=== PATIENT | male | born 1965 | race Caucasian/White ===

== ENCOUNTER 2017-01-27 01:35 | Inpatient (IN) | payer OTHER, MEDICAID ==
[~2017-01-27] VITALS: Ht 170.2 cm; Wt 83.9 kg
[2017-01-27] VITALS (14 sets, daily range): BP systolic 86–130; BP diastolic 50–83; PULSE 78–128; RESP 11–29; TEMP 97.7–98.5; O2SAT 96–99
[~2017-01-27 01:35] MED LIST: ALBU2.5V7 INH; ATII2 IM; COLL100 GT; COLL100 PO; DEPAK250 GT; DEPL250/5 GT; DIPH-179 PO; DULR10 RC; FERR15DR26 GT; IPRA0.2S6 INH; LACT1CAP7 GT; LEVA1.25 INH; LEVA1.25 NEB; LEVE100S GT; LEVE500T13 PO; LEVE500T53 GT; LORA-259 GT; LORA2TAB IM; MAGN400O4 GT; METO25TA6 GT; MULT9LIQ GT; PATANOL OP; PERIDEX MM; PHEN95CM GT; PIPE3.379 IV; REGL10 GT; SENN8.6T19 GT; TYLL650 GT; UTI-Stat Liquid GT; VALPROIC ACID GT; VIT500LI GT; ZINC220T GT; [UNRECOGNIZED DRUG - OTHER] GT
--- NOTE | 2017-01-27 01:35 | NUR ---
Patient to ER bed 2 to gown for evaluation. Side rails up. Report given to MAXIME Toussaint.
--- NOTE | 2017-01-27 01:35 | NUR ---
PT BIB [facility]ANCE FROM [facility] C/O SEIZURE 2X THAT LAST 5-7 MINUTES. DIAPHORETIC WITH HR 111. AFEBRILE.
--- NOTE | 2017-01-27 01:36 | NUR ---
ER at bedside examining patient.
--- NOTE | 2017-01-27 02:00 | NUR ---
# 22 gauge angiocath placed to RIGHT HAND. Use of asceptic technique. Opsite placed over site. Blood return noted. Blood for lab drawn from site. Flushed with 10 cc of normal saline. No evidence of infiltration noted. Patient tolerated well.
--- NOTE | 2017-01-27 02:20 | NUR ---
# 16 FR Yee catheter with use of sterile technique. Immediate return of 0 cc urine noted. Bedside drainage bag placed below level of bladder. Urine sample collected and sent to lab. Pt tolerated procedure WELL. Patient arrived with yee in place, changed due to standard of practice prior to admission. Patient unable to toilet self.
[2017-01-27] MEDS ORDERED: NACL 0.9% 1,000 ML IV ONE (02:21)
[2017-01-27 02:42] LABS: BASOPHILS # (AUTO) 0.2 K/uL (0.0-0.2); BASOPHILS % (AUTO) 1.3 % (0.0-2.0); EOSINOPHILS # (AUTO) 0.1 K/uL (0.0-0.4); EOSINOPHILS % (AUTO) 0.8 % (0.0-4.0); HEMATOCRIT 38.9 % (36-54); HEMOGLOBIN 12.9 g/dL (14.0-18.0); LYMPHOCYTES # (AUTO) 1.8 K/uL (1.0-5.5); MEAN CORPUSCULAR HEMOGLOBIN 29 pg (27-31); MEAN CORPUSCULAR HGB CONC 33 % (32-36); MEAN CORPUSCULAR VOLUME 88 fL (79.0-98.0); MONOCYTES # (AUTO) 1.6 K/uL (0.0-1.0); MONOCYTES % (AUTO) 10.7 % (1.7-9.3); NEUTROPHILS # (AUTO) 11.1 K/uL (1.8-7.7); NEUTROPHILS % (AUTO) 75.2 % (40.0-70.0); PLATELET COUNT (AUTO) 395 K/uL (130-430); RED BLOOD CELL COUNT(AUTO) 4.41 MIL/uL (4.2-6.2); RED CELL DISTRIBUTION WIDTH 13.3 % (9.0-15.0); WHITE BLOOD COUNT (AUTO) 14.8 K/uL (4.8-10.8)
[2017-01-27] MEDS ORDERED: ALBU2.5V7 INH ×2 (02:42→02:44)
[2017-01-27] MEDS ORDERED: CHLO473M5 MM (02:44)
[2017-01-27] MEDS ORDERED: DULR10 RC (02:45)
[2017-01-27] MEDS ORDERED: METO25TA6 GT (02:47)
[2017-01-27 02:53] LABS: CALCIUM 9.2 mg/dL (8.4-11.0); CREATININE 0.86 mg/dL (0.55-1.30); POTASSIUM 3.6 mmol/L (3.5-5.1)
[2017-01-27 02:58] LABS: ALBUMIN 3.4 g/dL (3.4-4.8); TOTAL BILIRUBIN 0.4 mg/dL (0.0-1.0); TOTAL PROTEIN, SERUM 7.9 g/dL (6.4-8.3)
[2017-01-27] MEDS ORDERED: KCL 20 mEq in D5/0.45NS 1000mL 1,000 ML IV SCH ×2 (04:00→10:00)
[2017-01-27 04:26] LABS: BILIRUBIN,URINE NEGATIVE (NEGATIVE); CLARITY/URINE CLEAR (CLEAR); COLOR,URINE YELLOW (YELLOW); GLUCOSE,URINE NEGATIVE (NEGATIVE); KETONES,URINE NEGATIVE (NEGATIVE); LEUKOCYTE ESTERASE ,URINE 1+ (NEGATIVE); NITRITE, URINE NEGATIVE (NEGATIVE); PH,URINE 5.5 (5.0-8.0); PROTEIN URINE NEGATIVE (NEGATIVE); UROBILINOGEN,URINE 0.2 (0.2-1.0)
--- NOTE | 2017-01-27 04:29 | NUR ---
PT HAD NO SEIZURE ACTIVITY AT ER AND NOT IN CP DISTRESS.
--- NOTE | 2017-01-27 04:30 | NUR ---
Patient will be admitted to care of DR GUERRA. Admitted to ICU-7 unit. Will go to room 7. Summary report printed. Report given to TED Lyman RN.
[2017-01-27 04:34] LABS: BLOOD, URINE TRACE (NEGATIVE)
[2017-01-27 04:37] LABS: BACTERIA,URINE FEW /HPF (None Seen); MUCUS,URINE None Seen /LPF (None Seen); RBC,URINE 0-3 /HPF (0-3)
--- NOTE | 2017-01-27 05:00 | NUR ---
Received pt from the ED. Pt here for seizure activity. No witnessed seizures in the ED per RN. Pt opens eyes when name called and tracks. Non verbal. Trach to O22L. ST on tele. Afebrile. Upper and lower extremities are contracted. Right hand PIV patent and intact when flushed. Gutiérrez catheter in place and secured. Gtube is clamped. Head of bed elevated. Will continue to monitor.
[2017-01-27] MEDS: LORazepam 2 MG/ML VIAL IVP PRN ×2 (05:30→12:34)
--- NOTE | 2017-01-27 06:32 | NUR ---
SPOKE WITH RYAN FOR CONSULT WITH DR TREJO.
[2017-01-27] MEDS ORDERED: FLU VACC QS 2016-17(36MOS+)/PF 0.5 ML/SYR SYRINGE I.M. PRN (06:45)
--- NOTE | 2017-01-27 06:50 | NUR ---
Isosource started at 50ml/hr via g tube. Will continue to monitor.
--- NOTE | 2017-01-27 07:15 | NUR ---
[place] of Care Pt is bed, on trach connected to 2L oxygen. NO SOB. BP = 81/52 MAP 66. Per AM nurse MAXIME Smith MD is aware of it because that's how it was in the E.R. Awaiting IVF ordered from pharmacy. Will continue to monitor.
--- NOTE | 2017-01-27 07:45 | NUR ---
Nursing Update Called pharmacy to follow up re: pt's IVF. Charge nurse MAXIME Ron made aware of pt's BP and that I already called pharmacy to follow up on IVF. Will continue to monitor.
[2017-01-27] MEDS: KCL 20 mEq in D5/0.45NS 1000mL 1,000 ML IV SCH ×2 (08:42→08:43)
[2017-01-27] MEDS ORDERED: MILK OF MAGNESIA 30 ML UDC GT SCH (08:45)
[2017-01-27] MEDS ORDERED: ACETAMINOPHEN 650 MG/20.3 ML UDC GT SCH ×2 (08:45)
[2017-01-27] MEDS ORDERED: BISACODYL 10 MG/SUPPOSITORY RC PRN (08:45)
[2017-01-27] MEDS: CHLORHEXIDINE GLUCONATE 15 ML/DOSE, 480 ML MM SCH ×3 (08:45→21:41)
[2017-01-27] MEDS: METOPROLOL TARTRATE 25 MG TABLET GT SCH ×3 (08:45→21:44)
[2017-01-27] MEDS: ALBUTEROL SULFATE 0.083% 2.5 MG/3 ML VIAL.NEB INH SCH ×3 (08:45→19:52)
[2017-01-27] MEDS ORDERED: ALBUTEROL SULFATE 0.083% 2.5 MG/3 ML VIAL.NEB INH PRN (08:45)
[2017-01-27] MEDS ORDERED: MILK OF MAGNESIA 30 ML UDC PO PRN (08:45)
--- NOTE | 2017-01-27 08:59 | NUR ---
Nutrition Update Broderick Scale 11 noted. Pt admitted for seizure disorder. Diet: Isosource 1.5 at 54 ml/hr, Free Water Flush: 200 q4 via G-tube BMI: 29.0 kg/m2 RD to follow per nutrition care standards.
[2017-01-27] MEDS: VALPROIC ACID ORAL SYRUP 250 MG/5 ML UDC GT SCH ×3 (09:00→21:00)
[2017-01-27] MEDS: levETIRAcetam 500 MG TABLET GT SCH ×3 (09:00→21:42)
--- NOTE | 2017-01-27 09:00 | NUR ---
Called Dr. Abdi To ask for PICC line order since the pt is hard stick and the peripheral IV is unstable. Awaiting MD call back.
--- NOTE | 2017-01-27 09:20 | NUR ---
Received orders from Dr. Abdi to put PICC line.
--- NOTE | 2017-01-27 09:22 | NUR ---
Medication Administration Peridex and Depakene are not available at this time. Pharmacy made aware to deliver. Used CHG oral rinse to do oral care.
--- NOTE | 2017-01-27 11:00 | NUR ---
PICC line nurse MAXIME Rubalcava at bedside to insert PICC line.
[2017-01-27] MEDS: NACL 0.9% 1,000 ML IV SCH ×2 (11:06→20:00)
--- NOTE | 2017-01-27 12:00 | NUR ---
Nursing No SOB. No seizure observed. Seizure precaution in place. Safe environment provided.
--- NOTE | 2017-01-27 16:15 | NUR ---
Broderick Scale Evaluation: Patient evaluated for a low Broderick score of 11. Patient is awake, non-verbal, non-responsive to verbal commands, and received in an ICU [facility] bed with a Haylie XPRT mattress. Patient needs to be turned in bed. Skin is poor; Bilateral heels have redness; G-Tube eri-site has erythema from leakage; Sacral-Coccygeal/Buttocks areas have erythema from IAD. Recommend reposition patient side to side only every two hours with pillow support, and off-load heels and pressure areas with pillows for pressure re-distribution. Perform skin care and monitor skin integrity q shift. Use moisture barrier cream on buttocks, Eri, G-Tube eri-site, and other moisture susceptible areas qid and PRN for soiling. Maintain patient on a low air-loss mattress.
--- NOTE | 2017-01-27 17:00 | NUR ---
Dr. Jin Abdi made aware that [facility] was held @ 9:00 d/t low BP @0800. Lucius phipps MD.
--- NOTE | 2017-01-27 18:00 | NUR ---
Nursing update Pt resting in bed. NO SOB. No seizure observed throughout the shift. Afebrile. No sign of pain. Safe environment provided.
--- NOTE | 2017-01-27 19:15 | NUR ---
Report given to MAXIME Lam and endorsed all care. Pt in no distress.
--- NOTE | 2017-01-27 20:10 | NUR ---
TRANSFERRED TO [facility] RM 133-A VIA BED IN SATISFACTORY CONDITION. VSS 98.2, 114/66, 97%, 15, 100. FULL REPORT GIVEN TO MAXIME REYEZ.
--- NOTE | 2017-01-27 20:15 | NUR ---
TRANSFERRED FROM ICU PT TRANSFERRED FROM ICU. PT AWAKE AND OPEN EYES BUT NON VERBAL. NOTED TRACHE ON TBAR 2L OF 02 WITH O2 SAT 98%. GTUBE CLAMPED STOMA WITH MILD REDNESS AND YELLOW DISCHARGE AROUND IT, WILL CLEAN IT AND COVER IT WITH NEW DRESSING. KEITH CATHETER TO GRAVITY DRAINING YELLOW URINE. RIGHT UPPER ARM MIDLINE PRESENT AND ASSESSED, NOTED IV ON LEFT FOOT 22G SALINE LOCKED. UPPER AND LOWER EXTREMITIES CONTRACTED. SEIZURE PUDDINGS IN PLACE, PT RESTING ON AIR MATTRESS. CONTACT ISOLATION FOR HISTORY OF MDRO/LABORER MINE OF SPUTUM.
[2017-01-27] MEDS: ENOXAPARIN SODIUM 40 MG/0.4 ML SYRINGE SUBCUT SCH (21:42)
[2017-01-27] MEDS: SENNOSIDES 8.6 MG TABLET GT SCH (21:42)
[2017-01-28] VITALS (10 sets, daily range): BP systolic 118–158; BP diastolic 60–99; PULSE 68–111; RESP 16–22; TEMP 98–98.7; O2SAT 94–100
--- NOTE | 2017-01-28 00:34 | NUR ---
ORAL CARE PATIENT TOLERATED ORAL CARE, NO DISTRESS NOTED.
[2017-01-28] MEDS: ALBUTEROL SULFATE 0.083% 2.5 MG/3 ML VIAL.NEB INH SCH ×4 (00:50→22:59)
--- NOTE | 2017-01-28 02:00 | NUR ---
NOTES PATIENT RESTING. NO SIGNS OR SYMPTOMS OF DISTRESS NOTED. BED IN LOWEST POSITION, BED ALARM. WILL CONTINUE TO MONITOR.
--- NOTE | 2017-01-28 04:00 | NUR ---
WOUND CARE PICTURES TAKEN
--- NOTE | 2017-01-28 04:00 | NUR ---
NOTES ORAL CARE PROVIDED
--- NOTE | 2017-01-28 06:00 | NUR ---
NOTES PATIENT IS RESTING. NO SIGNS OR SYMPTOMS OF DISTRESS NOTED. BED IN LOWEST POSITION, BED ALARM, SEIZURE PRECAUTIONS IN PLACE PER PROTOCOL. WILL CONTINUE TO MONITOR.
[2017-01-28] MEDS: NACL 0.9% 1,000 ML IV SCH ×2 (07:13→16:00)
--- NOTE | 2017-01-28 07:30 | NUR ---
CLOSING NOTES PATIENT IS RESTING. NO SIGNS OR SYMPTOMS OF DISTRESS NOTED. BED IN LOWEST POSITION, BED ALARM, SEIZURE PRECAUTIONS IN PLACE PER PROTOCOL. WILL ENDORSE TO DAY SHIFT NURSE.
--- NOTE | 2017-01-28 07:35 | NUR ---
AM ROUNDS PATIENT RESTING IN BED, AWAKE, ALERT AND ORIENTED X1, NONVERBAL, NO SIGNS OF PAIN NOTED, ASSESSMENT COMPLETE, TRACHEOSTOMY IN PLACE WITH TBAR AT 2LITERS O2, PATIENT IS TOLERATING WELL, SUCTIONED THE PATIENT WILL SMALL, LESS THAN 1 ML OF SECRETIONS, G TUBE NOTED WITH DRESSING AT INSERTION SITE, CLEAN, DRY AND INTACT, DRESSING WAS CHANGED BY NOC SHIFT NURSE, TOLERATED TUBE FEEDING WELL, NO RESIDUAL OUTPUT NOTED AT THIS TIME, ASPIRATION PRECAUTIONS IN PLACE, SKIN ASSESSMENT NOTED REDNESS ON BUTTOCKS, ALL EXTREMITIES ARE CONTRACTED AND PATIENT IS UNABLE TO TURN HIMSELF, WILL TURN EVERY TWO HOURS AND NEEDED, KEITH CATHETER IN PLACE, DRAINING TO GRAVITY, CLEAR, YELLOW URINE, PATIENT IS ON A LOW AIR LOSS MATTRESS, BED IN LOWEST POSITION, THREE SIDE RAILS UP, BED ALARM ON, BED CLOSE TO NURSE'S STATION, FALL AND ISOLATION PRECAUTIONS IN PLACE, WILL CONTINUE TO MONITOR THE PATIENT.
[2017-01-28 07:38] LABS: CALCIUM 8.8 mg/dL (8.4-11.0); CREATININE 0.48 mg/dL (0.55-1.30); POTASSIUM 4.7 mmol/L (3.5-5.1)
[2017-01-28 08:27] LABS: BASOPHILS # (AUTO) 0.2 K/uL (0.0-0.2); BASOPHILS % (AUTO) 1.4 % (0.0-2.0); EOSINOPHILS # (AUTO) 0.1 K/uL (0.0-0.4); HEMATOCRIT 35.8 % (36-54); HEMOGLOBIN 12.2 g/dL (14.0-18.0); LYMPHOCYTES # (AUTO) 3.2 K/uL (1.0-5.5); LYMPHOCYTES % (AUTO) 28.5 % (20.5-51.5); MEAN CORPUSCULAR HEMOGLOBIN 30 pg (27-31); MEAN CORPUSCULAR HGB CONC 34 % (32-36); MEAN CORPUSCULAR VOLUME 88 fL (79.0-98.0); MONOCYTES # (AUTO) 1.2 K/uL (0.0-1.0); MONOCYTES % (AUTO) 10.9 % (1.7-9.3); NEUTROPHILS # (AUTO) 6.5 K/uL (1.8-7.7); NEUTROPHILS % (AUTO) 58.2 % (40.0-70.0); PLATELET COUNT (AUTO) 326 K/uL (130-430); RED BLOOD CELL COUNT(AUTO) 4.06 MIL/uL (4.2-6.2); RED CELL DISTRIBUTION WIDTH 13.4 % (9.0-15.0)
[2017-01-28 08:31] LABS: WHITE BLOOD COUNT (AUTO) 11.2 K/uL (4.8-10.8)
[2017-01-28] MEDS: levETIRAcetam 500 MG TABLET GT SCH ×2 (09:27→21:23)
[2017-01-28] MEDS: METOPROLOL TARTRATE 25 MG TABLET GT SCH ×2 (09:27→21:23)
[2017-01-28] MEDS: CHLORHEXIDINE GLUCONATE 15 ML/DOSE, 480 ML MM SCH ×2 (09:28→21:22)
[2017-01-28] MEDS: VALPROIC ACID ORAL SYRUP 250 MG/5 ML UDC GT SCH ×2 (09:29→22:14)
--- NOTE | 2017-01-28 09:30 | NUR ---
Medication Pass Medications was given to patient, 0ml of residual before medication was given, patient tolerated well, no signs of distress, bed in lowest position, three side rails up, fall precaution in place, seizure precaution in place, will continue to monitor patient.
--- NOTE | 2017-01-28 12:00 | NUR ---
RN ROUNDS Patient has shortness of breath, no signs of restlessness or pain, suctioned patient, tolerated well, called RT to give PRN breathing treatment, bed in lowest position, bed alarm on, bed close to nursing station, three side rails ups, fall, isolation, aspiration precaution in place. Will continue to monitor patient.
--- NOTE | 2017-01-28 13:15 | NUR ---
Breathing treatment follow up Patient was given breathing treatment by respiratory therapist, patient was also deep suctioned and put on humidified oxygen, patient tolerated well, bed in lowest position, three side rails up,bed alarm on, fall, aspiration, isolation, seizure precautions in place, will continue to monitor patient.
--- NOTE | 2017-01-28 14:15 | NUR ---
RN ROUNDS Patient is stable, no signs of distress, no signs of pain or distress, patient is resting in bed. Bed in lowest position, three side rails up, bed alarm on, fall, isolation, aspiration, seizure precaution in place, will continue to monitor patient.
--- NOTE | 2017-01-28 15:27 | NUR ---
Dr. Tal Hammond on patient, ordered for vent placement, also ordered IV antibiotic, will follow up.
[2017-01-28] MEDS: CEFEPIME 1 GM in D5W 50 ML IV SCH ×2 (15:58→22:12)
--- NOTE | 2017-01-28 16:10 | NUR ---
RN ROUNDING IV antibiotic given to patient, Respiratory Therapist at patient's bedside connecting patient to Vent, bed in lowest position, three side rails up, fall, isolation, aspiration, seizure precautions in place, will continue to monitor patient.
--- NOTE | 2017-01-28 16:15 | NUR ---
RT NOTE PT PLACED ON VENT AT THIS TIME PER MD ORDER, AC 10 500 40%, TRACH CUFF INFLATED WITH 10CC OF AIR, RN INFORMED OF SETTINGS, NO RESP DISTRESS NTD, VENT FXNG PRPLY
--- NOTE | 2017-01-28 18:47 | NUR ---
Closing Note Patient is in stable condition, patient tolerating vent well, tolerating tube feeding, flushed with 200ml of water, no signs of distress or pain, all needs met, will endorse report to NOC shift nurse, bed in lowest position, three side rails up, bed alarm on, fall, aspiration, seizure, isolation precautions in place.
--- NOTE | 2017-01-28 19:20 | NUR ---
OPENING NOTES RECEIVED REPORT FROM DAY SHIFT NURSE AT BEDSIDE. PATIENT IS STABLE. VITAL SIGNS ARE STABLE. NO SIGNS OR SYMPTOMS OF DISTRESS NOTED. VISIBLE RISE AND FALL OF CHEST. GTUBE FEEDING, AND IV LINES AND PATENT. SEIZURE PRECAUTIONS IN PLACE. BED IN LOWEST POSITION, BED ALARM IS ON. WILL CONTINUE TO MONITOR.
--- NOTE | 2017-01-28 21:20 | NUR ---
NOTES PATIENT TOLERATING VENT WELL. SETTINGS WERE VERIFIED PER 's ORDER. PATIENT IS STABLE NO SIGN OSF SHMPTOMS OF DITRESS NOTED. BED IN LOWEST POSITION, THREE SIDE RAILS UP, BED ALARM ON; SEIZURE, FALL, AND ISOLATION PRECAUTIONS IN PLACE. WILL CONTINUE TO MONITOR.
[2017-01-28] MEDS: ENOXAPARIN SODIUM 40 MG/0.4 ML SYRINGE SUBCUT SCH (21:22)
[2017-01-28] MEDS: SENNOSIDES 8.6 MG TABLET GT SCH (21:23)
--- NOTE | 2017-01-28 22:00 | NUR ---
WATER FLUSH GIVEN PER 'S ORDERS, OF 200 ML. PATIENT TOLERATED WELL. VERY LITTLE RESIDUAL. WILL CONTINUE TO MONITOR.
--- NOTE | 2017-01-28 23:20 | NUR ---
NOTES PATIENT RESTING. ALL SETTINGS ARE CONFIRMED. NO SIGNS OR SYMPTOMS OF DISTRESS NOTED. WILL CONTINUE TO MONITOR.
[2017-01-29] VITALS (18 sets, daily range): BP systolic 95–146; BP diastolic 48–86; PULSE 87–116; RESP 18–21; TEMP 97.8–98.9; O2SAT 97–99; Ht 170.2 cm; Wt 83.9 kg
--- NOTE | 2017-01-29 | NUR ---
NOTES PATIENT RESTING COMFORTABLY. SETTINGS WERE VERIFIED. BED IN LOWEST POSITION, BED ALARM ARM, WILL CONTINUE TO MONITOR.
[2017-01-29] MEDS: ALBUTEROL SULFATE 0.083% 2.5 MG/3 ML VIAL.NEB INH SCH ×4 (01:46→19:45)
--- NOTE | 2017-01-29 02:00 | NUR ---
NOTES PATIENT RESTING. SLEEPING. BED IN LOWEST POSITION, BED ALARM ON. WILL CONTINUE TO MONITOR.
[2017-01-29] MEDS: LORazepam 2 MG/ML VIAL IVP PRN ×3 (02:25→13:14)
--- NOTE | 2017-01-29 04:00 | NUR ---
WATER FLUSH GIVEN PER 'S ORDERS, OF 200 ML. PATIENT TOLERATED WELL. VERY LITTLE RESIDUAL. WILL CONTINUE TO MONITOR.
[2017-01-29] MEDS: NACL 0.9% 1,000 ML IV SCH ×3 (04:22→18:30)
--- NOTE | 2017-01-29 05:46 | NUR ---
SPUTUM CULTURE PENDING LAB STATED THEY DO NOT HAVE A SPUTUM CULTURE THERE. SERGIO, RT WILL COLLECT IT.
[2017-01-29 06:36] LABS: BASOPHILS # (AUTO) 0.1 K/uL (0.0-0.2); BASOPHILS % (AUTO) 0.5 % (0.0-2.0); EOSINOPHILS # (AUTO) 0.1 K/uL (0.0-0.4); HEMATOCRIT 33.4 % (36-54); HEMOGLOBIN 11.3 g/dL (14.0-18.0); LYMPHOCYTES # (AUTO) 2.1 K/uL (1.0-5.5); MEAN CORPUSCULAR HEMOGLOBIN 30 pg (27-31); MEAN CORPUSCULAR HGB CONC 34 % (32-36); MEAN CORPUSCULAR VOLUME 89 fL (79.0-98.0); MONOCYTES # (AUTO) 1.6 K/uL (0.0-1.0); MONOCYTES % (AUTO) 11.4 % (1.7-9.3); NEUTROPHILS # (AUTO) 9.8 K/uL (1.8-7.7); NEUTROPHILS % (AUTO) 72.1 % (40.0-70.0); PLATELET COUNT (AUTO) 319 K/uL (130-430); RED BLOOD CELL COUNT(AUTO) 3.75 MIL/uL (4.2-6.2); RED CELL DISTRIBUTION WIDTH 13.5 % (9.0-15.0); WHITE BLOOD COUNT (AUTO) 13.7 K/uL (4.8-10.8)
--- NOTE | 2017-01-29 06:51 | NUR ---
CLOSING NOTES PATIENT SHOWS SIGNS OF DISTRESS. DIAPHORETIC, AGITATED. VENT SETTINGS WERE VERIFIED, PULSE OXIMETER IS SATING AT 98%. VITAL SIGNS CHECKED AND WERE STABLE. PATIENT WAS STILL VISIBLY AGITATED. PATIENT AFEBRILE. MEDICATION, ATIVAN, WAS GIVEN. SEIZURE, FALL PRECAUTIONS, ASPIRATION PRECAUTIONS ARE ALL IN PLACE. WILL ENDORSE CARE TO THE DAY SHIFT NURSE.
[2017-01-29 06:55] LABS: CALCIUM 8.9 mg/dL (8.4-11.0); CREATININE 0.56 mg/dL (0.55-1.30); POTASSIUM 4.2 mmol/L (3.5-5.1)
--- NOTE | 2017-01-29 07:30 | NUR ---
AM ROUNDS Patient is resting in bed, awake, alert and oriented x1, patient is nonverbal, no signs of distress or pain noted, assessment done, all extremities contracted, will continue to turn every two hours and as needed, bed in lowest position, bed alarm on, three side rails up, fall,isolation, seizure precautions in place, will continue to monitor patient
[2017-01-29 08:07] LABS: BLOOD GAS PH 7.429 (7.350-7.450)
[2017-01-29 08:08] LABS: ABG TOTAL HEMOGLOBIN 11.8 G/dL (12.0-18.0); BLOOD GAS COHb% 0.3 % (0.5-1.5); BLOOD GAS HHB 1.5 % (0.0-6.0); BLOOD O2Hb% 97.5 % (94.0-97.0)
[2017-01-29] MEDS: METOPROLOL TARTRATE 25 MG TABLET GT SCH ×2 (09:00→22:10)
[2017-01-29] MEDS: CEFEPIME 1 GM in D5W 50 ML IV SCH ×2 (09:14→22:13)
[2017-01-29] MEDS: levETIRAcetam 500 MG TABLET GT SCH ×2 (09:14→22:07)
[2017-01-29] MEDS: CHLORHEXIDINE GLUCONATE 15 ML/DOSE, 480 ML MM SCH ×2 (09:15→22:14)
[2017-01-29] MEDS: VALPROIC ACID ORAL SYRUP 250 MG/5 ML UDC GT SCH ×2 (09:15→22:13)
--- NOTE | 2017-01-29 09:20 | NUR ---
Medication Pass Medications was given to patient, 0ml of residual before medication was given, patient tolerated well, no signs of distress, bed in lowest position, three side rails up, fall, seizure, aspiration, isolation precaution in place, will continue to monitor patient.
--- NOTE | 2017-01-29 10:15 | NUR ---
RN ROUNDS Patient is resting in bed, no signs of distress, batteries for tele-monitor changed, bed in lowest position, three side rails up, bed alarm on, fall, aspiration, isolation, seizure precautions in place.
--- NOTE | 2017-01-29 11:44 | NUR ---
CONSULT ID LEUKOCYTOSIS DR CHEN [phone] S/W [facility] OFFICE @ [id number]
--- NOTE | 2017-01-29 12:30 | NUR ---
RN ROUNDS Patient is currently resting in bed, no signs of distress, no signs of pain, bed in lowest position, three side rail up, fall, seizure, isolation, aspiration precautions in place, will continue to monitor patient
[2017-01-29] MEDS: LINEZOLID 300 ML IV SCH ×2 (13:13→23:28)
--- NOTE | 2017-01-29 14:01 | NUR ---
RN ROUNDS Patient is resting in bed, Respiratory therapist is currently in room giving breathing treatment, patient is tolerating well, bed in lowest position, three side rails up, bed alarm on, fall, seizure, isolation, precautions in place, will continue to monitor
--- NOTE | 2017-01-29 16:05 | NUR ---
RN ROUNDs Patient is stable no signs of discomfort or pain noted at this time, bed in lowest position, bed alarm on, three side rails up, fall, seizure, isolation precautions in place, will continue to monitor patient
--- NOTE | 2017-01-29 16:19 | NUR ---
Broderick Re-Evaluation: Wound Consult received for a low Broderick score. Patient re-evaluated for a low Broderick score of 8. Patient is awake, non-verbal, non-responsive to verbal commands, and received in an [place] bed with an IsoFlex JESSICA mattress with low air-loss therapy. Patient needs to be turned in bed. Skin is poor; Bilateral heels have redness; G-Tube eri-site has erythema from leakage; Sacral-Coccygeal/Buttocks areas have erythema from IAD. Recommend continue: Reposition patient side to side only every two hours with pillow support, and off-load heels and pressure areas with pillows for pressure re-distribution. Perform skin care and monitor skin integrity q shift. Use moisture barrier cream on buttocks, Eri, G-Tube eri-site, and other moisture susceptible areas qid and PRN for soiling. Maintain patient on a low air-loss mattress. Skin Assessment: 1) Right Dorsal Foot: Skin tear. 100% pink tissue. No odor, no drainage. Recommend: Cleanse site with normal Saline. Pat dry. Put SurePrep onto eri-tear. Apply oil emulsion dressing to tear, followed by non-adherent pad. Wrap with clif wrap. Perform tear care daily, and as needed for dressing soling or dislodgment. Will continue to follow as a Broderick.
--- NOTE | 2017-01-29 18:41 | NUR ---
Closing Note Patient is in stable condition, patient tolerating vent well, tolerating tube feeding, flushed with 200ml of water, no signs of distress or pain, all needs met, will endorse report to NOC shift nurse, bed in lowest position, three side rails up, bed alarm on, fall,seizure, isolation precautions in place.
--- NOTE | 2017-01-29 19:50 | NUR ---
pm assessment: eyes open. non-verbal to questions asked. no visible s/s of pain. no respiratory distress noted trach intact. ventilator settings at ac10, mbd604%,tidal volume 500, peep 0. g-tube intact with feeding infusing at 54ml/hr. tolerating without distress. contact isolation in progress. bed in low position. seizure/aspiration precautions in progress.
--- NOTE | 2017-01-29 21:30 | NUR ---
RN ROUNDS PT. RESTING QUIETLY, VITAL SIGNS STABLE, NO DISTRESS NOTED, NO SEIZURE ACTIVITY NOTED, REPOSITIONED WITH PILLOW SUPPORT, WILL CONTINUE TO MONITOR.
[2017-01-29] MEDS: SENNOSIDES 8.6 MG TABLET GT SCH (22:08)
[2017-01-29] MEDS: ENOXAPARIN SODIUM 40 MG/0.4 ML SYRINGE SUBCUT SCH (22:14)
--- NOTE | 2017-01-29 22:30 | NUR ---
RN ROUNDS PT. RESTING QUIETLY, VITAL SIGNS STABLE, NO DISTRESS NOTED, NO SEIZURE ACTIVITY NOTED, REPOSITIONED WITH PILLOW SUPPORT, WILL CONTINUE TO MONITOR.
[2017-01-30] VITALS (15 sets, daily range): BP systolic 93–141; BP diastolic 63–82; PULSE 80–101; RESP 16–24; TEMP 97.2–99.1; O2SAT 95–100
--- NOTE | 2017-01-30 | NUR ---
RN ROUNDS PT. RESTING QUIETLY, VITAL SIGNS STABLE, NO DISTRESS NOTED, NO SEIZURE ACTIVITY NOTED, REPOSITIONED WITH PILLOW SUPPORT, WILL CONTINUE TO MONITOR.
--- NOTE | 2017-01-30 00:30 | NUR ---
Rounds: Respirations remain regular/diminished. Using accessory muscles. VS stable. No s/s of distress at this time. Side rails up with bed in low position.
[2017-01-30] MEDS: ALBUTEROL SULFATE 0.083% 2.5 MG/3 ML VIAL.NEB INH SCH ×4 (00:43→20:17)
[2017-01-30] MEDS: LORazepam 2 MG/ML VIAL IVP PRN (01:05)
--- NOTE | 2017-01-30 01:05 | NUR ---
AGITATION, ATIVAN PT. AGITATED AND RESTLESS, ATIVAN 2MG IVP GIVEN ORDERED, VITAL SIGNS STABLE, NO DISTRESS NOTED, WILL CONTINUE TO MONITOR.
--- NOTE | 2017-01-30 03:00 | NUR ---
RN ROUNDS PT. RESTING QUIETLY, VITAL SIGNS STABLE, NO DISTRESS NOTED, NO SEIZURE ACTIVITY NOTED, REPOSITIONED WITH PILLOW SUPPORT, WILL CONTINUE TO MONITOR.
--- NOTE | 2017-01-30 05:00 | NUR ---
BED BATH, CHG BATH, WOUND CARE BED BATH DONE, CHG BATH DONE, NEW DRESSING APPLIED TO G-TUBE AREA, G-TUBE AREA NOTED WITH MACERATION AND DARK YELLOW, THICK DRAINAGE, CLEANSED WITH NS, PATTED DRY WITH GAUZE, Z-GUARD APPLIED, 4X4 DRESSING APPLIED, WOUND CARE DONE TO RIGHT FOOD SKIN TEAR, CLEANSED WITH NS, PATTED DRY WITH GAUZE, OIL EMULSION DRESSING APPLIED, NON ADHERENT PAD APPLIED, SECURED WITH KRELIX WRAP. SIGNED AND DATED.
--- NOTE | 2017-01-30 06:50 | NUR ---
CLOSING NOTES PT. RESTING QUIETLY, VITAL SIGNS STABLE, NO DISTRESS NOTED, NO S/S OF PAIN OR DISCOMFORT, NO SEIZURES NOTED THROUGHOUT THE NIGHT. NO RESIDUALS NOTED FOR THE G-TUBE. MIDLINE ON JONATHAN IN PLACE. KEITH CATH IN PLACE, SEIZURE PADS IN PLACE, KEPT COMFORTABLE.
[2017-01-30 07:09] LABS: HEMATOCRIT 30.5 % (36-54); HEMOGLOBIN 10.2 g/dL (14.0-18.0); MEAN CORPUSCULAR HEMOGLOBIN 30 pg (27-31); MEAN CORPUSCULAR HGB CONC 34 % (32-36); MEAN CORPUSCULAR VOLUME 88 fL (79.0-98.0); PLATELET COUNT (AUTO) 316 K/uL (130-430); RED BLOOD CELL COUNT(AUTO) 3.48 MIL/uL (4.2-6.2); RED CELL DISTRIBUTION WIDTH 13.4 % (9.0-15.0); WHITE BLOOD COUNT (AUTO) 12.6 K/uL (4.8-10.8)
[2017-01-30 07:18] LABS: CALCIUM 8.7 mg/dL (8.4-11.0); CREATININE 0.59 mg/dL (0.55-1.30); POTASSIUM 3.9 mmol/L (3.5-5.1)
--- NOTE | 2017-01-30 07:50 | NUR ---
RT NOTES MAXIME Mg and MAXIME Garcia made aware of swelling on pt's right upper chest below the neck. No crackles/crepitus palpated.
--- NOTE | 2017-01-30 08:00 | NUR ---
Initial Notes Patient non-verbal. Eyes open, does not track or follow commands. Respirations even and unlabored on vent; settings verified and are correct. IV access patent and infusing per MD orders. Mass noted to right upper chest area relieved with repositioning; appears to be positional, will inform MD. G-tube patent and infusing per MD orders; zero residuals at this time. Fall and safety precautions in place. Bed in lowest and locked position. Room near nurses station for patient safety.
[2017-01-30] MEDS: levETIRAcetam 500 MG TABLET GT SCH ×2 (09:04→21:31)
[2017-01-30] MEDS: CHLORHEXIDINE GLUCONATE 15 ML/DOSE, 480 ML MM SCH ×2 (09:06→21:36)
[2017-01-30] MEDS: METOPROLOL TARTRATE 25 MG TABLET GT SCH ×2 (09:06→21:32)
[2017-01-30] MEDS: VALPROIC ACID ORAL SYRUP 250 MG/5 ML UDC GT SCH ×2 (09:08→21:34)
[2017-01-30] MEDS: CEFEPIME 1 GM in D5W 50 ML IV SCH ×2 (09:09→21:36)
[2017-01-30] MEDS: LINEZOLID 300 ML IV SCH ×2 (09:10→23:10)
[2017-01-30 09:17] LABS: BASOPHILS % (MANUAL) 0 % (0-2); EOSINOPHILS % (MANUAL) 2 % (0-7); LYMPHOCYTES % (MANUAL) 29 % (20-46); MONOCYTES % (MANUAL) 12 % (0-11)
[2017-01-30] MEDS: NACL 0.9% 1,000 ML IV SCH ×2 (09:23→18:15)
[2017-01-30] MEDS ORDERED: ACETAMINOPHEN 650 MG/20.3 ML UDC GT PRN (09:57)
--- NOTE | 2017-01-30 16:03 | NUR ---
Notes Patient tolerating vent well, no respiratory distress noted. Oral hygiene provided.
--- NOTE | 2017-01-30 17:08 | NUR ---
Note Dr. Abdi was made aware of mass observed this morning. He stated it is the patient's clavicle and is positional.
--- NOTE | 2017-01-30 19:03 | NUR ---
Closing Note Patient needs met throughout shift. Patient tolerating vent well. Will continue to monitor until patient care is endorsed to oncoming shift nurse.
--- NOTE | 2017-01-30 20:00 | NUR ---
PM assessment: Eyes open. Non-verbal to questions. Responds to tactile stimuli by flexion of extremities. No notable s/s of discomfort at this time. Seizure precautions in progress. Contact isolation in progress. Will continue to monitor. Side rails up with bed in low position.
[2017-01-30] MEDS: SENNOSIDES 8.6 MG TABLET GT SCH (21:31)
[2017-01-30] MEDS: ENOXAPARIN SODIUM 40 MG/0.4 ML SYRINGE SUBCUT SCH (21:35)
--- NOTE | 2017-01-30 22:15 | NUR ---
Rounds: Eyes open. PM care in progress. G-tube intact with 0 residual. Medications crushed and tube flushed with approx. 150cc NS. Tube flushing easily. Repositioned for comfort.
[2017-01-31] VITALS (11 sets, daily range): BP systolic 119–132; BP diastolic 72–89; PULSE 72–103; RESP 18–24; TEMP 96.7–99.6; O2SAT 96–100
--- NOTE | 2017-01-31 02:30 | NUR ---
Rounds: Patient has good affect with Ativan 2mg given earlier for restlessness. Respirations remain unlabored and regular. No Distress noted at this time.
[2017-01-31] MEDS: LORazepam 2 MG/ML VIAL IVP PRN ×2 (03:32→11:54)
--- NOTE | 2017-01-31 05:00 | NUR ---
CHG BATH PT. HAD A MODERATE AMOUNT OF BROWN, FORMED BM, BARRY CARE DONE, BED BATH DONE, CHG BATH DONE, NEW LINEN AND NEW GOWN APPLIED.
--- NOTE | 2017-01-31 06:00 | NUR ---
Closing note: Patient resting more quietly after Ativan 2mg was given earlier. Bed bath given with repositioning. No distress noted. Contact isolation, Seizure Precautions and Aspiration Precautions in progress.
--- NOTE | 2017-01-31 06:21 | NUR ---
T-BAR PT. PLACED ON T-BAR @ 4L BY RESPIRATORY THERAPIST, NO DISTRESS NOTED, VITAL SIGNS STABLE, NO SEIZURE ACTIVITY NOTED.
--- NOTE | 2017-01-31 08:15 | NUR ---
INITIAL ROUNDS Received pt awake with eyes open, does not track, withdraws from tactile stimulation, non-verbal. Pt on O2 via T-Bar with no s/s resp distress. No s/s pain or discomfort. Oral care provided. Pt on contact isolation precautions, HOB elevated for aspiration precautions, seizure precautions in place with no s/s seizure activity. Noted dressing clean, dry and intact to anterior foot. IVF infusing well at ordered rate to JONATHAN PICC/midline. Isosource infusing well via G-Tube at ordered rate, no residual noted. Gutiérrez draining to gravity with yellow urine. Side rails up x3 and room near nursing station for safety.
--- NOTE | 2017-01-31 08:47 | NUR ---
DISCHARGE PLANNING DC Planning order for LTAC evaluation and transfer. Faxed DC Planning order to [facility] office [phone]. Notified Meena Regan Will follow up. Addendum: 01/31/17 at 1443 by Amanda Dunlap DP Placed transportation packet with CD in nurses station. Pending evaluation for bed assignment. Addendum: 01/31/17 at 1653 by Amanda Dunlap DP spoke with [facility] patient accepted [facility] and currently pending bed assignment. Pending discharge order.
[2017-01-31] MEDS: levETIRAcetam 500 MG TABLET GT SCH ×2 (09:27→21:52)
[2017-01-31] MEDS: METOPROLOL TARTRATE 25 MG TABLET GT SCH ×2 (09:31→21:53)
[2017-01-31] MEDS: CEFEPIME 1 GM in D5W 50 ML IV SCH ×2 (09:32→22:01)
[2017-01-31] MEDS: LINEZOLID 300 ML IV SCH ×2 (09:32→23:07)
[2017-01-31] MEDS: VALPROIC ACID ORAL SYRUP 250 MG/5 ML UDC GT SCH ×2 (09:37→21:00)
[2017-01-31] MEDS: CHLORHEXIDINE GLUCONATE 15 ML/DOSE, 480 ML MM SCH ×2 (09:37→21:00)
--- NOTE | 2017-01-31 10:25 | NUR ---
ROUNDS Pt repositioned with pillow support and heels off-loaded with a pillow between his legs due to legs contracted. No s/s resp distress, pt grimacing with frown lines on forehead-pt given Tylenol as ordered. All precautions remain in place.
--- NOTE | 2017-01-31 10:30 | NUR ---
Broderick Re-Evaluation: Wound Consult received for a low Broderick score. Patient re-evaluated for a low Broderick score of 10. Patient is awake, non-verbal, non-responsive to verbal commands, and received in an [place] bed with an IsoFlex JESSICA mattress with low air-loss therapy. Patient needs to be turned in bed. Skin is poor; Bilateral heels have redness; G-Tube eri-site has erythema from leakage, and hypergranulated stoma; Sacral-Coccygeal/Buttocks areas have erythema from IAD. Recommend continue: Reposition patient side to side only every two hours with pillow support, and off-load heels and pressure areas with pillows for pressure re-distribution. Perform skin care and monitor skin integrity q shift. Use moisture barrier cream on buttocks, Eri, G-Tube eri-site, and other moisture susceptible areas qid and PRN for soiling. Maintain patient on a low air-loss mattress. Skin Assessment: 1) Right Dorsal Foot: Skin tear. 100% pink tissue. No odor, no drainage. Recommend continue: Cleanse site with normal Saline. Pat dry. Put SurePrep onto eri-tear. Apply oil emulsion dressing to tear, followed by non-adherent pad. Wrap with clif wrap. Perform tear care daily, and as needed for dressing soling or dislodgment. Will continue to follow as a Broderick.
--- NOTE | 2017-01-31 11:30 | NUR ---
WOUND CARE Skin tear to anterior right foot cleansed with normal saline, oil emulsion dressing placed over site and held in place with foam dressing per [employer] teacher's recommendations, pt tolerated well.
--- NOTE | 2017-01-31 12:00 | NUR ---
ROUNDS/ANXIETY Pt appeared anxious, elevated heart rate 102 and resp 24, withdraws to touch and very sweaty. SAO2 97%, Temp 97.8 F. Pt given Ativan as ordered. Pt's gown changed and pt repositioned with pillow support and heels off-loaded. All precautions remain in place.
[2017-01-31] MEDS: NACL 0.9% 1,000 ML IV SCH ×2 (12:30→19:29)
--- NOTE | 2017-01-31 13:05 | NUR ---
ROUNDS Pt now resting quietly quietly, heart rate 95, resp rate 18, no further signs of anxiety or agitation.
[2017-01-31] MEDS: ALBUTEROL SULFATE 0.083% 2.5 MG/3 ML VIAL.NEB INH SCH ×3 (13:17→20:11)
--- NOTE | 2017-01-31 15:45 | NUR ---
ROUNDS Pt resting quietly in bed with no s/s resp distress, no s/s seizure activity, no s/s pain or discomfort. Pt repositioned with pillow support and heels off-loaded with a pillow between his knees for skin care. All precautions remain in place.
--- NOTE | 2017-01-31 18:36 | NUR ---
MIDLINE DRESSING CHANGED. Midline dressing changed using sterile technique. dressing changed due to dressing coming off-pt very sweaty at times. pt tolerated it well.
--- NOTE | 2017-01-31 19:05 | NUR ---
CLOSING NOTE P t resting quietly in bed with eyes closed, no s/s resp distress, no s/s pain or discomfort, no s/s seizure activity. Isolation precautions maintained throughout shift. Aspiration, skin and safety precautions remain in place.
--- NOTE | 2017-01-31 20:00 | NUR ---
Initial note A/O x 1, no SOB, no chest pain, no painful facial expression. Skin warm to touch, Midline at R upperarm, free of infection or infiltration. Currently on NS at 50 ml/hr. Diminished breath sounds all lobes and active bowel sounds. Trach in place, dressin clean and dry. GT site free of infection, 25 ml residual noted. GT dressing clean and dry. Dressing at R foot. Coccyx redness, barrier cream applied. F/C in place. Patient in Contact isolation. Call light within reach, will continue to monitor patient.
[2017-01-31] MEDS: SENNOSIDES 8.6 MG TABLET GT SCH (21:52)
[2017-01-31] MEDS: ENOXAPARIN SODIUM 40 MG/0.4 ML SYRINGE SUBCUT SCH (21:53)
--- NOTE | 2017-01-31 22:00 | NUR ---
Round A/O x 1, no SOB, no chest pain, no painful facial expression. Skin warm to touch, Midline at R upperarm, free of infection or infiltration. Currently on NS at 50 ml/hr. Diminished breath sounds all lobes and active bowel sounds. Trach in place, dressing clean and dry. GT site free of infection, d. GT dressing clean and dry. Patient is receiving Isosource at 54 ml/hr, 30 ml residual note Dressing at R foot, clean and dry. Coccyx redness, barrier cream applied. F/C in place. Patient in Contact isolation. Call light within reach, will continue to monitor patient.
[2017-02-01] VITALS (15 sets, daily range): BP systolic 109–140; BP diastolic 65–85; PULSE 61–128; RESP 14–22; TEMP 97.7–98.3; O2SAT 98–100
--- NOTE | 2017-02-01 | NUR ---
Round A/O x 1, no respiratory distress, no chest pain, no painful facial expression. Skin warm to touch, Midline at R upperarm, free of infection or infiltration. Currently on NS at 50 ml/hr. Diminished breath sounds all lobes and active bowel sounds. Trach in place, dressing clean and dry. GT site free of infection, d. GT dressing clean and dry. Patient is receiving Isosource at 54 ml/hr, 15 ml residual note Dressing at R foot, clean and dry. Coccyx redness, barrier cream applied. F/C in place. Clear yellow in the collecting bag. Patient in Contact isolation. Call light within reach, will continue to monitor patient.
[2017-02-01] MEDS: ALBUTEROL SULFATE 0.083% 2.5 MG/3 ML VIAL.NEB INH SCH ×4 (01:06→19:52)
--- NOTE | 2017-02-01 02:15 | NUR ---
Round A/O x 1, patient is sleeping, no painful facial expression. Skin warm to touch, Midline at R upperarm, free of infection or infiltration. Continue on NS at 50 ml/hr. Trach in place, dressing clean and dry. GT site free of infection, GT dressing clean and dry. Patient is receiving Isosource at 54 ml/hr, 10 ml residual note Dressing at R foot, clean and dry. Coccyx redness, barrier cream applied. F/C in place. Clear yellow in the collecting bag. Patient in Contact isolation. Call light within reach, will continue to monitor patient.
--- NOTE | 2017-02-01 04:00 | NUR ---
Round A/O x 1, patient is sleeping/resting in bed. Skin warm to touch, Midline at R upperarm, free of infection or infiltration. Continue on NS at 50 ml/hr. Trach in place, dressing clean and dry. GT site free of infection, GT dressing clean and dry. Patient is receiving Isosource at 54 ml/hr, 20 ml residual note. Dressing at R foot, clean and dry. Coccyx redness, barrier cream applied. F/C in place. Clear yellow in the collecting bag. Patient in Contact isolation for VRE-urine. Call light within reach, will continue to monitor patient.
--- NOTE | 2017-02-01 06:00 | NUR ---
Round A/O x 1, patient is sleeping/resting in bed. Skin warm to touch, Midline at R upperarm, free of infection or infiltration. Currently on NS at 50 ml/hr. Trach in place, dressing clean and dry. GT site free of infection, GT dressing clean and dry. Patient is receiving Isosource at 54 ml/hr, 10 ml residual note. Dressing at R foot, clean and dry. Coccyx redness, barrier cream applied. F/C in place. Clear yellow in the collecting bag. Patient in Contact isolation for VRE-urine. Call light within reach, will continue to monitor patient.
[2017-02-01] MEDS: LORazepam 2 MG/ML VIAL IVP PRN ×3 (06:31→13:52)
[2017-02-01 06:35] LABS: BASOPHILS # (AUTO) 0.1 K/uL (0.0-0.2); BASOPHILS % (AUTO) 0.8 % (0.0-2.0); EOSINOPHILS # (AUTO) 0.2 K/uL (0.0-0.4); EOSINOPHILS % (AUTO) 2.4 % (0.0-4.0); HEMATOCRIT 37.3 % (36-54); HEMOGLOBIN 12.2 g/dL (14.0-18.0); LYMPHOCYTES % (AUTO) 36.3 % (20.5-51.5); MEAN CORPUSCULAR HEMOGLOBIN 29 pg (27-31); MEAN CORPUSCULAR HGB CONC 33 % (32-36); MEAN CORPUSCULAR VOLUME 90 fL (79.0-98.0); MONOCYTES # (AUTO) 1.2 K/uL (0.0-1.0); MONOCYTES % (AUTO) 14.9 % (1.7-9.3); NEUTROPHILS # (AUTO) 3.7 K/uL (1.8-7.7); NEUTROPHILS % (AUTO) 45.6 % (40.0-70.0); PLATELET COUNT (AUTO) 341 K/uL (130-430); RED BLOOD CELL COUNT(AUTO) 4.13 MIL/uL (4.2-6.2); RED CELL DISTRIBUTION WIDTH 13.8 % (9.0-15.0); WHITE BLOOD COUNT (AUTO) 8.2 K/uL (4.8-10.8)
[2017-02-01 07:13] LABS: CALCIUM 9.3 mg/dL (8.4-11.0); CREATININE 0.68 mg/dL (0.55-1.30); POTASSIUM 4.4 mmol/L (3.5-5.1)
--- NOTE | 2017-02-01 07:20 | NUR ---
Initial notes: pt on bed awake and alert. non verbal. on cuffed trach Tbar @4l. no distress noted. received report at bedside.
--- NOTE | 2017-02-01 08:00 | NUR ---
RT NOTES Despite breathing tx and deep tracheal sxn, pt. remains tachypneic, tachycardic and diaphoretic. Placed pt. back on the vent with same settings: AC 10 500 40% , MAXIME Carter at bedside, aware of pt's condition.
[2017-02-01] MEDS: levETIRAcetam 500 MG TABLET GT SCH (09:27)
[2017-02-01] MEDS: CEFEPIME 1 GM in D5W 50 ML IV SCH (09:27)
[2017-02-01] MEDS: METOPROLOL TARTRATE 25 MG TABLET GT SCH (09:28)
[2017-02-01] MEDS: LINEZOLID 300 ML IV SCH (09:30)
--- NOTE | 2017-02-01 09:30 | NUR ---
rounds: pt's gown wet due to diaphoresis. cleaned and changed. repositioned for comfort.
[2017-02-01] MEDS: CHLORHEXIDINE GLUCONATE 15 ML/DOSE, 480 ML MM SCH (09:46)
[2017-02-01] MEDS: VALPROIC ACID ORAL SYRUP 250 MG/5 ML UDC GT SCH (09:47)
[2017-02-01] MEDS ORDERED: FUROSEMIDE 20 MG/2 ML VIAL IVP ONE (10:00)
--- NOTE | 2017-02-01 11:39 | NUR ---
DC PLANNING: ACCEPTED AT [facility] ROOM 109 B. BED AVAILABLE AFTER 1900 , PLS GIVE REPORT TO THE RN PORT SURVEYOR TEL# [phone]. Addendum: 02/01/17 at 1359 by Alexus Moe RN ARRANGED AMBULANCE W/ RT W/ JOSE BYRNESE TEL# , INTELLIGENCE AGENT AT 1999. PAULINA SWARTZ INFORMED, PACKET AT THE NURSE'S STATION.
--- NOTE | 2017-02-01 14:00 | NUR ---
Rounds: patient changed gown due to diaphoresis. He was agitated and ativan given to calm him down.
--- NOTE | 2017-02-01 16:00 | NUR ---
rounds: pt on bed sleeping. no distress noted.
--- NOTE | 2017-02-01 18:45 | NUR ---
Meena: Report given to Lucien ortiz [facility] for the transfer of pt danae.
--- NOTE | 2017-02-01 19:30 | NUR ---
closing notes: pt on bed sleeping. stable. on mech vent TV 490 F1O2 40%. PICC line changed dressing and intact. gtube intact. report given at bedside.
--- NOTE | 2017-02-01 20:00 | NUR ---
Initial Notes Received patient laying in bed, awake, confused, nonverbal. Patient appears in no apparent distress or pain. Vital signs stable. Breathing even and unlabored on mechanical vent, settings AC 10, TV 490, FiO2 40%, PEEP 0. Gutiérrez draining yellow urine to gravity. G-tube noted, flushed and clamped in preparation for transfer. Right upper arm midline noted, dressing clean/dry/intact. Patient repositioned for comfort. Call light in hand, fall precautions in place. Will continue to monitor for changes and safety. Patient to be transferred to [place] per prior nurse. Report called to [place] by prior nurse.
--- NOTE | 2017-02-01 20:15 | NUR ---
Ambulance Pickup [facility] ambulance personnel on unit to transport patient to [place]. Patient in no acute distress or pain. Vital signs stable. All personal belongings and discharge paperwork given to ambulance personnel.
[2017-02-01] MEDS ORDERED: levETIRAcetam 500 MG TABLET GT SCH (21:00)
== END 2017-02-01 22:30 | DRG 871 ==
LOC: SED 01:35 → SIC 03:54 → STU 20:13
PROVIDERS: ADMIT Family Medicine; ATTEND Family Medicine
PROC: 5A1945Z Respiratory Ventilation, 24-96 Consecutive Hours (ICD-10-PCS; principal; 2017-01-27)
PROC: 05H533Z Insertion of Infusion Device into Right Subclavian Vein, Percutaneous Approach (ICD-10-PCS; 2017-01-27)
PROC: B546ZZA Ultrasonography of Right Subclavian Vein, Guidance (ICD-10-PCS; 2017-01-27)
DX: A41.9 Sepsis, unspecified organism (principal); J69.0 Pneumonitis due to inhalation of food and vomit; J96.10 Chronic respiratory failure, unspecified whether with hypoxia or hypercapnia; E87.1 Hypo-osmolality and hyponatremia; N39.0 Urinary tract infection, site not specified; G40.901 Epilepsy, unspecified, not intractable, with status epilepticus; D64.9 Anemia, unspecified; I10 Essential (primary) hypertension; K21.9 Gastro-esophageal reflux disease without esophagitis; B95.2 Enterococcus as the cause of diseases classified elsewhere; Z16.21 Resistance to vancomycin; Z87.820 Personal history of traumatic brain injury; Z78.9 Other specified health status; Z93.0 Tracheostomy status; Z93.1 Gastrostomy status; Z79.899 Other long term (current) drug therapy
CPT/HCPCS: 36415; 36600; 71010; 80048; 80053; 80164-TC; 81000-TC; 82542; 82803-TC; 83605; 83735-TC; 84484; 85007; 85025; 85027; 85610-TC; 85730-TC; 87040-TC; 87070-TC; 87081; 87086; 87186-TC; 87205-TC; 93005; 94002; 94003; 94640; 94760; 99285; C1751; J0692; J1650; J1940; J2020; J2060; J7030; J7042; J7060

== ENCOUNTER 2017-03-26 20:59 | Inpatient (IN) | payer OTHER, MEDICAID ==
[~2017-03-26] VITALS: Ht 177.8 cm; Wt 87.1 kg
[~2017-03-26 20:59] MED LIST changes: -ATII2 IM; +CHLO473M5 MM; -COLL100 GT; -COLL100 PO; -DEPAK250 GT; -DIPH-179 PO; -IPRA0.2S6 INH; -LACT1CAP7 GT; -LEVA1.25 INH; -LEVA1.25 NEB; -LEVE100S GT; -LEVE500T13 PO; -LORA-259 GT; -LORA2TAB IM; -MULT9LIQ GT; -PATANOL OP; -PERIDEX MM; -PHEN95CM GT; -PIPE3.379 IV; -REGL10 GT; -UTI-Stat Liquid GT; -VALPROIC ACID GT; -VIT500LI GT; -ZINC220T GT; -[UNRECOGNIZED DRUG - OTHER] GT
[2017-03-26 21:04] VITALS: BP_SYST 116
[2017-03-26] MEDS ORDERED: NACL 0.9% 1,000 ML IV ONE (21:29)
[2017-03-26] MEDS ORDERED: LACT1TAB15 GT (21:32)
[2017-03-26] MEDS ORDERED: ATII2 IM (21:32)
[2017-03-26 22:16] LABS: HEMATOCRIT 45.9 % (36-54); HEMOGLOBIN 15.1 g/dL (14.0-18.0); MEAN CORPUSCULAR HEMOGLOBIN 28 pg (27-31); MEAN CORPUSCULAR HGB CONC 33 % (32-36); MEAN CORPUSCULAR VOLUME 86 fL (79.0-98.0); PLATELET COUNT (AUTO) 461 K/uL (130-430); RED BLOOD CELL COUNT(AUTO) 5.32 MIL/uL (4.2-6.2); RED CELL DISTRIBUTION WIDTH 13.3 % (9.0-15.0)
[2017-03-26 22:28] LABS: CALCIUM 8.9 mg/dL (8.4-11.0); CREATININE 1.39 mg/dL (0.55-1.30)
[2017-03-26] MEDS ORDERED: NS 250 ML IV ONE (22:30)
[2017-03-26 22:32] LABS: ALBUMIN 2.8 g/dL (3.4-4.8); TOTAL BILIRUBIN 0.3 mg/dL (0.0-1.0); TOTAL PROTEIN, SERUM 7.6 g/dL (6.4-8.3)
[2017-03-26 22:49] LABS: POTASSIUM 2.7 mmol/L (3.5-5.1)
[2017-03-26 22:54] LABS: BAND % (MANUAL) 3 % (0-6); LYMPHOCYTES % (MANUAL) 6 % (20-46); MONOCYTES % (MANUAL) 13 % (0-11)
[2017-03-26 22:55] LABS: BASOPHILS % (MANUAL) 0 % (0-2); EOSINOPHILS % (MANUAL) 0 % (0-7)
[2017-03-26] MEDS ORDERED: KCL 20 mEq in 100 mL (PREMIX) 100 ML IV ONE (23:00)
[2017-03-26] MEDS ORDERED: NS 500 ML IV ONE (23:45)
[2017-03-27] VITALS (33 sets, daily range): BP systolic 91–140
[2017-03-27] MEDS ORDERED: ACETAMINOPHEN 650 MG SUPP.RECT RC ONE (00:30)
[2017-03-27] MEDS ORDERED: NACL 0.9% 1,000 ML IV ONE (00:45)
[2017-03-27] MEDS ORDERED: LEVOFLOXACIN 500 MG/D5W 100 ML IV ONE (00:45)
[2017-03-27] MEDS ORDERED: LevALBUTEROL HCL 1.25 MG/0.5 ML *CONC.* VIAL.NEB (XOPENEX CONC.) INH PRN (01:00)
[2017-03-27] MEDS ORDERED: VANCOMYCIN HCL 1,000 MG in NS 250 ML IV ONE (01:00)
[2017-03-27] MEDS ORDERED: ONDANSETRON HCL 4 MG/2 ML VIAL IVP PRN (01:00)
[2017-03-27] MEDS ORDERED: VANCOMYCIN HCL 1 GM/NS PREMIX 250 ML IV ONE (02:00)
[2017-03-27] MEDS ORDERED: PANTOPRAZOLE SODIUM 40 MG/VIAL (PROTONIX) ONE (03:04)
[2017-03-27] MEDS: LevALBUTEROL HCL 1.25 MG/0.5 ML *CONC.* VIAL.NEB (XOPENEX CONC.) INH SCH ×5 (03:04→20:10)
[2017-03-27] MEDS ORDERED: KCL 40 mEq in 100 mL (PREMIX) 100 ML IV ONE (03:06)
[2017-03-27] MEDS: POTASSIUM CHLORIDE IV SCH ×4 (03:12→23:08)
[2017-03-27] MEDS: D5NS IV SCH ×4 (03:12→23:08)
[2017-03-27] MEDS: PANTOPRAZOLE SODIUM 40 MG/VIAL (PROTONIX) IVP SCH ×3 (03:13→22:04)
[2017-03-27] MEDS ORDERED: VANCOMYCIN HCL 1000 MG/VIAL IV ONE (03:32)
[2017-03-27] MEDS ORDERED: PIPERACILLIN/TAZOBACTAM 3.375 GM/VIAL (ZOSYN) IV ONE (03:33)
[2017-03-27] MEDS: PIPERACILLIN/TAZO 3.375 GM in NS 50 ML IV SCH ×4 (03:54→18:34)
[2017-03-27 06:37] LABS: BASOPHILS % (AUTO) 0.2 % (0.0-2.0); EOSINOPHILS % (AUTO) 0.1 % (0.0-4.0); HEMATOCRIT 41.1 % (36-54); HEMOGLOBIN 13.4 g/dL (14.0-18.0); LYMPHOCYTES # (AUTO) 1.5 K/uL (1.0-5.5); LYMPHOCYTES % (AUTO) 7.7 % (20.5-51.5); MEAN CORPUSCULAR HEMOGLOBIN 28 pg (27-31); MEAN CORPUSCULAR HGB CONC 33 % (32-36); MEAN CORPUSCULAR VOLUME 87 fL (79.0-98.0); MONOCYTES # (AUTO) 3.7 K/uL (0.0-1.0); MONOCYTES % (AUTO) 18.6 % (1.7-9.3); NEUTROPHILS # (AUTO) 14.8 K/uL (1.8-7.7); NEUTROPHILS % (AUTO) 73.4 % (40.0-70.0); PLATELET COUNT (AUTO) 464 K/uL (130-430); RED BLOOD CELL COUNT(AUTO) 4.72 MIL/uL (4.2-6.2); RED CELL DISTRIBUTION WIDTH 13.5 % (9.0-15.0)
[2017-03-27 06:55] LABS: ALBUMIN 2.3 g/dL (3.4-4.8); CREATININE 1.46 mg/dL (0.55-1.30); TOTAL BILIRUBIN 0.5 mg/dL (0.0-1.0); TOTAL PROTEIN, SERUM 6.7 g/dL (6.4-8.3)
[2017-03-27 07:08] LABS: POTASSIUM 2.8 mmol/L (3.5-5.1)
[2017-03-27] MEDS ORDERED: MORPHINE 2 MG/ML INJ. SYRINGE IVP PRN (08:30)
[2017-03-27] MEDS: levETIRAcetam 500 MG in NS 100 ML IV SCH ×2 (09:37→22:04)
[2017-03-27] MEDS: POTASSIUM CHLORIDE 40 MEQ in 0.45% NS 250 ML IV SCH ×2 (10:44→15:34)
[2017-03-27] MEDS ORDERED: VANCOMYCIN HCL 1,000 MG in NS 250 ML IV SCH (13:00)
[2017-03-27] MEDS: metroNIDAZOLE 250 mg/NS 50 ML IV SCH ×2 (16:25→23:08)
[2017-03-27 18:59] LABS: BILIRUBIN,URINE NEGATIVE (NEGATIVE); BLOOD, URINE 2+ (NEGATIVE); CLARITY/URINE HAZY (CLEAR); COLOR,URINE YELLOW (YELLOW); GLUCOSE,URINE NEGATIVE (NEGATIVE); KETONES,URINE NEGATIVE (NEGATIVE); LEUKOCYTE ESTERASE ,URINE TRACE (NEGATIVE); NITRITE, URINE NEGATIVE (NEGATIVE); PH,URINE 5.5 (5.0-8.0); PROTEIN URINE 1+ (NEGATIVE); UROBILINOGEN,URINE 0.2 (0.2-1.0)
[2017-03-27 19:14] LABS: BACTERIA,URINE MODERATE /HPF (None Seen)
[2017-03-27 19:15] LABS: YEAST,URINE Moderate /HPF (None Seen)
[2017-03-27 19:16] LABS: COARSE GRANULAR CASTS,URINE 0-10 /LPF (None Seen); MUCUS,URINE 1+ /LPF (None Seen)
[2017-03-28] VITALS (34 sets, daily range): BP systolic 101–155
[2017-03-28] MEDS: LevALBUTEROL HCL 1.25 MG/0.5 ML *CONC.* VIAL.NEB (XOPENEX CONC.) INH SCH ×7 (00:42→23:00)
[2017-03-28] MEDS: PIPERACILLIN/TAZO 3.375 GM in NS 50 ML IV SCH ×3 (01:13→11:55)
[2017-03-28] MEDS: POTASSIUM CHLORIDE IV SCH ×4 (04:04→22:21)
[2017-03-28] MEDS: D5NS IV SCH ×4 (04:04→22:21)
[2017-03-28] MEDS: metroNIDAZOLE 250 mg/NS 50 ML IV SCH ×3 (06:21→22:22)
[2017-03-28 06:29] LABS: HEMATOCRIT 32.9 % (36-54); HEMOGLOBIN 10.6 g/dL (14.0-18.0); MEAN CORPUSCULAR HEMOGLOBIN 28 pg (27-31); MEAN CORPUSCULAR HGB CONC 32 % (32-36); MEAN CORPUSCULAR VOLUME 88 fL (79.0-98.0); PLATELET COUNT (AUTO) 417 K/uL (130-430); RED BLOOD CELL COUNT(AUTO) 3.75 MIL/uL (4.2-6.2); RED CELL DISTRIBUTION WIDTH 13.3 % (9.0-15.0); WHITE BLOOD COUNT (AUTO) 12.6 K/uL (4.8-10.8)
[2017-03-28 06:32] LABS: CALCIUM 7.7 mg/dL (8.4-11.0); CREATININE 0.98 mg/dL (0.55-1.30); PHOSPHORUS 2.2 mg/dL (2.7-4.5); POTASSIUM 3.8 mmol/L (3.5-5.1)
[2017-03-28 07:54] LABS: BASOPHILS % (MANUAL) 0 % (0-2); EOSINOPHILS % (MANUAL) 0 % (0-7); LYMPHOCYTES % (MANUAL) 34 % (20-46); MONOCYTES % (MANUAL) 7 % (0-11)
[2017-03-28] MEDS: PANTOPRAZOLE SODIUM 40 MG/VIAL (PROTONIX) IVP SCH ×2 (08:56→21:36)
[2017-03-28] MEDS: levETIRAcetam 500 MG in NS 100 ML IV SCH ×2 (08:57→20:24)
[2017-03-28] MEDS ORDERED: MAGNESIUM CITRATE 300 ML ORAL SOLUTION GT ONE (18:00)
[2017-03-28] MEDS: MINERAL OIL 30 ML UDC GT SCH (19:00)
[2017-03-28] MEDS: CEFEPIME 1 GM in D5W 50 ML IV SCH (21:36)
[2017-03-29] VITALS (33 sets, daily range): BP systolic 89–155
[2017-03-29] MEDS ORDERED: MINERAL OIL 30 ML UDC ONE ×2 (00:08→21:17)
[2017-03-29] MEDS: MINERAL OIL 30 ML UDC GT SCH ×4 (00:21→17:38)
[2017-03-29] MEDS: LevALBUTEROL HCL 1.25 MG/0.5 ML *CONC.* VIAL.NEB (XOPENEX CONC.) INH SCH ×6 (04:01→23:14)
[2017-03-29] MEDS: POTASSIUM CHLORIDE IV SCH ×3 (05:37→19:16)
[2017-03-29] MEDS: metroNIDAZOLE 250 mg/NS 50 ML IV SCH ×3 (05:37→22:29)
[2017-03-29] MEDS: D5NS IV SCH ×3 (05:37→19:16)
[2017-03-29 06:51] LABS: BASOPHILS # (AUTO) 0.1 K/uL (0.0-0.2); BASOPHILS % (AUTO) 0.9 % (0.0-2.0); EOSINOPHILS # (AUTO) 0.2 K/uL (0.0-0.4); EOSINOPHILS % (AUTO) 1.5 % (0.0-4.0); HEMATOCRIT 29.6 % (36-54); HEMOGLOBIN 9.6 g/dL (14.0-18.0); LYMPHOCYTES # (AUTO) 3.7 K/uL (1.0-5.5); LYMPHOCYTES % (AUTO) 35.3 % (20.5-51.5); MEAN CORPUSCULAR HEMOGLOBIN 29 pg (27-31); MEAN CORPUSCULAR HGB CONC 33 % (32-36); MEAN CORPUSCULAR VOLUME 88 fL (79.0-98.0); MONOCYTES # (AUTO) 1.6 K/uL (0.0-1.0); MONOCYTES % (AUTO) 15.7 % (1.7-9.3); NEUTROPHILS # (AUTO) 4.9 K/uL (1.8-7.7); NEUTROPHILS % (AUTO) 46.6 % (40.0-70.0); PLATELET COUNT (AUTO) 421 K/uL (130-430); RED BLOOD CELL COUNT(AUTO) 3.37 MIL/uL (4.2-6.2); RED CELL DISTRIBUTION WIDTH 13.5 % (9.0-15.0); WHITE BLOOD COUNT (AUTO) 10.5 K/uL (4.8-10.8)
[2017-03-29 07:16] LABS: CALCIUM 7.9 mg/dL (8.4-11.0); CREATININE 0.66 mg/dL (0.55-1.30); PHOSPHORUS 1.7 mg/dL (2.7-4.5); POTASSIUM 3.7 mmol/L (3.5-5.1)
[2017-03-29] MEDS: PANTOPRAZOLE SODIUM 40 MG/VIAL (PROTONIX) IVP SCH ×2 (08:44→20:21)
[2017-03-29] MEDS: levETIRAcetam 500 MG in NS 100 ML IV SCH ×2 (08:44→20:18)
[2017-03-29] MEDS: CEFEPIME 1 GM in D5W 50 ML IV SCH ×2 (09:26→21:31)
[2017-03-29] MEDS ORDERED: K PHOS 15 MM in NS 250 ML IV ONE (10:00)
[2017-03-30] VITALS (26 sets, daily range): BP systolic 93–168
[2017-03-30] MEDS: MINERAL OIL 30 ML UDC GT SCH ×5 (00:17→23:29)
[2017-03-30] MEDS: LORazepam 2 MG/ML VIAL IVP PRN ×2 (00:18→23:29)
[2017-03-30] MEDS: D5NS IV SCH ×4 (02:14→22:32)
[2017-03-30] MEDS: POTASSIUM CHLORIDE IV SCH ×4 (02:14→22:32)
[2017-03-30] MEDS: LevALBUTEROL HCL 1.25 MG/0.5 ML *CONC.* VIAL.NEB (XOPENEX CONC.) INH SCH ×6 (04:05→23:15)
[2017-03-30] MEDS: metroNIDAZOLE 250 mg/NS 50 ML IV SCH ×3 (05:40→22:52)
[2017-03-30] MEDS: PANTOPRAZOLE SODIUM 40 MG/VIAL (PROTONIX) IVP SCH ×2 (08:05→21:18)
[2017-03-30] MEDS: levETIRAcetam 500 MG in NS 100 ML IV SCH ×2 (08:06→21:19)
[2017-03-30 08:11] LABS: BASOPHILS # (AUTO) 0.1 K/uL (0.0-0.2); BASOPHILS % (AUTO) 0.4 % (0.0-2.0); EOSINOPHILS # (AUTO) 0.3 K/uL (0.0-0.4); EOSINOPHILS % (AUTO) 2.5 % (0.0-4.0); HEMATOCRIT 31.1 % (36-54); HEMOGLOBIN 10.2 g/dL (14.0-18.0); LYMPHOCYTES # (AUTO) 4.1 K/uL (1.0-5.5); LYMPHOCYTES % (AUTO) 32.1 % (20.5-51.5); MEAN CORPUSCULAR HEMOGLOBIN 29 pg (27-31); MEAN CORPUSCULAR HGB CONC 33 % (32-36); MEAN CORPUSCULAR VOLUME 89 fL (79.0-98.0); MONOCYTES # (AUTO) 1.4 K/uL (0.0-1.0); MONOCYTES % (AUTO) 11.3 % (1.7-9.3); NEUTROPHILS # (AUTO) 6.8 K/uL (1.8-7.7); NEUTROPHILS % (AUTO) 53.7 % (40.0-70.0); PLATELET COUNT (AUTO) 475 K/uL (130-430); RED CELL DISTRIBUTION WIDTH 13.6 % (9.0-15.0); WHITE BLOOD COUNT (AUTO) 12.7 K/uL (4.8-10.8)
[2017-03-30 08:13] LABS: CALCIUM 8.4 mg/dL (8.4-11.0); CREATININE 0.64 mg/dL (0.55-1.30); POTASSIUM 4.3 mmol/L (3.5-5.1)
[2017-03-30] MEDS: CEFEPIME 1 GM in D5W 50 ML IV SCH ×2 (09:11→22:02)
[2017-03-30] MEDS: COLISTIMETHATE SODIUM 150 MG VIAL INH SCH (21:10)
[2017-03-31] MEDS ORDERED: ACETAMINOPHEN 650 MG/20.3 ML UDC PO PRN (03:00)
[2017-03-31] MEDS: LevALBUTEROL HCL 1.25 MG/0.5 ML *CONC.* VIAL.NEB (XOPENEX CONC.) INH SCH ×6 (04:06→23:57)
[2017-03-31 04:33] VITALS: BP_SYST 101
[2017-03-31] MEDS: MINERAL OIL 30 ML UDC GT SCH ×4 (05:29→23:36)
[2017-03-31] MEDS: POTASSIUM CHLORIDE IV SCH (05:30)
[2017-03-31] MEDS: metroNIDAZOLE 250 mg/NS 50 ML IV SCH ×3 (05:30→22:48)
[2017-03-31] MEDS: D5NS IV SCH (05:30)
[2017-03-31 07:28] LABS: BASOPHILS % (AUTO) 0.3 % (0.0-2.0); EOSINOPHILS # (AUTO) 0.3 K/uL (0.0-0.4); EOSINOPHILS % (AUTO) 2.2 % (0.0-4.0); HEMATOCRIT 33.7 % (36-54); LYMPHOCYTES # (AUTO) 2.7 K/uL (1.0-5.5); LYMPHOCYTES % (AUTO) 17.4 % (20.5-51.5); MEAN CORPUSCULAR HEMOGLOBIN 29 pg (27-31); MEAN CORPUSCULAR HGB CONC 33 % (32-36); MEAN CORPUSCULAR VOLUME 89 fL (79.0-98.0); MONOCYTES # (AUTO) 1.4 K/uL (0.0-1.0); MONOCYTES % (AUTO) 9.3 % (1.7-9.3); NEUTROPHILS # (AUTO) 11.2 K/uL (1.8-7.7); NEUTROPHILS % (AUTO) 70.8 % (40.0-70.0); PLATELET COUNT (AUTO) 496 K/uL (130-430); RED BLOOD CELL COUNT(AUTO) 3.79 MIL/uL (4.2-6.2); RED CELL DISTRIBUTION WIDTH 13.6 % (9.0-15.0); WHITE BLOOD COUNT (AUTO) 15.6 K/uL (4.8-10.8)
[2017-03-31 07:47] LABS: CALCIUM 8.7 mg/dL (8.4-11.0); CREATININE 0.8 mg/dL (0.55-1.30); POTASSIUM 4.4 mmol/L (3.5-5.1)
[2017-03-31 08:00] VITALS: BP_SYST 149
[2017-03-31] MEDS: PANTOPRAZOLE SODIUM 40 MG/VIAL (PROTONIX) IVP SCH ×2 (09:19→21:00)
[2017-03-31] MEDS: levETIRAcetam 500 MG in NS 100 ML IV SCH ×2 (09:19→21:00)
[2017-03-31] MEDS: CEFEPIME 1 GM in D5W 50 ML IV SCH ×2 (09:57→21:49)
[2017-03-31] MEDS: LORazepam 2 MG/ML VIAL IVP PRN (10:01)
[2017-03-31 12:20] VITALS: BP_SYST 105
[2017-03-31] MEDS: NACL 0.9% 1,000 ML IV SCH ×2 (14:24→19:45)
[2017-03-31] MEDS: COLISTIMETHATE SODIUM 150 MG VIAL INH SCH ×2 (14:33→21:00)
[2017-03-31 17:12] VITALS: BP_SYST 155
[2017-03-31 19:50] VITALS: BP_SYST 126
[2017-03-31 23:37] VITALS: BP_SYST 113
[2017-04-01] MEDS: LevALBUTEROL HCL 1.25 MG/0.5 ML *CONC.* VIAL.NEB (XOPENEX CONC.) INH SCH ×5 (04:09→19:52)
[2017-04-01 04:11] VITALS: BP_SYST 144
[2017-04-01] MEDS: metroNIDAZOLE 250 mg/NS 50 ML IV SCH ×3 (05:50→21:29)
[2017-04-01] MEDS: NACL 0.9% 1,000 ML IV SCH (05:50)
[2017-04-01] MEDS: MINERAL OIL 30 ML UDC GT SCH ×3 (05:50→18:09)
[2017-04-01 06:29] LABS: CALCIUM 8.6 mg/dL (8.4-11.0); CREATININE 0.76 mg/dL (0.55-1.30)
[2017-04-01 06:45] LABS: BASOPHILS # (AUTO) 0.1 K/uL (0.0-0.2); BASOPHILS % (AUTO) 0.4 % (0.0-2.0); EOSINOPHILS # (AUTO) 0.6 K/uL (0.0-0.4); EOSINOPHILS % (AUTO) 4.6 % (0.0-4.0); HEMATOCRIT 31.6 % (36-54); HEMOGLOBIN 10.3 g/dL (14.0-18.0); LYMPHOCYTES # (AUTO) 2.4 K/uL (1.0-5.5); LYMPHOCYTES % (AUTO) 17.8 % (20.5-51.5); MEAN CORPUSCULAR HEMOGLOBIN 29 pg (27-31); MEAN CORPUSCULAR HGB CONC 33 % (32-36); MEAN CORPUSCULAR VOLUME 89 fL (79.0-98.0); MONOCYTES # (AUTO) 1.2 K/uL (0.0-1.0); MONOCYTES % (AUTO) 8.8 % (1.7-9.3); NEUTROPHILS # (AUTO) 9.3 K/uL (1.8-7.7); NEUTROPHILS % (AUTO) 68.4 % (40.0-70.0); PLATELET COUNT (AUTO) 501 K/uL (130-430); RED BLOOD CELL COUNT(AUTO) 3.55 MIL/uL (4.2-6.2); RED CELL DISTRIBUTION WIDTH 13.3 % (9.0-15.0); WHITE BLOOD COUNT (AUTO) 13.6 K/uL (4.8-10.8)
[2017-04-01 08:48] VITALS: BP_SYST 112
[2017-04-01] MEDS: COLISTIMETHATE SODIUM 150 MG VIAL INH SCH ×2 (09:06→21:31)
[2017-04-01] MEDS: levETIRAcetam 500 MG in NS 100 ML IV SCH ×2 (09:27→20:04)
[2017-04-01] MEDS: PANTOPRAZOLE SODIUM 40 MG/VIAL (PROTONIX) IVP SCH ×2 (09:28→20:40)
[2017-04-01] MEDS: CEFEPIME 1 GM in D5W 50 ML IV SCH ×2 (09:28→20:40)
[2017-04-01] MEDS ORDERED: NACL 0.9% 1,000 ML IV SCH (10:00)
[2017-04-01 12:37] VITALS: BP_SYST 107
[2017-04-01 16:05] VITALS: BP_SYST 110
[2017-04-01 19:50] VITALS: BP_SYST 124
== END 2017-04-01 22:40 | DRG 870 ==
LOC: SED 20:59 → SIC 03-27 01:00 → STU 03-30 16:19
PROVIDERS: ADMIT Family Medicine; ATTEND Family Medicine
PROC: 5A1955Z Respiratory Ventilation, Greater than 96 Consecutive Hours (ICD-10-PCS; principal; 2017-03-27)
DX: A41.9 Sepsis, unspecified organism (principal); E43 Unspecified severe protein-calorie malnutrition; J69.0 Pneumonitis due to inhalation of food and vomit; R65.21 Severe sepsis with septic shock; K92.2 Gastrointestinal hemorrhage, unspecified; K56.60 Unspecified intestinal obstruction; J96.10 Chronic respiratory failure, unspecified whether with hypoxia or hypercapnia; N39.0 Urinary tract infection, site not specified; E87.2 Acidosis; I42.9 Cardiomyopathy, unspecified; K56.7 Ileus, unspecified; N17.9 Acute kidney failure, unspecified; G40.909 Epilepsy, unspecified, not intractable, without status epilepticus; F03.90 Unspecified dementia, unspecified severity, without behavioral disturbance, psychotic disturbance, mood disturbance, and anxiety; G80.9 Cerebral palsy, unspecified; I12.9 Hypertensive chronic kidney disease with stage 1 through stage 4 chronic kidney disease, or unspecified chronic kidney disease; E11.22 Type 2 diabetes mellitus with diabetic chronic kidney disease; J44.9 Chronic obstructive pulmonary disease, unspecified; E87.6 Hypokalemia; M81.0 Age-related osteoporosis without current pathological fracture; N18.9 Chronic kidney disease, unspecified; N40.0 Benign prostatic hyperplasia without lower urinary tract symptoms; M47.9 Spondylosis, unspecified; B96.1 Klebsiella pneumoniae [K. pneumoniae] as the cause of diseases classified elsewhere; B96.5 Pseudomonas (aeruginosa) (mallei) (pseudomallei) as the cause of diseases classified elsewhere; Z78.9 Other specified health status; Z93.0 Tracheostomy status; Z93.1 Gastrostomy status; Z68.27 Body mass index [BMI] 27.0-27.9, adult; Z87.01 Personal history of pneumonia (recurrent); Z87.440 Personal history of urinary (tract) infections; Z87.820 Personal history of traumatic brain injury
CPT/HCPCS: 36415; 71010; 74000-TC; 74020-TC; 80048; 80053; 81000-TC; 83605; 83690-TC; 83735-TC; 84100-TC; 85007; 85025; 85027; 87040-TC; 87070-TC; 87081; 87186-TC; 87205-TC; 87230-TC; 94002; 94003; 94640; 94760; 96360; 99285; C9113; J0692; J0770; J1953; J1956; J2060; J2270; J2543; J3370; J3480; J3490; J7030; J7040; J7042; J7050; J7060

== ENCOUNTER 2017-06-27 17:26 | Inpatient (IN) | payer MEDICAID, OTHER ==
[~2017-06-27] VITALS: Ht 172.7 cm; Wt 85.9 kg
[2017-06-27 17:26] VITALS: BP_SYST 106
[~2017-06-27 17:26] MED LIST changes: +ATII2 IM; +LACT1TAB15 GT
[2017-06-27] MEDS ORDERED: ACETAMINOPHEN 120 MG SUPP.RECT RC ONE (17:45)
[2017-06-27 18:08] LABS: HEMATOCRIT 35.8 % (36-54); HEMOGLOBIN 11.6 g/dL (14.0-18.0); MEAN CORPUSCULAR HEMOGLOBIN 29 pg (27-31); MEAN CORPUSCULAR HGB CONC 33 % (32-36); MEAN CORPUSCULAR VOLUME 88 fL (79.0-98.0); PLATELET COUNT (AUTO) 291 K/uL (130-430); RED BLOOD CELL COUNT(AUTO) 4.06 MIL/uL (4.2-6.2); RED CELL DISTRIBUTION WIDTH 14.2 % (9.0-15.0); WHITE BLOOD COUNT (AUTO) 21.9 K/uL (4.8-10.8)
[2017-06-27 18:12] LABS: CALCIUM 8.7 mg/dL (8.4-11.0); CREATININE 0.6 mg/dL (0.55-1.30); POTASSIUM 3.9 mmol/L (3.5-5.1)
[2017-06-27 18:15] LABS: PROTHROMBIN TIME 11.1 SECS (9.5-12.5)
[2017-06-27 18:30] LABS: ALBUMIN 2.6 g/dL (3.4-4.8); PHOSPHORUS 3.1 mg/dL (2.7-4.5); TOTAL BILIRUBIN 0.4 mg/dL (0.0-1.0); TOTAL PROTEIN, SERUM 7.7 g/dL (6.4-8.3)
[2017-06-27 18:43] LABS: BAND % (MANUAL) 9 % (0-6); BASOPHILS % (MANUAL) 0 % (0-2); EOSINOPHILS % (MANUAL) 0 % (0-7); LYMPHOCYTES % (MANUAL) 8 % (20-46); MONOCYTES % (MANUAL) 16 % (0-11)
[2017-06-27] MEDS ORDERED: AZITHROMYCIN 100 MG/5 ML SUSPENSION PO ONE (19:00)
[2017-06-27] MEDS ORDERED: AZITHROMYCIN 100 MG/5 ML SUSPENSION JT ONE (19:00)
[2017-06-27] MEDS ORDERED: cefTRIAXone 2 GM VIAL ONE (19:24)
[2017-06-27] MEDS ORDERED: NACL 0.9% 1,000 ML IV ONE ×2 (19:45→23:45)
[2017-06-27] MEDS ORDERED: ALBU2TAB4 GT (19:50)
[2017-06-27] MEDS ORDERED: LANS30CA56 GT (19:52)
[2017-06-27] MEDS ORDERED: LEVE100S2 GT (19:53)
[2017-06-27] MEDS ORDERED: MAGN400O4 GT (19:56)
[2017-06-27] MEDS ORDERED: MULT-1089 GT (19:58)
[2017-06-27] MEDS ORDERED: CRAN1CAP6 GT (20:06)
[2017-06-27] MEDS ORDERED: AZITHROMYCIN 250 MG TABLET ONE (20:14)
[2017-06-27] MEDS ORDERED: MILK OF MAGNESIA 30 ML UDC GT PRN (21:00)
[2017-06-27] MEDS ORDERED: ACETAMINOPHEN 650 MG/20.3 ML UDC GT SCH (21:00)
[2017-06-27] MEDS ORDERED: ACETAMINOPHEN 650 MG/20.3 ML UDC GT PRN (21:00)
[2017-06-27] MEDS ORDERED: ALBUTEROL SULFATE 2 MG TABLET GT PRN (21:00)
[2017-06-27] MEDS ORDERED: MILK OF MAGNESIA 30 ML UDC PO PRN (21:00)
[2017-06-27] MEDS ORDERED: VALPROIC ACID ORAL SYRUP 250 MG/5 ML UDC GT SCH (21:00)
[2017-06-27] MEDS ORDERED: BISACODYL 10 MG/SUPPOSITORY RC PRN (21:00)
[2017-06-27] MEDS ORDERED: LORazepam 2 MG/ML VIAL IM PRN (21:00)
[2017-06-27] MEDS ORDERED: VANCOMYCIN HCL 1,250 MG in NS 250 ML IV ONE (21:30)
[2017-06-27 21:39] LABS: BILIRUBIN,URINE NEGATIVE (NEGATIVE); BLOOD, URINE 2+ (NEGATIVE); COLOR,URINE YELLOW (YELLOW); GLUCOSE,URINE NEGATIVE (NEGATIVE); KETONES,URINE NEGATIVE (NEGATIVE); LEUKOCYTE ESTERASE ,URINE 3+ (NEGATIVE); NITRITE, URINE NEGATIVE (NEGATIVE); PROTEIN URINE TRACE (NEGATIVE); UROBILINOGEN,URINE 0.2 (0.2-1.0)
[2017-06-27 21:48] LABS: CLARITY/URINE HAZY (CLEAR)
[2017-06-27 21:51] LABS: BACTERIA,URINE MODERATE /HPF (None Seen); MUCUS,URINE None Seen /LPF (None Seen); WBC,URINE 50-80 /HPF (0-3); YEAST,URINE Few /HPF (None Seen)
[2017-06-27 22:30] VITALS: BP_SYST 112
[2017-06-27] MEDS ORDERED: VANCOMYCIN HCL 1000 MG/VIAL IV ONE (22:57)
[2017-06-27] MEDS ORDERED: VANCOMYCIN HCL 500 MG/VIAL IV ONE (22:57)
[2017-06-27 23:00] VITALS: BP_SYST 112; BP_SYST 113
[2017-06-27] MEDS ORDERED: CEFEPIME 1 GM/VIAL (MAXIPIME) ONE (23:04)
[2017-06-27] MEDS: CEFEPIME 1 GM/DEXT-ISO-OSM 50 ML IV SCH (23:30)
[2017-06-27 23:38] VITALS: BP_SYST 120
[2017-06-27 23:44] VITALS: BP_SYST 99
[2017-06-27] MEDS ORDERED: NS 250 ML IV ONE (23:45)
[2017-06-28] VITALS (35 sets, daily range): BP systolic 78–125
[2017-06-28] MEDS: CHLORHEXIDINE GLUCONATE 15 ML/DOSE, 480 ML MM SCH ×3 (00:30→22:40)
[2017-06-28] MEDS: levETIRAcetam 500 MG TABLET GT SCH ×3 (00:37→22:35)
[2017-06-28] MEDS: SENNOSIDES 8.6 MG TABLET GT SCH ×2 (00:37→22:35)
[2017-06-28] MEDS: METOPROLOL TARTRATE 25 MG TABLET GT SCH ×3 (00:38→21:00)
[2017-06-28] MEDS: KCL 20 mEq in D5NS 1000 mL 1,000 ML IV SCH ×3 (01:46→22:41)
[2017-06-28 07:08] LABS: HEMATOCRIT 30.8 % (36-54); HEMOGLOBIN 10.2 g/dL (14.0-18.0); MEAN CORPUSCULAR HEMOGLOBIN 29 pg (27-31); MEAN CORPUSCULAR HGB CONC 33 % (32-36); MEAN CORPUSCULAR VOLUME 88 fL (79.0-98.0); PLATELET COUNT (AUTO) 237 K/uL (130-430); RED BLOOD CELL COUNT(AUTO) 3.49 MIL/uL (4.2-6.2); RED CELL DISTRIBUTION WIDTH 14.7 % (9.0-15.0); WHITE BLOOD COUNT (AUTO) 19.2 K/uL (4.8-10.8)
[2017-06-28 07:11] LABS: CALCIUM 7.8 mg/dL (8.4-11.0); CREATININE 0.51 mg/dL (0.55-1.30); POTASSIUM 3.3 mmol/L (3.5-5.1)
[2017-06-28 08:30] LABS: BAND % (MANUAL) 8 % (0-6); LYMPHOCYTES % (MANUAL) 7 % (20-46)
[2017-06-28 08:31] LABS: BASOPHILS % (MANUAL) 0 % (0-2); EOSINOPHILS % (MANUAL) 0 % (0-7); MONOCYTES % (MANUAL) 18 % (0-11)
[2017-06-28] MEDS: VALPROIC ACID ORAL SYRUP 250 MG/5 ML UDC GT SCH ×3 (09:00→22:34)
[2017-06-28] MEDS ORDERED: levETIRAcetam 500 MG TABLET GT SCH (09:00)
[2017-06-28] MEDS ORDERED: MULTIVITAMINS,THERAPEUTIC 5 ML UDC GT SCH (09:00)
[2017-06-28] MEDS: VANCOMYCIN HCL 1,500 MG in NS 250 ML IV SCH ×2 (09:30→22:40)
[2017-06-28] MEDS ORDERED: NS 500 ML IV ONE (10:45)
[2017-06-28] MEDS ORDERED: NOREPINEPHRINE BITARTRATE 4 MG in NS 246 ML IV PRN (13:30)
[2017-06-28] MEDS: CEFEPIME 1 GM/DEXT-ISO-OSM 50 ML IV SCH ×2 (13:54→22:33)
[2017-06-28] MEDS ORDERED: MULTIVITAMINS TAB 1 TABLET GT ONE (16:00)
[2017-06-28] MEDS ORDERED: ENOXAPARIN SODIUM 40 MG/0.4 ML SYRINGE SUBCUT SCH (21:00)
[2017-06-29] VITALS (31 sets, daily range): BP systolic 94–137
[2017-06-29 06:36] LABS: CREATININE 0.46 mg/dL (0.55-1.30); POTASSIUM 4.4 mmol/L (3.5-5.1)
[2017-06-29] MEDS: KCL 20 mEq in D5NS 1000 mL 1,000 ML IV SCH (07:16)
[2017-06-29 07:57] LABS: BASOPHILS % (AUTO) 0.4 % (0.0-2.0); EOSINOPHILS # (AUTO) 0.3 K/uL (0.0-0.4); EOSINOPHILS % (AUTO) 2.4 % (0.0-4.0); HEMATOCRIT 30.8 % (36-54); HEMOGLOBIN 9.9 g/dL (14.0-18.0); LYMPHOCYTES # (AUTO) 2.8 K/uL (1.0-5.5); LYMPHOCYTES % (AUTO) 23.6 % (20.5-51.5); MEAN CORPUSCULAR HEMOGLOBIN 29 pg (27-31); MEAN CORPUSCULAR HGB CONC 32 % (32-36); MEAN CORPUSCULAR VOLUME 89 fL (79.0-98.0); MONOCYTES % (AUTO) 16.6 % (1.7-9.3); NEUTROPHILS # (AUTO) 6.9 K/uL (1.8-7.7); PLATELET COUNT (AUTO) 301 K/uL (130-430); RED BLOOD CELL COUNT(AUTO) 3.48 MIL/uL (4.2-6.2); RED CELL DISTRIBUTION WIDTH 14.5 % (9.0-15.0)
[2017-06-29 08:25] LABS: BLOOD GAS PH 7.448 (7.350-7.450)
[2017-06-29 08:26] LABS: BLOOD GAS BASE EXCESS 2.3 mmol/L (-3.0-3.0); BLOOD GAS COHb% 0.3 % (0.5-1.5); BLOOD GAS HHB 2.8 % (0.0-6.0); BLOOD O2Hb% 96.4 % (94.0-97.0)
[2017-06-29] MEDS: VALPROIC ACID ORAL SYRUP 250 MG/5 ML UDC GT SCH ×2 (08:51→20:35)
[2017-06-29] MEDS: levETIRAcetam 500 MG TABLET GT SCH ×2 (08:51→20:38)
[2017-06-29] MEDS: CHLORHEXIDINE GLUCONATE 15 ML/DOSE, 480 ML MM SCH ×2 (08:51→20:38)
[2017-06-29] MEDS: CEFEPIME 1 GM/DEXT-ISO-OSM 50 ML IV SCH ×2 (08:51→20:38)
[2017-06-29] MEDS: MULTIVITAMINS TAB 1 TABLET GT SCH (08:51)
[2017-06-29] MEDS: METOPROLOL TARTRATE 25 MG TABLET GT SCH ×2 (08:52→20:37)
[2017-06-29] MEDS: VANCOMYCIN HCL 1,500 MG in NS 250 ML IV SCH ×2 (10:22→21:32)
[2017-06-29] MEDS: LORazepam 2 MG/ML VIAL IVP PRN ×2 (11:21→15:00)
[2017-06-29] MEDS: D5NS 1,000 ML IV SCH (14:45)
[2017-06-29] MEDS: SENNOSIDES 8.6 MG TABLET GT SCH (20:37)
[2017-06-30] VITALS (31 sets, daily range): BP systolic 99–138
[2017-06-30] MEDS: LORazepam 2 MG/ML VIAL IVP PRN (02:23)
[2017-06-30] MEDS: D5NS 1,000 ML IV SCH (05:56)
[2017-06-30 07:20] LABS: BASOPHILS % (AUTO) 0.6 % (0.0-2.0); EOSINOPHILS # (AUTO) 0.6 K/uL (0.0-0.4); EOSINOPHILS % (AUTO) 6.9 % (0.0-4.0); HEMATOCRIT 29.1 % (36-54); HEMOGLOBIN 9.6 g/dL (14.0-18.0); LYMPHOCYTES # (AUTO) 2.2 K/uL (1.0-5.5); MEAN CORPUSCULAR HEMOGLOBIN 29 pg (27-31); MEAN CORPUSCULAR HGB CONC 33 % (32-36); MEAN CORPUSCULAR VOLUME 88 fL (79.0-98.0); MONOCYTES # (AUTO) 1.2 K/uL (0.0-1.0); MONOCYTES % (AUTO) 15.1 % (1.7-9.3); NEUTROPHILS % (AUTO) 50.4 % (40.0-70.0); PLATELET COUNT (AUTO) 285 K/uL (130-430); RED BLOOD CELL COUNT(AUTO) 3.33 MIL/uL (4.2-6.2); RED CELL DISTRIBUTION WIDTH 14.8 % (9.0-15.0)
[2017-06-30 07:21] LABS: CALCIUM 8.3 mg/dL (8.4-11.0); CREATININE 0.51 mg/dL (0.55-1.30); POTASSIUM 3.8 mmol/L (3.5-5.1)
[2017-06-30] MEDS: VALPROIC ACID ORAL SYRUP 250 MG/5 ML UDC GT SCH ×2 (08:45→20:29)
[2017-06-30] MEDS: levETIRAcetam 500 MG TABLET GT SCH ×2 (08:48→20:26)
[2017-06-30] MEDS: METOPROLOL TARTRATE 25 MG TABLET GT SCH ×2 (08:49→20:27)
[2017-06-30] MEDS: MULTIVITAMINS TAB 1 TABLET GT SCH (08:49)
[2017-06-30] MEDS: CHLORHEXIDINE GLUCONATE 15 ML/DOSE, 480 ML MM SCH ×2 (08:50→20:27)
[2017-06-30] MEDS: CEFEPIME 1 GM/DEXT-ISO-OSM 50 ML IV SCH (08:50)
[2017-06-30] MEDS: VANCOMYCIN HCL 1,500 MG in NS 250 ML IV SCH ×2 (10:22→21:45)
[2017-06-30] MEDS: CEFTAZIDIME 1 GM in D5W 50 ML IV SCH ×2 (16:06→20:29)
[2017-06-30] MEDS ORDERED: FLUCONAZOLE 200 MG TABLET (DIFLUCAN) NG SCH (19:30)
[2017-06-30] MEDS ORDERED: FLUCONAZOLE 200 MG TABLET (DIFLUCAN) NG ONE (19:45)
[2017-06-30] MEDS: SENNOSIDES 8.6 MG TABLET GT SCH (20:27)
[2017-07-01] VITALS (21 sets, daily range): BP systolic 82–112
[2017-07-01] MEDS: D5NS 1,000 ML IV SCH ×2 (03:13→20:45)
[2017-07-01] MEDS: CEFTAZIDIME 1 GM in D5W 50 ML IV SCH ×3 (05:44→21:30)
[2017-07-01] MEDS: FLUCONAZOLE 200 MG TABLET (DIFLUCAN) NG SCH (08:22)
[2017-07-01] MEDS: MULTIVITAMINS TAB 1 TABLET GT SCH (08:22)
[2017-07-01] MEDS: levETIRAcetam 500 MG TABLET GT SCH ×2 (08:23→21:28)
[2017-07-01] MEDS: CHLORHEXIDINE GLUCONATE 15 ML/DOSE, 480 ML MM SCH ×2 (08:23→21:29)
[2017-07-01] MEDS: METOPROLOL TARTRATE 25 MG TABLET GT SCH ×2 (08:25→21:28)
[2017-07-01] MEDS: VANCOMYCIN HCL 1,500 MG in NS 250 ML IV SCH (10:28)
[2017-07-01] MEDS ORDERED: *TOBRAMYCIN PER PHARMACY XX PRN (11:00)
[2017-07-01] MEDS: VALPROIC ACID ORAL SYRUP 250 MG/5 ML UDC GT SCH ×2 (11:05→21:28)
[2017-07-01] MEDS: NS IV SCH ×2 (13:19→20:45)
[2017-07-01] MEDS: TOBRAMYCIN SULFATE IV SCH ×2 (13:19→20:45)
[2017-07-01] MEDS: SENNOSIDES 8.6 MG TABLET GT SCH (21:28)
[2017-07-02] VITALS: BP_SYST 95
[2017-07-02] MEDS: NS IV SCH ×3 (03:02→15:57)
[2017-07-02] MEDS: TOBRAMYCIN SULFATE IV SCH ×3 (03:02→15:57)
[2017-07-02] MEDS: CEFTAZIDIME 1 GM in D5W 50 ML IV SCH ×3 (05:14→21:11)
[2017-07-02 06:19] VITALS: BP_SYST 106
[2017-07-02 08:00] VITALS: BP_SYST 105
[2017-07-02 08:09] LABS: BASOPHILS # (AUTO) 0.1 K/uL (0.0-0.2); BASOPHILS % (AUTO) 0.6 % (0.0-2.0); EOSINOPHILS # (AUTO) 0.5 K/uL (0.0-0.4); EOSINOPHILS % (AUTO) 6.1 % (0.0-4.0); HEMATOCRIT 35.8 % (36-54); HEMOGLOBIN 11.9 g/dL (14.0-18.0); LYMPHOCYTES # (AUTO) 2.9 K/uL (1.0-5.5); LYMPHOCYTES % (AUTO) 33.3 % (20.5-51.5); MEAN CORPUSCULAR HEMOGLOBIN 29 pg (27-31); MEAN CORPUSCULAR HGB CONC 33 % (32-36); MEAN CORPUSCULAR VOLUME 87 fL (79.0-98.0); MONOCYTES % (AUTO) 12.1 % (1.7-9.3); NEUTROPHILS # (AUTO) 4.1 K/uL (1.8-7.7); NEUTROPHILS % (AUTO) 47.9 % (40.0-70.0); PLATELET COUNT (AUTO) 350 K/uL (130-430); RED CELL DISTRIBUTION WIDTH 13.9 % (9.0-15.0); WHITE BLOOD COUNT (AUTO) 8.6 K/uL (4.8-10.8)
[2017-07-02 08:48] LABS: CREATININE 0.59 mg/dL (0.55-1.30); POTASSIUM 4.2 mmol/L (3.5-5.1)
[2017-07-02] MEDS: MULTIVITAMINS TAB 1 TABLET GT SCH (08:51)
[2017-07-02] MEDS: FLUCONAZOLE 200 MG TABLET (DIFLUCAN) NG SCH (08:51)
[2017-07-02] MEDS: levETIRAcetam 500 MG TABLET GT SCH ×2 (08:51→21:12)
[2017-07-02] MEDS: METOPROLOL TARTRATE 25 MG TABLET GT SCH ×2 (08:52→21:11)
[2017-07-02] MEDS: CHLORHEXIDINE GLUCONATE 15 ML/DOSE, 480 ML MM SCH ×2 (08:52→21:12)
[2017-07-02] MEDS: VALPROIC ACID ORAL SYRUP 250 MG/5 ML UDC GT SCH ×2 (08:52→21:00)
[2017-07-02 10:37] LABS: TOBRAMYCIN,TROUGH 4.9 ug/mL (0.5-2.0)
[2017-07-02 12:49] VITALS: BP_SYST 128
[2017-07-02 16:31] VITALS: BP_SYST 132
[2017-07-02] MEDS: D5NS 1,000 ML IV SCH (17:18)
[2017-07-02 20:00] VITALS: BP_SYST 127
[2017-07-02] MEDS: SENNOSIDES 8.6 MG TABLET GT SCH (21:12)
[2017-07-03] VITALS (9 sets, daily range): BP systolic 95–116
[2017-07-03] MEDS: D5NS 1,000 ML IV SCH ×2 (01:35→22:23)
[2017-07-03] MEDS: NS IV SCH ×2 (03:48→16:54)
[2017-07-03] MEDS: TOBRAMYCIN SULFATE IV SCH ×2 (03:48→16:54)
[2017-07-03] MEDS: CEFTAZIDIME 1 GM in D5W 50 ML IV SCH ×3 (05:08→22:21)
[2017-07-03 07:49] LABS: BASOPHILS % (AUTO) 0.3 % (0.0-2.0); EOSINOPHILS # (AUTO) 0.3 K/uL (0.0-0.4); EOSINOPHILS % (AUTO) 3.1 % (0.0-4.0); HEMATOCRIT 32.1 % (36-54); HEMOGLOBIN 10.5 g/dL (14.0-18.0); LYMPHOCYTES # (AUTO) 3.4 K/uL (1.0-5.5); LYMPHOCYTES % (AUTO) 33.6 % (20.5-51.5); MEAN CORPUSCULAR HEMOGLOBIN 29 pg (27-31); MEAN CORPUSCULAR HGB CONC 33 % (32-36); MEAN CORPUSCULAR VOLUME 88 fL (79.0-98.0); MONOCYTES # (AUTO) 1.4 K/uL (0.0-1.0); MONOCYTES % (AUTO) 14.2 % (1.7-9.3); NEUTROPHILS # (AUTO) 4.9 K/uL (1.8-7.7); NEUTROPHILS % (AUTO) 48.8 % (40.0-70.0); PLATELET COUNT (AUTO) 370 K/uL (130-430); RED BLOOD CELL COUNT(AUTO) 3.65 MIL/uL (4.2-6.2); RED CELL DISTRIBUTION WIDTH 14.2 % (9.0-15.0)
[2017-07-03 08:14] LABS: PROTHROMBIN TIME 10.9 SECS (9.5-12.5)
[2017-07-03 08:17] LABS: ALBUMIN 2.5 g/dL (3.4-4.8); CREATININE 0.62 mg/dL (0.55-1.30); POTASSIUM 4.7 mmol/L (3.5-5.1); TOTAL BILIRUBIN 0.3 mg/dL (0.0-1.0); TOTAL PROTEIN, SERUM 6.8 g/dL (6.4-8.3)
[2017-07-03] MEDS: VALPROIC ACID ORAL SYRUP 250 MG/5 ML UDC GT SCH ×2 (08:40→21:00)
[2017-07-03] MEDS: levETIRAcetam 500 MG TABLET GT SCH ×2 (08:41→22:22)
[2017-07-03] MEDS: METOPROLOL TARTRATE 25 MG TABLET GT SCH ×2 (08:41→22:22)
[2017-07-03] MEDS: MULTIVITAMINS TAB 1 TABLET GT SCH (08:42)
[2017-07-03] MEDS: FLUCONAZOLE 200 MG TABLET (DIFLUCAN) NG SCH (08:42)
[2017-07-03] MEDS: CHLORHEXIDINE GLUCONATE 15 ML/DOSE, 480 ML MM SCH ×2 (09:01→22:22)
[2017-07-03] MEDS ORDERED: LR 1,000 ML IV SCH (14:50)
[2017-07-03] MEDS ORDERED: MEPERIDINE HCL/PF 25 MG/ML DISP.SYRIN IVP PRN (15:00)
[2017-07-03] MEDS ORDERED: HYDROmorphone 2 MG/ML VIAL IVP PRN ×2 (15:00)
[2017-07-03] MEDS ORDERED: HYDROmorphone 1 MG INJ. 1 MG/ML AMPUL IVP PRN (15:00)
[2017-07-03] MEDS: SENNOSIDES 8.6 MG TABLET GT SCH (22:21)
[2017-07-04 04:10] VITALS: BP_SYST 115
[2017-07-04] MEDS: NS IV SCH ×2 (04:41→15:02)
[2017-07-04] MEDS: TOBRAMYCIN SULFATE IV SCH ×2 (04:41→15:02)
[2017-07-04] MEDS: CEFTAZIDIME 1 GM in D5W 50 ML IV SCH ×3 (05:39→22:00)
[2017-07-04] MEDS: MULTIVITAMINS TAB 1 TABLET GT SCH (08:09)
[2017-07-04] MEDS: levETIRAcetam 500 MG TABLET GT SCH ×2 (08:09→22:01)
[2017-07-04] MEDS: FLUCONAZOLE 200 MG TABLET (DIFLUCAN) NG SCH (08:13)
[2017-07-04] MEDS: METOPROLOL TARTRATE 25 MG TABLET GT SCH (08:13)
[2017-07-04 08:20] VITALS: BP_SYST 85
[2017-07-04] MEDS: CHLORHEXIDINE GLUCONATE 15 ML/DOSE, 480 ML MM SCH ×2 (10:01→22:00)
[2017-07-04] MEDS: VALPROIC ACID ORAL SYRUP 250 MG/5 ML UDC GT SCH ×2 (10:01→22:01)
[2017-07-04] MEDS: D5NS 1,000 ML IV SCH (10:48)
[2017-07-04] MEDS ORDERED: ERTA1VIA IJ (11:19)
[2017-07-04 11:22] VITALS: BP_SYST 98
[2017-07-04 15:27] VITALS: BP_SYST 113
[2017-07-04] MEDS: TOBRAMYCIN 300MG/5ML INH AMPUL.NEB INH SCH (19:00)
[2017-07-04 20:10] VITALS: BP_SYST 105
[2017-07-04] MEDS: SENNOSIDES 8.6 MG TABLET GT SCH (22:01)
[2017-07-05 00:15] VITALS: BP_SYST 98
[2017-07-05 03:59] VITALS: BP_SYST 96
[2017-07-05] MEDS: TOBRAMYCIN SULFATE IV SCH ×2 (04:00→16:20)
[2017-07-05] MEDS: NS IV SCH ×2 (04:00→16:20)
[2017-07-05] MEDS: CEFTAZIDIME 1 GM in D5W 50 ML IV SCH ×3 (06:10→21:55)
[2017-07-05] MEDS: TOBRAMYCIN 300MG/5ML INH AMPUL.NEB INH SCH ×2 (08:16→20:14)
[2017-07-05 09:28] VITALS: BP_SYST 108
[2017-07-05] MEDS: MULTIVITAMINS TAB 1 TABLET GT SCH (09:32)
[2017-07-05] MEDS: CHLORHEXIDINE GLUCONATE 15 ML/DOSE, 480 ML MM SCH ×2 (09:33→20:34)
[2017-07-05] MEDS: FLUCONAZOLE 200 MG TABLET (DIFLUCAN) NG SCH (09:33)
[2017-07-05] MEDS: levETIRAcetam 500 MG TABLET GT SCH ×2 (09:33→20:34)
[2017-07-05] MEDS: VALPROIC ACID ORAL SYRUP 250 MG/5 ML UDC GT SCH ×2 (09:34→20:34)
[2017-07-05] MEDS: D5NS 1,000 ML IV SCH ×2 (09:38→20:38)
[2017-07-05 11:30] VITALS: BP_SYST 119
[2017-07-05 15:27] VITALS: BP_SYST 126
[2017-07-05 20:00] VITALS: BP_SYST 114
[2017-07-05] MEDS: SENNOSIDES 8.6 MG TABLET GT SCH (20:34)
[2017-07-05] MEDS: CEFTAZIDIME 1 GM VIAL ONE ×2 (21:52→21:56)
[2017-07-05] MEDS ORDERED: TOBRAMYCIN SULFATE 80 MG/2 ML VIAL ONE (22:26)
[2017-07-06] VITALS (8 sets, daily range): BP systolic 94–136
[2017-07-06] MEDS: TOBRAMYCIN SULFATE IV SCH (03:20)
[2017-07-06] MEDS: NS IV SCH (03:20)
[2017-07-06] MEDS: CEFTAZIDIME 1 GM in D5W 50 ML IV SCH ×3 (05:32→21:18)
[2017-07-06] MEDS: TOBRAMYCIN 300MG/5ML INH AMPUL.NEB INH SCH ×2 (07:46→20:26)
[2017-07-06] MEDS: levETIRAcetam 500 MG TABLET GT SCH ×2 (09:00→20:30)
[2017-07-06] MEDS: CHLORHEXIDINE GLUCONATE 15 ML/DOSE, 480 ML MM SCH ×2 (09:01→20:31)
[2017-07-06] MEDS: FLUCONAZOLE 200 MG TABLET (DIFLUCAN) NG SCH (09:01)
[2017-07-06] MEDS: MULTIVITAMINS TAB 1 TABLET GT SCH (09:01)
[2017-07-06] MEDS: VALPROIC ACID ORAL SYRUP 250 MG/5 ML UDC GT SCH ×2 (09:02→20:29)
[2017-07-06] MEDS: D5NS 1,000 ML IV SCH (10:23)
[2017-07-06] MEDS: SENNOSIDES 8.6 MG TABLET GT SCH (20:30)
[2017-07-07 01:08] VITALS: BP_SYST 123
[2017-07-07 05:18] VITALS: BP_SYST 125
[2017-07-07] MEDS: D5NS 1,000 ML IV SCH (05:53)
[2017-07-07] MEDS: CEFTAZIDIME 1 GM in D5W 50 ML IV SCH ×3 (05:54→21:36)
[2017-07-07] MEDS: TOBRAMYCIN 300MG/5ML INH AMPUL.NEB INH SCH ×2 (07:20→19:47)
[2017-07-07 07:43] LABS: BASOPHILS % (AUTO) 0.3 % (0.0-2.0); CALCIUM 9.1 mg/dL (8.4-11.0); CREATININE 0.62 mg/dL (0.55-1.30); EOSINOPHILS # (AUTO) 0.2 K/uL (0.0-0.4); EOSINOPHILS % (AUTO) 2.7 % (0.0-4.0); HEMATOCRIT 34.4 % (36-54); HEMOGLOBIN 11.3 g/dL (14.0-18.0); LYMPHOCYTES % (AUTO) 34.7 % (20.5-51.5); MEAN CORPUSCULAR HEMOGLOBIN 29 pg (27-31); MEAN CORPUSCULAR HGB CONC 33 % (32-36); MEAN CORPUSCULAR VOLUME 88 fL (79.0-98.0); MONOCYTES % (AUTO) 11.4 % (1.7-9.3); NEUTROPHILS # (AUTO) 4.5 K/uL (1.8-7.7); NEUTROPHILS % (AUTO) 50.9 % (40.0-70.0); PLATELET COUNT (AUTO) 436 K/uL (130-430); POTASSIUM 4.9 mmol/L (3.5-5.1); RED BLOOD CELL COUNT(AUTO) 3.89 MIL/uL (4.2-6.2); RED CELL DISTRIBUTION WIDTH 14.8 % (9.0-15.0); WHITE BLOOD COUNT (AUTO) 8.7 K/uL (4.8-10.8)
[2017-07-07 08:00] VITALS: BP_SYST 109
[2017-07-07] MEDS: VALPROIC ACID ORAL SYRUP 250 MG/5 ML UDC GT SCH ×2 (09:03→21:35)
[2017-07-07] MEDS: CHLORHEXIDINE GLUCONATE 15 ML/DOSE, 480 ML MM SCH ×2 (09:03→21:35)
[2017-07-07] MEDS: levETIRAcetam 500 MG TABLET GT SCH ×2 (09:03→21:35)
[2017-07-07] MEDS: MULTIVITAMINS TAB 1 TABLET GT SCH (09:03)
[2017-07-07 12:42] VITALS: BP_SYST 118
[2017-07-07 16:20] VITALS: BP_SYST 125
[2017-07-07 20:00] VITALS: BP_SYST 127
[2017-07-07] MEDS: SENNOSIDES 8.6 MG TABLET GT SCH (21:34)
[2017-07-08] MEDS: D5NS 1,000 ML IV SCH ×3 (01:13→21:46)
[2017-07-08 04:05] VITALS: BP_SYST 101
[2017-07-08] MEDS: CEFTAZIDIME 1 GM in D5W 50 ML IV SCH ×3 (05:48→21:56)
[2017-07-08] MEDS: TOBRAMYCIN 300MG/5ML INH AMPUL.NEB INH SCH ×2 (07:29→19:46)
[2017-07-08 08:00] VITALS: BP_SYST 101
[2017-07-08] MEDS: levETIRAcetam 500 MG TABLET GT SCH ×2 (09:26→21:55)
[2017-07-08] MEDS: VALPROIC ACID ORAL SYRUP 250 MG/5 ML UDC GT SCH ×2 (09:26→21:56)
[2017-07-08] MEDS: MULTIVITAMINS TAB 1 TABLET GT SCH (09:26)
[2017-07-08] MEDS: CHLORHEXIDINE GLUCONATE 15 ML/DOSE, 480 ML MM SCH ×2 (09:37→21:55)
[2017-07-08 12:32] VITALS: BP_SYST 114
[2017-07-08 16:30] VITALS: BP_SYST 129
[2017-07-08 20:00] VITALS: BP_SYST 122
[2017-07-08] MEDS: SENNOSIDES 8.6 MG TABLET GT SCH (21:55)
[2017-07-09] VITALS (7 sets, daily range): BP systolic 115–142
[2017-07-09] MEDS: CEFTAZIDIME 1 GM in D5W 50 ML IV SCH ×2 (06:20→14:07)
[2017-07-09] MEDS: TOBRAMYCIN 300MG/5ML INH AMPUL.NEB INH SCH (07:21)
[2017-07-09 07:31] LABS: CALCIUM 8.7 mg/dL (8.4-11.0); CREATININE 0.59 mg/dL (0.55-1.30); POTASSIUM 4.1 mmol/L (3.5-5.1)
[2017-07-09] MEDS: VALPROIC ACID ORAL SYRUP 250 MG/5 ML UDC GT SCH (09:16)
[2017-07-09] MEDS: MULTIVITAMINS TAB 1 TABLET GT SCH (09:17)
[2017-07-09] MEDS: levETIRAcetam 500 MG TABLET GT SCH (09:17)
[2017-07-09] MEDS: CHLORHEXIDINE GLUCONATE 15 ML/DOSE, 480 ML MM SCH (09:17)
[2017-07-09] MEDS: D5NS 1,000 ML IV SCH (14:17)
== END 2017-07-09 18:35 | DRG 720 ==
LOC: SED 17:26 → SIC 20:41 → STU 07-01 20:18
PROVIDERS: ADMIT Family Medicine; ATTEND Family Medicine
PROC: 5A1955Z Respiratory Ventilation, Greater than 96 Consecutive Hours (ICD-10-PCS; principal; 2017-06-27)
PROC: 02HV33Z Insertion of Infusion Device into Superior Vena Cava, Percutaneous Approach (ICD-10-PCS; 2017-06-27)
PROC: B548ZZA Ultrasonography of Superior Vena Cava, Guidance (ICD-10-PCS; 2017-06-27)
PROC: 0JH60XZ Insertion of Tunneled Vascular Access Device into Chest Subcutaneous Tissue and Fascia, Open Approach (ICD-10-PCS; 2017-07-03)
PROC: 02HV33Z Insertion of Infusion Device into Superior Vena Cava, Percutaneous Approach (ICD-10-PCS; 2017-07-03)
DX: A41.9 Sepsis, unspecified organism (principal); R65.21 Severe sepsis with septic shock; E43 Unspecified severe protein-calorie malnutrition; Z99.11 Dependence on respirator [ventilator] status; G93.40 Encephalopathy, unspecified; G82.50 Quadriplegia, unspecified; J96.10 Chronic respiratory failure, unspecified whether with hypoxia or hypercapnia; J15.1 Pneumonia due to Pseudomonas; J44.0 Chronic obstructive pulmonary disease with (acute) lower respiratory infection; G40.909 Epilepsy, unspecified, not intractable, without status epilepticus; F79 Unspecified intellectual disabilities; Z16.24 Resistance to multiple antibiotics; E87.1 Hypo-osmolality and hyponatremia; I10 Essential (primary) hypertension; R31.29 Other microscopic hematuria; B37.49 Other urogenital candidiasis; Z93.0 Tracheostomy status; Z93.1 Gastrostomy status; Z87.01 Personal history of pneumonia (recurrent); Z74.01 Bed confinement status; Z87.440 Personal history of urinary (tract) infections; Z87.820 Personal history of traumatic brain injury; Z68.28 Body mass index [BMI] 28.0-28.9, adult
CPT/HCPCS: 36415; 36600; 71010; 76000; 80048; 80053; 80200; 80202-TC; 81000-TC; 82550-TC; 82803-TC; 83605; 84100-TC; 84484; 85007; 85025; 85027; 85610-TC; 85730-TC; 87040-TC; 87070-TC; 87081; 87086; 87186-TC; 87205-TC; 93005; 93971; 94002; 94003; 94640; 94760; 96361; 96365; 99285; C1751; C1788; J0692; J0696; J0713; J2060; J3260; J3370; J7030; J7040; J7042; J7050; J7060; Q0144

== ENCOUNTER 2021-05-26 07:33 | Inpatient (IN) | payer OTHER, MEDICAID, SELFPAY ==
[~2021-05-26] VITALS: Ht 172.7 cm; Wt 81.6 kg
[2021-05-26] VITALS (15 sets, daily range): BP systolic 98–138
[~2021-05-26 07:33] MED LIST changes: +CRAN1CAP6 GT; +LANS30CA56 GT; +LEVE100S2 GT; -LEVE500T53 GT; -MAGN400O4 GT; +MOM GT; +MULT-1089 GT
--- NOTE | 2021-05-26 07:40 | NUR ---
Placed in room 8 . Placed on patient monitor, blood pressure machine and pulse oximeter. To gown for exam. Side rails up. Report given to Ej SWARTZ.
--- NOTE | 2021-05-26 07:42 | NUR ---
MD MOORE AT BEDSIDE ASSESSING PT.
[2021-05-26] MEDS ORDERED: NACL 0.9% 1,000 ML IV ONE ×2 (07:45→08:45)
--- NOTE | 2021-05-26 08:02 | NUR ---
MAXIME LARA INSERTED 22G INTO THE RIGHT SIDE PECTORAL. FLUSHES WELL. PT IS VERY HARD IV INSERT, D/T SEVERE CONTRACTURE, OF ALL EXTREMITIES. PT IS ON TRACH TO VENTILATOR.
[2021-05-26 08:15] LABS: BASOPHILS % (AUTO) 0.5 % (0.0-2.0); EOSINOPHILS # (AUTO) 0.1 K/uL (0.0-0.4); EOSINOPHILS % (AUTO) 0.9 % (0.0-4.0); HEMATOCRIT 36.4 % (36-54); HEMOGLOBIN 12.3 g/dL (14.0-18.0); LYMPHOCYTES # (AUTO) 1.1 K/uL (1.0-5.5); LYMPHOCYTES % (AUTO) 11.9 % (20.5-51.5); MEAN CORPUSCULAR HEMOGLOBIN 30 pg (27-31); MEAN CORPUSCULAR HGB CONC 34 % (32-36); MEAN CORPUSCULAR VOLUME 89 fL (79.0-98.0); MONOCYTES # (AUTO) 1.2 K/uL (0.0-1.0); MONOCYTES % (AUTO) 13.3 % (1.7-9.3); NEUTROPHILS # (AUTO) 6.7 K/uL (1.8-7.7); NEUTROPHILS % (AUTO) 73.4 % (40.0-70.0); PLATELET COUNT (AUTO) 379 K/uL (130-430); RED CELL DISTRIBUTION WIDTH 14.6 % (9.0-15.0); WHITE BLOOD COUNT (AUTO) 9.1 K/uL (4.8-10.8)
[2021-05-26 08:29] LABS: CALCIUM 9.3 mg/dL (8.4-11.0); CREATININE 0.71 mg/dL (0.55-1.30); POTASSIUM 4.1 mmol/L (3.5-5.1)
[2021-05-26 08:41] LABS: ALBUMIN 3.2 g/dL (3.4-4.8); TOTAL BILIRUBIN 0.3 mg/dL (0.0-1.0)
[2021-05-26] MEDS ORDERED: IBUPROFEN 800 MG TABLET GT ONE (08:45)
[2021-05-26 08:46] LABS: CLARITY/URINE CLOUDY (CLEAR); COLOR,URINE YELLOW (YELLOW); PH,URINE 7.5 (5.0-8.0)
[2021-05-26 08:47] LABS: BILIRUBIN,URINE NEGATIVE (NEGATIVE); BLOOD, URINE TRACE (NEGATIVE); GLUCOSE,URINE NEGATIVE (NEGATIVE); KETONES,URINE NEGATIVE (NEGATIVE); LEUKOCYTE ESTERASE ,URINE 2+ (NEGATIVE); PROTEIN URINE TRACE (NEGATIVE)
[2021-05-26 08:48] LABS: NITRITE, URINE POSITIVE (NEGATIVE); UROBILINOGEN,URINE 0.2 (0.2-1.0)
--- NOTE | 2021-05-26 09:00 | NUR ---
per pt's LISA pt is a Full Code
[2021-05-26] MEDS ORDERED: cefTRIAXone 1 GM in D5W 50 ML IV ONE (09:15)
--- NOTE | 2021-05-26 09:18 | NUR ---
mrsa and rapid covid swab collected and sent to lab
[2021-05-26 09:19] LABS: BACTERIA,URINE MANY /HPF (None Seen); WBC,URINE 80-100 /HPF (0-3)
[2021-05-26 09:20] LABS: MUCUS,URINE None Seen /LPF (None Seen)
[2021-05-26 09:21] LABS: C-REACTIVE PROTEIN QUANT 3.4 mg/dL (0-0.5)
[2021-05-26] MEDS ORDERED: NOR10 PO (09:28)
[2021-05-26] MEDS ORDERED: Uti-stat GT (09:28)
[2021-05-26] MEDS ORDERED: sodium chloride GT (09:28)
[2021-05-26] MEDS ORDERED: DOCU-156 PO (09:28)
--- NOTE | 2021-05-26 09:38 | NUR ---
Medication reconciliation completed with information provided by pt's medical chart. Any prior medication reconciliation on file was reviewed and corrected.
--- NOTE | 2021-05-26 09:48 | NUR ---
admit orders received from Dr. Abdi. Unable to obtain bed assignement at this time
--- NOTE | 2021-05-26 10:00 | NUR ---
CONSULT: paged Dr. Duckworth for admission consult per dr. dumontium admission order [phone]
--- NOTE | 2021-05-26 10:28 | NUR ---
MD MOORE PLACED CENTRAL LINE.
--- NOTE | 2021-05-26 10:30 | NUR ---
RN PLACED NEW KEITH CATHETER.
[2021-05-26] MEDS ORDERED: cefTRIAXone 1 GM VIAL ONE (10:41)
[2021-05-26] MEDS: KCL 20 mEq in NS 1000 mL 1,000 ML IV SCH ×3 (10:58→23:05)
[2021-05-26] MEDS ORDERED: ALBUTEROL SULFATE 0.083% 2.5 MG/3 ML VIAL.NEB INH PRN (15:00)
[2021-05-26] MEDS ORDERED: BISACODYL 10 MG/SUPPOSITORY RC PRN (15:00)
[2021-05-26] MEDS ORDERED: ACETAMINOPHEN 650 MG/20.3 ML UDC GT PRN (15:00)
[2021-05-26] MEDS ORDERED: amLODIPine BESYLATE 10 MG TABLET PO ONE (15:00)
[2021-05-26] MEDS ORDERED: LORazepam 2 MG/ML VIAL IVP PRN (15:00)
[2021-05-26] MEDS ORDERED: amLODIPine BESYLATE 10 MG TABLET GT ONE (15:00)
[2021-05-26] MEDS ORDERED: MEROPENEM 500 MG in NS 50 ML IV ONE (15:00)
[2021-05-26] MEDS ORDERED: LevETIRAcetam 500 MG/5 ML UDC ORAL LIQUID GT ONE (15:15)
[2021-05-26] MEDS ORDERED: SODIUM CHLORIDE 500 MG TABLET GT ONE (15:15)
[2021-05-26] MEDS ORDERED: DOCUSATE SODIUM 100 MG/10 ML UDC GT ONE (15:15)
[2021-05-26] MEDS ORDERED: MULTIVITAMINS TAB 1 TABLET GT ONE (15:15)
[2021-05-26] MEDS ORDERED: METOPROLOL TARTRATE 25 MG TABLET GT ONE (15:15)
[2021-05-26] MEDS ORDERED: LANSOPRAZOLE 30 MG CAPSULE.DR GT ONE (15:15)
[2021-05-26] MEDS ORDERED: LACTOBACILLUS RHAMNOSUS GG 1 CAP CAPSULE GT ONE (15:15)
[2021-05-26] MEDS ORDERED: VALPROIC ACID ORAL SYRUP 250 MG/5 ML UDC GT ONE (15:30)
[2021-05-26] MEDS ORDERED: MEROPENEM 500 MG VIAL IV ONE (15:35)
--- NOTE | 2021-05-26 16:00 | NUR ---
TRANSFERRED PT TO ICU 3 FROM ER 8 VIA ROBB VENT. NO RESPIRATORY DISTRESS NOTED. SPO2 99%, HR 115.
--- NOTE | 2021-05-26 16:00 | NUR ---
RN notes: received patient from ER,received bedside report from EMS COORDINATOR. patient is lying in bed, no signs of acute distress noted at this time, bed locked at lowest position, yee catheter draining to gravity, G- tube in place.fall and safety precaution in place.
--- NOTE | 2021-05-26 16:05 | NUR ---
Note doreen in EDM - 05/26/21 at 1622 by TWIN Patient will be admitted to care of Dr. Brody. Admitted to ICU unit. Will go to room 3. Belongings list completed. Complete and up to date summary report printed. SBAR report to be given at bedside with opportunity for questions.
--- NOTE | 2021-05-26 16:44 | NUR ---
RN notes: tubefeeding started, Jevity 1.2 @ 40 mls/hr.
--- NOTE | 2021-05-26 19:25 | NUR ---
OPENING NOTE Received SBAR report from off coming RN for continuation of care. Pt laying in bed, eyes open. Pt trach to vent, no s/s of distress noted. Tube feeding infusing. IVF infusing. Gutiérrez catheter in place and draining to gravity. Seizure precautions in place. Bed locked and in lowest position, safety precautions in place.
--- NOTE | 2021-05-26 19:30 | NUR ---
closing notes: endorsed patient to activity therapy specialist RN for continuation of care.
[2021-05-26] MEDS: ENOXAPARIN SODIUM 40 MG/0.4 ML SYRINGE SUBCUT SCH (20:33)
[2021-05-26] MEDS: METOPROLOL TARTRATE 25 MG TABLET GT SCH (20:35)
[2021-05-26] MEDS: SODIUM CHLORIDE 500 MG TABLET GT SCH (20:36)
[2021-05-26] MEDS: LANSOPRAZOLE 30 MG CAPSULE.DR GT SCH (20:36)
[2021-05-26] MEDS: DOCUSATE SODIUM 100 MG/10 ML UDC GT SCH (20:36)
[2021-05-26] MEDS: LACTOBACILLUS RHAMNOSUS GG 1 CAP CAPSULE GT SCH (20:36)
[2021-05-26] MEDS: LevETIRAcetam 500 MG/5 ML UDC ORAL LIQUID GT SCH (20:39)
[2021-05-26] MEDS: VALPROIC ACID ORAL SYRUP 250 MG/5 ML UDC GT SCH ×2 (20:39→20:46)
[2021-05-26] MEDS: CHLORHEXIDINE GLUCONATE 15 ML/DOSE, 480 ML MM SCH (20:40)
[2021-05-26] MEDS: SENNA 8.8 MG/5 ML UDC GT SCH ×2 (20:40→20:45)
[2021-05-26] MEDS ORDERED: SODIUM CHLORIDE 500 MG TABLET ONE (20:40)
[2021-05-26] MEDS ORDERED: LevETIRAcetam 500 MG/5 ML UDC ORAL LIQUID ONE (20:41)
[2021-05-26] MEDS: ACETAMINOPHEN 650 MG/20.3 ML UDC GT PRN (20:52)
--- NOTE | 2021-05-26 21:00 | NUR ---
Pt laying in bed with eyes open, withdraws to painful stimuli. Pt trach to vent, tolerating current vent settings. Provided PO care and suctioning, pt tolerated well. G tube in place, no residuals obtained, tube feeding infusing. Gutiérrez catheter in place and draining to gravity, yellow urine noted. Turned and repositioned, pt tolerated well. Seizure precautions in place. Bed locked and in lowest position, safety precautions in place.
[2021-05-26] MEDS: MEROPENEM 500 MG in NS 50 ML IV SCH (22:52)
[2021-05-27] VITALS (36 sets, daily range): BP systolic 83–137
--- NOTE | 2021-05-27 02:16 | NUR ---
PAGED [facility] [phone]
[2021-05-27] MEDS ORDERED: NOREPINEPHRINE 4 MG/4 ML VIAL IV ONE (02:20)
[2021-05-27] MEDS: NOREPINEPHRINE BITARTRATE 4 MG in NS 246 ML IV PRN ×2 (02:25→12:33)
--- NOTE | 2021-05-27 02:45 | NUR ---
PAGED DR. ARREGUIN [phone]
--- NOTE | 2021-05-27 04:35 | NUR ---
DR. ARREGUIN SECOND PAGE OUT TO AT THIS TIME. PAGED AT [phone]. WILL AWAIT MD CALL BACK.
[2021-05-27] MEDS: KCL 20 mEq in NS 1000 mL 1,000 ML IV SCH ×3 (04:38→22:09)
[2021-05-27] MEDS: ACETAMINOPHEN 650 MG/20.3 ML UDC GT PRN (05:43)
[2021-05-27] MEDS: MEROPENEM 500 MG in NS 50 ML IV SCH ×3 (05:46→23:04)
[2021-05-27 06:54] LABS: BASOPHILS # (AUTO) 0.1 K/uL (0.0-0.2); BASOPHILS % (AUTO) 0.6 % (0.0-2.0); EOSINOPHILS # (AUTO) 0.1 K/uL (0.0-0.4); HEMOGLOBIN 12.2 g/dL (14.0-18.0); LYMPHOCYTES # (AUTO) 3.6 K/uL (1.0-5.5); LYMPHOCYTES % (AUTO) 28.3 % (20.5-51.5); MEAN CORPUSCULAR HEMOGLOBIN 30 pg (27-31); MEAN CORPUSCULAR HGB CONC 33 % (32-36); MEAN CORPUSCULAR VOLUME 91 fL (79.0-98.0); MONOCYTES # (AUTO) 2.1 K/uL (0.0-1.0); MONOCYTES % (AUTO) 16.4 % (1.7-9.3); NEUTROPHILS # (AUTO) 6.8 K/uL (1.8-7.7); PLATELET COUNT (AUTO) 377 K/uL (130-430); RED BLOOD CELL COUNT(AUTO) 4.06 MIL/uL (4.2-6.2); RED CELL DISTRIBUTION WIDTH 14.9 % (9.0-15.0); WHITE BLOOD COUNT (AUTO) 12.6 K/uL (4.8-10.8)
[2021-05-27 07:17] LABS: ANION GAP 12 (5-15); CALCIUM 8.8 mg/dL (8.4-11.0); CHLORIDE 106 mmol/L (98-107); CREATININE 0.52 mg/dL (0.55-1.30); GLUCOSE 146 mg/dL (70-99); POTASSIUM 4.1 mmol/L (3.5-5.1); SODIUM SERUM 137 mmol/L (136-145); UREA NITROGEN, BLOOD 10 mg/dL (8-21)
--- NOTE | 2021-05-27 07:18 | NUR ---
rt notesrt notes 0718 decreased fio2 to 35%, pt saturating 99%. will continue to monitor pt. NOC MAXIME Durbin/ AM RN Cristino aware.
[2021-05-27 07:24] LABS: GFR AFRICAN AMERICAN 212 mL/min (>90)
--- NOTE | 2021-05-27 07:28 | NUR ---
Closing Note Endorsed bedside report to incoming RN using SBAR approach for continuation of care.
--- NOTE | 2021-05-27 07:29 | NUR ---
Opening notes: received bedside report from endorsing casino shift manager RN, patient is lying on bed on Levophed @ 0.06 mcg/kg/min. and 20 mEQ of potassium chloride @ 150 ml/hr.Gutiérrez catheter in place draining to gravity.G- tube in place Jevity 1.5 @ 40. bed locked at lowest position.fall and safety precaution in place.
[2021-05-27 07:46] LABS: PROTHROMBIN TIME 10.4 SECS (9.5-12.5)
[2021-05-27] MEDS: LACTOBACILLUS RHAMNOSUS GG 1 CAP CAPSULE GT SCH ×2 (08:16→21:40)
[2021-05-27] MEDS: DOCUSATE SODIUM 100 MG/10 ML UDC GT SCH ×2 (08:16→21:42)
[2021-05-27] MEDS: VALPROIC ACID ORAL SYRUP 250 MG/5 ML UDC GT SCH ×2 (08:19→21:43)
[2021-05-27] MEDS: LANSOPRAZOLE 30 MG CAPSULE.DR GT SCH ×2 (08:20→21:41)
[2021-05-27] MEDS: METOPROLOL TARTRATE 25 MG TABLET GT SCH ×2 (08:21→21:00)
[2021-05-27] MEDS: SODIUM CHLORIDE 500 MG TABLET GT SCH ×2 (08:22→21:42)
[2021-05-27] MEDS: MULTIVITAMINS TAB 1 TABLET GT SCH (08:27)
[2021-05-27] MEDS: amLODIPine BESYLATE 10 MG TABLET GT SCH (08:28)
[2021-05-27] MEDS: LevETIRAcetam 500 MG/5 ML UDC ORAL LIQUID GT SCH ×2 (08:29→21:47)
[2021-05-27] MEDS: CHLORHEXIDINE GLUCONATE 15 ML/DOSE, 480 ML MM SCH ×2 (08:30→21:47)
[2021-05-27 11:30] LABS: NEUTROPHILS % (AUTO) 53.7 % (40.0-70.0)
--- NOTE | 2021-05-27 13:45 | NUR ---
rt notes 1345 decreased fio2 to 30%, pt saturating 98%. will continue to monitor pt. MAXIME Gregg aware.
[2021-05-27] MEDS: ENOXAPARIN SODIUM 40 MG/0.4 ML SYRINGE SUBCUT SCH (21:46)
[2021-05-27] MEDS: SENNA 8.8 MG/5 ML UDC GT SCH (21:46)
[2021-05-28] VITALS (34 sets, daily range): BP systolic 98–128
[2021-05-28] MEDS: MEROPENEM 500 MG in NS 50 ML IV SCH ×3 (05:09→21:10)
[2021-05-28] MEDS: KCL 20 mEq in NS 1000 mL 1,000 ML IV SCH ×2 (05:10→11:52)
[2021-05-28 06:53] LABS: BASOPHILS # (AUTO) 0.1 K/uL (0.0-0.2); BASOPHILS % (AUTO) 0.6 % (0.0-2.0); EOSINOPHILS # (AUTO) 0.2 K/uL (0.0-0.4); EOSINOPHILS % (AUTO) 1.4 % (0.0-4.0); HEMATOCRIT 35.7 % (36-54); HEMOGLOBIN 11.6 g/dL (14.0-18.0); MEAN CORPUSCULAR HEMOGLOBIN 29 pg (27-31); MEAN CORPUSCULAR HGB CONC 33 % (32-36); MEAN CORPUSCULAR VOLUME 90 fL (79.0-98.0); MONOCYTES # (AUTO) 2.5 K/uL (0.0-1.0); MONOCYTES % (AUTO) 18.2 % (1.7-9.3); NEUTROPHILS # (AUTO) 6.9 K/uL (1.8-7.7); NEUTROPHILS % (AUTO) 50.8 % (40.0-70.0); PLATELET COUNT (AUTO) 348 K/uL (130-430); RED BLOOD CELL COUNT(AUTO) 3.96 MIL/uL (4.2-6.2); RED CELL DISTRIBUTION WIDTH 14.8 % (9.0-15.0); WHITE BLOOD COUNT (AUTO) 13.6 K/uL (4.8-10.8)
--- NOTE | 2021-05-28 06:58 | NUR ---
Nutrition Update Broderick Scale 11 noted. Pt admitted for Severe sepsis Diet: Jevity 1.5 at 40ml x 20 hrs, FWF 50ml via GT BMI: 27.4 kg/m2 RD to follow per nutrition care standards.
[2021-05-28 07:25] LABS: CALCIUM 8.7 mg/dL (8.4-11.0); CREATININE 0.54 mg/dL (0.55-1.30); POTASSIUM 4.4 mmol/L (3.5-5.1)
--- NOTE | 2021-05-28 07:32 | NUR ---
ENDORSEMENT Patient care endorsed to dayshift RN using nursing SBAR.
--- NOTE | 2021-05-28 07:40 | NUR ---
OPENING NOTE Patient resting in the bed. No acute distress. Trach intact to vent: AC 14, VT 500, FIO2 30%, PEEP 5. HOB elevated. On GT feeding of Jevity 1.5 at 50ml/hr. Skin warm and dry to touch. Central line intact to right femoral, no redness, no swelling, no drainage, covered with clean and dry transparent dressing. F/C intact, drain gravity. Safety measure maintained. Call light within reached. Bed locked in low position, padded side rails up, bed alarm on. Will continue to monitor.
[2021-05-28] MEDS: LACTOBACILLUS RHAMNOSUS GG 1 CAP CAPSULE GT SCH ×2 (09:16→21:02)
[2021-05-28] MEDS: DOCUSATE SODIUM 100 MG/10 ML UDC GT SCH ×2 (09:16→21:05)
[2021-05-28] MEDS: MULTIVITAMINS TAB 1 TABLET GT SCH (09:16)
[2021-05-28] MEDS: LANSOPRAZOLE 30 MG CAPSULE.DR GT SCH ×2 (09:17→21:02)
[2021-05-28] MEDS: amLODIPine BESYLATE 10 MG TABLET GT SCH (09:17)
[2021-05-28] MEDS: SODIUM CHLORIDE 500 MG TABLET GT SCH ×2 (09:18→21:02)
[2021-05-28] MEDS: LevETIRAcetam 500 MG/5 ML UDC ORAL LIQUID GT SCH ×2 (09:19→21:06)
[2021-05-28] MEDS: VALPROIC ACID ORAL SYRUP 250 MG/5 ML UDC GT SCH ×2 (09:19→21:06)
[2021-05-28] MEDS: CHLORHEXIDINE GLUCONATE 15 ML/DOSE, 480 ML MM SCH ×2 (09:21→21:07)
[2021-05-28] MEDS: METOPROLOL TARTRATE 25 MG TABLET GT SCH ×2 (09:48→21:00)
--- NOTE | 2021-05-28 11:00 | NUR ---
HANDS OFF Report and SBAR given to Navarrete at bedside. Patient resting in the bed. No acute distress. Trach intact to vent. HOB elevated all the time. GT intact, GT feeding tolerated well. Central line intact to right femoral, IVF infusing well. F/C intact, drain gravity. Safety measure maintained. Call light within reached. Hand off to Navarrete and continue plan of care.
--- NOTE | 2021-05-28 11:54 | NUR ---
Dietitian Recommendations *Recommend: increase EN support to better meet increased nutrient needs. *Recommend: Jevity 1.5 at 55ml/hr, FWF 180ml Q6H via GT Provides: 1980 kcal, 84gm protein and 1723ml fluids daily. Meets: 97% of estimated calorie needs and 80% of lower end of estimated protein needs. Please see nutritional assessment for details. CUSTODIAL, RD
--- NOTE | 2021-05-28 13:45 | NUR ---
Dr. Abdi at bedside. Provide patient update. No new orders.
--- NOTE | 2021-05-28 14:54 | NUR ---
Dr. Sands at bedside. Provided patient update. Received order to downgrade patient to telemetry. Addendum: 05/28/21 at 1459 by Geovanny Correia RN In addition. DC Potassium 20 MEQ NS @150 cc and start patient on NS 75 cc IV scheduled.
--- NOTE | 2021-05-28 15:09 | NUR ---
Request for [place] evaluation sent to Shereen waller
[2021-05-28] MEDS: NACL 0.9% 1,000 ML IV SCH (16:55)
--- NOTE | 2021-05-28 19:25 | NUR ---
Opening Note Patient laying in bed, eyes open to tactile and verbal stimuli. Patient trach to vent, oxygen saturation is above 90%. Gutiérrez catheter in place, draining to gravity, yellow urine noted. Bed locked and in lowest position, safety precautions in place.
[2021-05-28] MEDS: ENOXAPARIN SODIUM 40 MG/0.4 ML SYRINGE SUBCUT SCH (21:05)
[2021-05-28] MEDS: SENNA 8.8 MG/5 ML UDC GT SCH (21:07)
[2021-05-29] VITALS (27 sets, daily range): BP systolic 100–131
[2021-05-29] MEDS: MEROPENEM 500 MG in NS 50 ML IV SCH ×2 (06:35→14:30)
[2021-05-29] MEDS: NACL 0.9% 1,000 ML IV SCH (06:36)
--- NOTE | 2021-05-29 07:20 | NUR ---
Closing Note Endorsed bedside report to incoming RN using SBAR approach for continuation of care.
--- NOTE | 2021-05-29 07:50 | NUR ---
AM ROUNDS: PATIENT AWAKE,NON VERBAL. OPENS EYES TO VOICE.ON TRACH VENT WITH FIO2=30%,WITH O2 SATURATION=99%. NON LABORED. TUBE FEEDS ON GOING AT40CC/H.KEITH IN YELLOW URINE IN MODERATE AMOUNT. NO ACUTE DISTRESS THIS TIME.
[2021-05-29] MEDS: DOCUSATE SODIUM 100 MG/10 ML UDC GT SCH (08:51)
[2021-05-29] MEDS: SODIUM CHLORIDE 500 MG TABLET GT SCH (08:51)
[2021-05-29] MEDS: LANSOPRAZOLE 30 MG CAPSULE.DR GT SCH (08:52)
[2021-05-29] MEDS: LACTOBACILLUS RHAMNOSUS GG 1 CAP CAPSULE GT SCH (08:52)
[2021-05-29] MEDS: MULTIVITAMINS TAB 1 TABLET GT SCH (08:52)
[2021-05-29] MEDS: LevETIRAcetam 500 MG/5 ML UDC ORAL LIQUID GT SCH (08:53)
[2021-05-29] MEDS: VALPROIC ACID ORAL SYRUP 250 MG/5 ML UDC GT SCH (08:53)
[2021-05-29] MEDS: CHLORHEXIDINE GLUCONATE 15 ML/DOSE, 480 ML MM SCH (08:54)
[2021-05-29] MEDS: METOPROLOL TARTRATE 25 MG TABLET GT SCH (09:00)
[2021-05-29] MEDS: amLODIPine BESYLATE 10 MG TABLET GT SCH (09:00)
--- NOTE | 2021-05-29 12:13 | NUR ---
Patient accepted at [facility] room 205A-number for report . Macie Holley, friend of patient, agreed to transfer. [facility] will transport at 6:30 PM by [facility] ambulance.
--- NOTE | 2021-05-29 17:23 | NUR ---
Report Notes: [facility]
--- NOTE | 2021-05-29 17:30 | NUR ---
SPOKE TO FAMILY: CONFIRMED WITH PATIENT'S FAMILY ELIF LEON WITH HIS JENN AGREED TO [facility] SWARTZ [facility] PHONE WITNESS.
--- NOTE | 2021-05-29 18:51 | NUR ---
TRANSFER TO [facility]-TELE: TRANSFER PACKETS GIVEN TO CCT STAFF.REPORT GIVEN TO [facility] NURSE.NO BELONGINGS.G TUBE CLAMPED. KEPT CENTRAL LINE SALINE LOCK AND KEITH ORDERED.[facility] UNIT 326 TRANSPORTED PATIENT TO [facility]-TELEMETRY IN STABLE CONDITION.
== END 2021-05-29 19:17 | DRG 871 ==
LOC: SED 07:33 → SIC 09:35
PROVIDERS: ADMIT Family Medicine; ATTEND Family Medicine
PROC: 5A1945Z Respiratory Ventilation, 24-96 Consecutive Hours (ICD-10-PCS; principal; 2021-05-26)
PROC: 02HV33Z Insertion of Infusion Device into Superior Vena Cava, Percutaneous Approach (ICD-10-PCS; 2021-05-26)
DX: A41.9 Sepsis, unspecified organism (principal); R65.21 Severe sepsis with septic shock; J96.21 Acute and chronic respiratory failure with hypoxia; N39.0 Urinary tract infection, site not specified; E87.1 Hypo-osmolality and hyponatremia; S06.9X0A Unspecified intracranial injury without loss of consciousness, initial encounter; G40.909 Epilepsy, unspecified, not intractable, without status epilepticus; R13.10 Dysphagia, unspecified; X58.XXXA Exposure to other specified factors, initial encounter; N31.9 Neuromuscular dysfunction of bladder, unspecified; Z20.822 Contact with and (suspected) exposure to COVID-19; Z79.899 Other long term (current) drug therapy; Z87.820 Personal history of traumatic brain injury; Z93.0 Tracheostomy status; Z93.1 Gastrostomy status; Y93.89 Activity, other specified; Y92.89 Other specified places as the place of occurrence of the external cause; Y99.8 Other external cause status
CPT/HCPCS: 36415; 71045; 80048; 80053; 81000; 82550; 83605; 84484; 85025; 85610-TC; 85730-TC; 86140; 87040-TC; 87081; 87086; 93005; 94002; 94003; 94640; 96361; 96365; 96367; 99285; J0696; J1650; J2185; J3480; J7050

== ENCOUNTER 2021-09-26 17:05 | Inpatient (IN) | payer OTHER, MEDICAID, SELFPAY ==
[~2021-09-26] VITALS: Ht 167.6 cm; Wt 81.6 kg
[~2021-09-26 17:05] MED LIST changes: -ATII2 IM; -CRAN1CAP6 GT; +DOCU-156 PO; -FERR15DR26 GT; -MOM GT; +NOR10 PO; +Uti-stat GT; +sodium chloride GT
[2021-09-26 17:08] VITALS: BP_SYST 132
--- NOTE | 2021-09-26 17:09 | NUR ---
PT RONIT FROM [facility] FOR URINARY RETENTION. PT OF DR DAMON, CHRONIC TRACH TO VENT, AC MODE, RATE-14, TV-500, PEEP-5, TRACH-PORTEX, SIZE 8. G-TUBE IN PLACE-CLAMPED., NON VERBAL, AWAKE, RESPONSIVE TO TACTILE STIMULI. CONTRACTED TO UPPER AND LOWER BODY. PER REPORT, URINE RENTENTION AFTER DISCONTINUING KEITH CATH. UNKNOWN DATE AND TIME. LE ARREDONDO MADE AWARE.
--- NOTE | 2021-09-26 17:16 | NUR ---
BLADDER SCAN- 550CC, DR TIFF MAR.
--- NOTE | 2021-09-26 17:32 | NUR ---
ATTEMPTED TO INSERT A 16FR KEITH CATH, BUT UNSUCCESFUL. SECOND RNRADHA ALSO ATTEMPTED AND WAS UNSUCCESFUL. DR MATTHEW INFORMED, WAITING FOR LABS TO COME BACK TO CALL UROLOGIST.
[2021-09-26] MEDS ORDERED: ACETAMINOPHEN 650 MG SUPP.RECT RC ONE ×2 (17:43→18:00)
[2021-09-26] MEDS ORDERED: ACETAMINOPHEN 325 MG SUPP.RECT RC ONE ×2 (17:43→18:00)
[2021-09-26 19:15] LABS: BASOPHILS % (AUTO) 0.2 % (0.0-2.0); HEMATOCRIT 34.9 % (36-54); HEMOGLOBIN 12.1 g/dL (14.0-18.0); LYMPHOCYTES # (AUTO) 2.1 K/uL (1.0-5.5); LYMPHOCYTES % (AUTO) 13.3 % (20.5-51.5); MEAN CORPUSCULAR HEMOGLOBIN 30 pg (27-31); MEAN CORPUSCULAR HGB CONC 35 % (32-36); MEAN CORPUSCULAR VOLUME 86 fL (79.0-98.0); MONOCYTES # (AUTO) 2.4 K/uL (0.0-1.0); MONOCYTES % (AUTO) 15.2 % (1.7-9.3); NEUTROPHILS # (AUTO) 11.1 K/uL (1.8-7.7); NEUTROPHILS % (AUTO) 71.3 % (40.0-70.0); PLATELET COUNT (AUTO) 381 K/uL (130-430); RED BLOOD CELL COUNT(AUTO) 4.05 MIL/uL (4.2-6.2); RED CELL DISTRIBUTION WIDTH 14.3 % (9.0-15.0); WHITE BLOOD COUNT (AUTO) 15.5 K/uL (4.8-10.8)
[2021-09-26 19:17] LABS: CALCIUM 9.7 mg/dL (8.4-11.0); CREATININE 0.94 mg/dL (0.55-1.30); POTASSIUM 4.6 mmol/L (3.5-5.1)
[2021-09-26 19:22] LABS: INR 0.9 (0.80-1.20); PROTHROMBIN TIME 10.1 SECS (9.5-12.5)
[2021-09-26 19:23] LABS: ALBUMIN 3.2 g/dL (3.4-4.8); TOTAL BILIRUBIN 0.3 mg/dL (0.0-1.0)
--- NOTE | 2021-09-26 19:35 | NUR ---
rt notes assisted in transporting patient to cat scan. accompanied by RN and production control technologist. patient on ventilator. trach tube secure patent. patient sating 96%. no respiratory distress noted.
--- NOTE | 2021-09-26 19:40 | NUR ---
Patient transported to radiology via GURNEY, accompanied by SUPERVISOR GAME FARM, RN, AND RT.
--- NOTE | 2021-09-26 19:48 | NUR ---
Patient transported BACK FROM radiology via GURNEY, accompanied by LOGGING TRUCK DRIVER, RN, AND RT.
[2021-09-26] MEDS ORDERED: NACL 0.9% 1,000 ML IV ONE (21:15)
[2021-09-26] MEDS ORDERED: PIPERACILLIN/TAZO 3.375 GM in NS 50 ML IV ONE (21:15)
[2021-09-26] MEDS ORDERED: VANCOMYCIN HCL 1,000 MG in NS 250 ML IV ONE (21:15)
--- NOTE | 2021-09-26 21:17 | NUR ---
Patient will be admitted to [facility]. Admitted to ICU unit. PENDING ROOM ASSIGNMENT. Belongings list completed. Complete and up to date summary report printed. SBAR report to be given at bedside with opportunity for questions.
[2021-09-26] MEDS ORDERED: VANCOMYCIN HCL 1000 MG/VIAL IV ONE (21:26)
[2021-09-26] MEDS ORDERED: PIPERACILLIN/TAZOBACTAM 3.375 GM/VIAL (ZOSYN) IV ONE (21:26)
[2021-09-26] MEDS ORDERED: ACETAMINOPHEN 650 MG/20.3 ML UDC GT PRN ×2 (21:45)
[2021-09-26] MEDS ORDERED: VALPROIC ACID ORAL SYRUP 250 MG/5 ML UDC GT SCH (21:45)
[2021-09-26] MEDS: CEFEPIME 1 GM in D5W 50 ML IV SCH (21:45)
[2021-09-26] MEDS ORDERED: [UNRECOGNIZED DRUG - OTHER] GT SCH (21:45)
[2021-09-26] MEDS ORDERED: ALBUTEROL SULFATE 0.083% 2.5 MG/3 ML VIAL.NEB INH PRN ×2 (21:45)
[2021-09-26] MEDS ORDERED: BISACODYL 10 MG/SUPPOSITORY RC PRN ×2 (21:45→22:00)
[2021-09-26] MEDS ORDERED: LACTOBACILLUS ACIDOPHILUS GT SCH (21:45)
[2021-09-26] MEDS: METOPROLOL TARTRATE 25 MG TABLET GT SCH (21:45)
[2021-09-26] MEDS ORDERED: LORazepam 2 MG/ML VIAL IVP PRN (21:45)
[2021-09-26] MEDS: LevETIRAcetam 500 MG/5 ML UDC ORAL LIQUID GT SCH (21:45)
[2021-09-26] MEDS ORDERED: BISACODYL 10 MG/SUPPOSITORY RC ONE (22:00)
[2021-09-26] MEDS ORDERED: MINERAL OIL 133 ML ENEMA RC ONE (22:00)
--- NOTE | 2021-09-26 22:12 | NUR ---
DR. BISHOP AT BEDSIDE FOR EVALUATION.
--- NOTE | 2021-09-26 22:12 | NUR ---
SING ON THE PHONE WITH MD FOWLER (UROLOGY).
[2021-09-26] MEDS: LACTOBACILLUS RHAMNOSUS GG 1 CAP CAPSULE GT SCH (22:13)
--- NOTE | 2021-09-26 22:20 | NUR ---
DR. CEBALLOS AT [facility]. NOTIFIED MD ER STAFF IS UNABLE TO START KEITH. NOTIFIED MD ABOUT MD FOWLER ARRIVING IN THE MORNING TO DO KEITH.
--- NOTE | 2021-09-26 23:00 | NUR ---
DR. FOWLER AT BEDSIDE TO INSERT KEITH CATHETER. # 14 FR Keith COUDAE catheter with use of sterile technique. Immediate return of 500 cc YELLOW HIGH SEDIMENT urine noted. Bedside drainage bag placed below level of bladder. Urine sample collected and sent to lab. Pt tolerated procedure WELL. Patient unable to toilet self.
[2021-09-26] MEDS: NACL 0.9% 1,000 ML IV SCH (23:10)
[2021-09-26] MEDS ORDERED: CEFEPIME 1 GM/VIAL (MAXIPIME) ONE (23:11)
[2021-09-26 23:50] VITALS: BP_SYST 153
--- NOTE | 2021-09-26 23:50 | NUR ---
URINE SPECIMEN SENT TO LAB.
[2021-09-27] VITALS (34 sets, daily range): BP systolic 92–121
--- NOTE | 2021-09-27 | NUR ---
KEITH EMPTIED ABOUT 1000CC OF YELLOW URINE.
--- NOTE | 2021-09-27 00:12 | NUR ---
Transfer to ICU via ACLS protocol. Licensed nurse present. IV present no signs or symptoms of infiltration.
--- NOTE | 2021-09-27 00:15 | NUR ---
rt notes assisted in transferring patient to the ICU bed #3. accompanied by RN and EMT. patient on ventilator. trach tube secure patent. patient placed on transport monitor. patient sating 95% to 96%. no respiratory distress noted.
[2021-09-27 00:18] LABS: BILIRUBIN,URINE NEGATIVE (NEGATIVE); BLOOD, URINE 3+ (NEGATIVE); CLARITY/URINE TURBID (CLEAR); COLOR,URINE YELLOW (YELLOW); GLUCOSE,URINE NEGATIVE (NEGATIVE); KETONES,URINE TRACE (NEGATIVE); LEUKOCYTE ESTERASE ,URINE 3+ (NEGATIVE); NITRITE, URINE NEGATIVE (NEGATIVE); PROTEIN URINE 2+ (NEGATIVE); UROBILINOGEN,URINE 0.2 (0.2-1.0)
[2021-09-27 00:30] LABS: BACTERIA,URINE MANY /HPF (None Seen); RBC,URINE 20-50 /HPF (0-3); WBC,URINE >100 /HPF (0-3)
--- NOTE | 2021-09-27 00:38 | NUR ---
Admission Patient is admitted to ICU bed 3. Patient is contracted and trached to vent. Patient's vitals are stable. No signs or symptoms of distress.
[2021-09-27] MEDS: LANSOPRAZOLE 30 MG CAPSULE.DR GT SCH ×2 (08:00→20:46)
[2021-09-27] MEDS: LACTOBACILLUS RHAMNOSUS GG 1 CAP CAPSULE GT SCH ×2 (08:00→20:43)
--- NOTE | 2021-09-27 08:00 | NUR ---
PATIENT OPENS EYES, BUT DOES NOT TRACK. ON VENT. IV ON RIGHT AC, #22, INFUSING NS AT 75ML/HR. ST ON MONITOR. CALL LIGHT IN PLACE, BED LOCKED AT THE LOWEST POSITION, SZ PADS ON. WILL CONTINUE TO MONITOR.
[2021-09-27] MEDS: LACTULOSE 20 GM/30 ML UDC GT SCH ×2 (08:01→20:45)
[2021-09-27] MEDS: LevETIRAcetam 500 MG/5 ML UDC ORAL LIQUID GT SCH ×2 (08:01→20:54)
[2021-09-27] MEDS: amLODIPine BESYLATE 10 MG TABLET PO SCH (08:02)
[2021-09-27] MEDS: CHLORHEXIDINE GLUCONATE 15 ML/DOSE, 480 ML MM SCH ×2 (08:02→20:50)
[2021-09-27] MEDS: MULTIVITAMINS TAB 1 TABLET GT SCH (08:02)
[2021-09-27] MEDS: CEFEPIME 1 GM in D5W 50 ML IV SCH ×2 (08:03→20:46)
[2021-09-27] MEDS: METOPROLOL TARTRATE 25 MG TABLET GT SCH ×2 (09:00→20:49)
--- NOTE | 2021-09-27 09:59 | NUR ---
Nutrition Update Broderick Scale 12 noted. Pt admitted for sepsis. Diet: Jevity 1.5 at 50 ml/hr, Free Water Flush: 50 via GT BMI: 29.1 kg/m2 RD to follow per nutrition care standards.
[2021-09-27] MEDS ORDERED: NACL 0.9% 1,000 ML IV ONE (10:15)
[2021-09-27] MEDS: NACL 0.9% 1,000 ML IV SCH ×2 (11:01→20:50)
[2021-09-27] MEDS: DOCUSATE SODIUM 100 MG CAPSULE PO SCH ×2 (11:01→20:45)
--- NOTE | 2021-09-27 13:00 | NUR ---
Dr. Abdi at bedside. Orders are given. Will be carried out.
[2021-09-27] MEDS ORDERED: NOREPINEPHRINE BITARTRATE 4 MG in D5W 246 ML IV PRN (13:15)
--- NOTE | 2021-09-27 14:15 | NUR ---
Dietitian Recommendations * Recommend Jevity 1.5 at 65 ml/hr (goal rate), Free Water Flush: 200 ml Q4h via GT Provides: 2340 kcal/day, 100 gm protein/day, and 2386 ml free water/day Meets: 97% of upper end of estimated caloric needs and 96% of lower end of estimated protein needs LP, RD Please refer to Nutrition Assessment for details. Addendum: 09/27/21 at [address] Amended: Links added.
--- NOTE | 2021-09-27 16:50 | NUR ---
Consent obtained for PICC line; order is printed out to house sup, but states the PICC nurse is busy with his schedule today and PICC placement will be done tomorrow.
[2021-09-27 17:43] LABS: BASOPHILS # (AUTO) 0.1 K/uL (0.0-0.2); BASOPHILS % (AUTO) 0.3 % (0.0-2.0); EOSINOPHILS # (AUTO) 0.1 K/uL (0.0-0.4); EOSINOPHILS % (AUTO) 0.7 % (0.0-4.0); HEMOGLOBIN 11.1 g/dL (14.0-18.0); LYMPHOCYTES # (AUTO) 2.6 K/uL (1.0-5.5); LYMPHOCYTES % (AUTO) 13.3 % (20.5-51.5); MEAN CORPUSCULAR HEMOGLOBIN 30 pg (27-31); MEAN CORPUSCULAR HGB CONC 34 % (32-36); MEAN CORPUSCULAR VOLUME 88 fL (79.0-98.0); MONOCYTES # (AUTO) 3.1 K/uL (0.0-1.0); MONOCYTES % (AUTO) 15.7 % (1.7-9.3); NEUTROPHILS # (AUTO) 13.7 K/uL (1.8-7.7); PLATELET COUNT (AUTO) 296 K/uL (130-430); RED BLOOD CELL COUNT(AUTO) 3.73 MIL/uL (4.2-6.2); RED CELL DISTRIBUTION WIDTH 14.1 % (9.0-15.0); WHITE BLOOD COUNT (AUTO) 19.5 K/uL (4.8-10.8)
[2021-09-27 18:28] LABS: ALBUMIN 2.5 g/dL (3.4-4.8); CALCIUM 8.9 mg/dL (8.4-11.0); CREATININE 0.57 mg/dL (0.55-1.30); PHOSPHORUS 3.6 mg/dL (2.7-4.5); POTASSIUM 3.9 mmol/L (3.5-5.1); TOTAL BILIRUBIN 0.4 mg/dL (0.0-1.0)
[2021-09-27] MEDS: ENOXAPARIN SODIUM 40 MG/0.4 ML SYRINGE SUBCUT SCH (20:44)
[2021-09-27] MEDS: SODIUM CHLORIDE 500 MG TABLET GT SCH (20:45)
[2021-09-27] MEDS: SENNOSIDES 8.6 MG TABLET GT SCH (20:45)
[2021-09-27] MEDS: [UNRECOGNIZED DRUG - OTHER] GT SCH (21:00)
[2021-09-28] VITALS (36 sets, daily range): BP systolic 92–125
[2021-09-28] MEDS: NACL 0.9% 1,000 ML IV SCH ×3 (03:39→17:33)
[2021-09-28 06:46] LABS: PROTHROMBIN TIME 10.5 SECS (9.5-12.5)
[2021-09-28] MEDS: LACTOBACILLUS RHAMNOSUS GG 1 CAP CAPSULE GT SCH ×2 (08:25→21:09)
[2021-09-28] MEDS: LACTULOSE 20 GM/30 ML UDC GT SCH ×2 (08:25→21:09)
[2021-09-28] MEDS: MULTIVITAMINS TAB 1 TABLET GT SCH (08:26)
[2021-09-28] MEDS: METOPROLOL TARTRATE 25 MG TABLET GT SCH ×2 (08:26→21:10)
[2021-09-28] MEDS: LevETIRAcetam 500 MG/5 ML UDC ORAL LIQUID GT SCH ×2 (08:27→21:09)
[2021-09-28] MEDS: amLODIPine BESYLATE 10 MG TABLET PO SCH (08:28)
[2021-09-28] MEDS: CEFEPIME 1 GM in D5W 50 ML IV SCH ×2 (08:31→21:08)
[2021-09-28] MEDS: [UNRECOGNIZED DRUG - OTHER] GT SCH ×2 (08:32→21:00)
[2021-09-28] MEDS: CHLORHEXIDINE GLUCONATE 15 ML/DOSE, 480 ML MM SCH ×2 (08:33→21:11)
[2021-09-28] MEDS: LANSOPRAZOLE 30 MG CAPSULE.DR GT SCH ×2 (08:34→21:09)
[2021-09-28 08:49] LABS: ALBUMIN 2.4 g/dL (3.4-4.8); CALCIUM 8.2 mg/dL (8.4-11.0); CREATININE 0.28 mg/dL (0.55-1.30); POTASSIUM 3.5 mmol/L (3.5-5.1); TOTAL BILIRUBIN 0.1 mg/dL (0.0-1.0)
[2021-09-28] MEDS: DOCUSATE SODIUM 100 MG CAPSULE PO SCH ×2 (09:00→21:09)
[2021-09-28] MEDS: SODIUM CHLORIDE 500 MG TABLET GT SCH ×2 (09:36→21:10)
[2021-09-28 09:39] LABS: BASOPHILS # (AUTO) 0.1 K/uL (0.0-0.2); BASOPHILS % (AUTO) 0.7 % (0.0-2.0); EOSINOPHILS # (AUTO) 0.2 K/uL (0.0-0.4); EOSINOPHILS % (AUTO) 1.6 % (0.0-4.0); HEMOGLOBIN 10.3 g/dL (14.0-18.0); LYMPHOCYTES # (AUTO) 1.6 K/uL (1.0-5.5); MEAN CORPUSCULAR HEMOGLOBIN 30 pg (27-31); MEAN CORPUSCULAR HGB CONC 33 % (32-36); MEAN CORPUSCULAR VOLUME 89 fL (79.0-98.0); MONOCYTES # (AUTO) 1.6 K/uL (0.0-1.0); MONOCYTES % (AUTO) 12.8 % (1.7-9.3); NEUTROPHILS # (AUTO) 8.9 K/uL (1.8-7.7); NEUTROPHILS % (AUTO) 71.9 % (40.0-70.0); PLATELET COUNT (AUTO) 307 K/uL (130-430); RED BLOOD CELL COUNT(AUTO) 3.48 MIL/uL (4.2-6.2); RED CELL DISTRIBUTION WIDTH 14.2 % (9.0-15.0); WHITE BLOOD COUNT (AUTO) 12.3 K/uL (4.8-10.8)
[2021-09-28] MEDS: SENNOSIDES 8.6 MG TABLET GT SCH (21:09)
[2021-09-28] MEDS: ENOXAPARIN SODIUM 40 MG/0.4 ML SYRINGE SUBCUT SCH (21:13)
[2021-09-29] VITALS (31 sets, daily range): BP systolic 109–147
[2021-09-29] MEDS: NACL 0.9% 1,000 ML IV SCH ×3 (04:02→10:00)
[2021-09-29 07:04] LABS: BASOPHILS # (AUTO) 0.1 K/uL (0.0-0.2); BASOPHILS % (AUTO) 0.7 % (0.0-2.0); EOSINOPHILS # (AUTO) 0.2 K/uL (0.0-0.4); EOSINOPHILS % (AUTO) 2.7 % (0.0-4.0); HEMATOCRIT 34.2 % (36-54); HEMOGLOBIN 11.3 g/dL (14.0-18.0); LYMPHOCYTES # (AUTO) 2.7 K/uL (1.0-5.5); LYMPHOCYTES % (AUTO) 29.5 % (20.5-51.5); MEAN CORPUSCULAR HEMOGLOBIN 30 pg (27-31); MEAN CORPUSCULAR HGB CONC 33 % (32-36); MEAN CORPUSCULAR VOLUME 90 fL (79.0-98.0); MONOCYTES # (AUTO) 1.5 K/uL (0.0-1.0); MONOCYTES % (AUTO) 16.8 % (1.7-9.3); NEUTROPHILS # (AUTO) 4.6 K/uL (1.8-7.7); NEUTROPHILS % (AUTO) 50.3 % (40.0-70.0); PLATELET COUNT (AUTO) 293 K/uL (130-430); RED BLOOD CELL COUNT(AUTO) 3.82 MIL/uL (4.2-6.2); RED CELL DISTRIBUTION WIDTH 14.3 % (9.0-15.0); WHITE BLOOD COUNT (AUTO) 9.1 K/uL (4.8-10.8)
--- NOTE | 2021-09-29 07:51 | NUR ---
RECEIVED PT FROM MAXIME MORROW. PT IS AAOX1 TO SELF, NONVERBAL, UNABLE TO FOLLOW COMMANDS. NSR. TRACH IN PLACE SIZE 8.0, VENT SETTINGS AC VC TV 500, RR 14, FI02 30, PEEP 5. LUNG SOUNDS CTA, DIMINISHED BILATERALLY. GTUBE IN PLACE. SITE WNL, TF JEVITYJ 1.5 RUNNING AT 65ML/HOUR WITH FWF 200CC A [address] ASPIRATION PRECAUTIONS IN PLACE. ABDOMEN SOFT, NONTENDER, NONDISTENDED. BOWEL SOUNDS ACTIVE X4 QUADS. NO REPORTS OF VOMITING, DIARRHEA, CONSTIPATION. KEITH CATH IN PLACE DRAINING CLEAR YELLOW URINE TO GRAVITY. STAT LOCK IN PLACE. SKIN CDI WITH BUE AND BLE DRYNESS. DISTAL PULSE MODERATE, NO EDEMA. CAP REFILL < 3 SECS. PT HAS JONATHAN PICC LINE AND RAC [address], FLUSHED, PATENT. IVF NS RUNNING AT 100ML/HOUR. IV SITE WNL, DRESSINGS CDI. PT WILL BE TURNED AND REPOSITIONED Q 2 HOURS AND PRN.
[2021-09-29 08:55] LABS: ALBUMIN 2.5 g/dL (3.4-4.8); CALCIUM 8.7 mg/dL (8.4-11.0); CREATININE 0.38 mg/dL (0.55-1.30); POTASSIUM 3.8 mmol/L (3.5-5.1); TOTAL BILIRUBIN 0.1 mg/dL (0.0-1.0)
[2021-09-29] MEDS: [UNRECOGNIZED DRUG - OTHER] GT SCH ×2 (09:00→21:00)
[2021-09-29] MEDS: LACTULOSE 20 GM/30 ML UDC GT SCH ×2 (09:49→23:29)
[2021-09-29] MEDS: LevETIRAcetam 500 MG/5 ML UDC ORAL LIQUID GT SCH ×2 (09:49→22:30)
[2021-09-29] MEDS: MULTIVITAMINS TAB 1 TABLET GT SCH (09:51)
[2021-09-29] MEDS: LACTOBACILLUS RHAMNOSUS GG 1 CAP CAPSULE GT SCH ×2 (09:51→23:28)
[2021-09-29] MEDS: amLODIPine BESYLATE 10 MG TABLET PO SCH (09:51)
[2021-09-29] MEDS: SODIUM CHLORIDE 500 MG TABLET GT SCH ×2 (09:51→22:30)
[2021-09-29] MEDS: METOPROLOL TARTRATE 25 MG TABLET GT SCH ×2 (09:52→22:30)
[2021-09-29] MEDS: DOCUSATE SODIUM 100 MG CAPSULE PO SCH ×2 (09:52→23:34)
[2021-09-29] MEDS: LANSOPRAZOLE 30 MG CAPSULE.DR GT SCH ×2 (09:52→23:30)
[2021-09-29] MEDS: CHLORHEXIDINE GLUCONATE 15 ML/DOSE, 480 ML MM SCH ×2 (09:53→22:30)
[2021-09-29] MEDS: CEFEPIME 1 GM in D5W 50 ML IV SCH ×2 (09:58→22:30)
--- NOTE | 2021-09-29 10:42 | NUR ---
DR. BOYLE MET WITH AND ASSESSED PT. NO NEW ORDERS. PT WILL STAY IN ICU FOR THE DAY TO BE MONITORED.
--- NOTE | 2021-09-29 14:30 | NUR ---
SCHEDULED MEDS GIVEN AND TOLERATED WELL. NO S/S OF RESP DISTRESS, PAIN OR DISCOMFORT. PT RESTING COMFORTABLY.
--- NOTE | 2021-09-29 16:30 | NUR ---
PT GIVEN BEDBATH, LINEN AND GOWN CHANGE, ORAL CARE AND KEITH CATH CARE. ASPIRATION PRECATIONS MAINTAINED.
--- NOTE | 2021-09-29 19:36 | NUR ---
ALL CARE ENDORSED TO MAXIME SCHAFFER. ALL QUESTIONS AND CONCERNS ADDRESSED.
[2021-09-29] MEDS: SENNOSIDES 8.6 MG TABLET GT SCH (22:30)
[2021-09-29] MEDS: ENOXAPARIN SODIUM 40 MG/0.4 ML SYRINGE SUBCUT SCH (23:36)
[2021-09-30] VITALS (30 sets, daily range): BP systolic 95–138
[2021-09-30] MEDS: NACL 0.9% 1,000 ML IV SCH ×2 (03:34→11:34)
--- NOTE | 2021-09-30 07:15 | NUR ---
RECEIVED PT FROM MAXIME WATKINS. PT IS AAOX1 TO SELF ONLY, UNABLE TO VERBALIZE NEEDS OR FOLLOW COMMANDS. TELE 3 READING NSR. PT HAS TRACH TO VENT SETTINGS AC VC TV500, RR14, FI02 30%, PEEP 5. LUNG SOUNDS CTA. ABDOMEN SOFT, ROUND, NONTENDER, NONDISTENDED. NO BM ON PRIOR SHIFT. GTUBE IN PLACE TO L ABDOMEN, SITE CDI. PT RECEIVING JEVITY 1.5 RUNNING AT 65ML/HOUR WITH 200ML FWF Q [address] PRECAUTIONS IN PLACE. NO RESIDUAL NOTED. SKIN CDI. DISTAL PULSES MODERATE, SKIN WARM, NO EDEMA. JONATHAN PICC LINE 2 LUMENS, JONATHAN IV CATH 18 G, AND R CHEST IV CATH 22G, ALL FLUSHED, PATENT, WNLS, DRESSINGS CDI. KEITH CATH IN PLACE DRAINING LIGHT YELLOW URINE TO GRAVITY. STAT LOCK IN PLACE. NO S/S OF PAIN NOTED.
[2021-09-30] MEDS: [UNRECOGNIZED DRUG - OTHER] GT SCH ×2 (09:00→21:02)
[2021-09-30] MEDS: LACTULOSE 20 GM/30 ML UDC GT SCH ×2 (09:54→20:59)
[2021-09-30] MEDS: DOCUSATE SODIUM 100 MG CAPSULE PO SCH ×2 (09:54→21:00)
[2021-09-30] MEDS: LACTOBACILLUS RHAMNOSUS GG 1 CAP CAPSULE GT SCH ×2 (09:54→21:00)
[2021-09-30] MEDS: MULTIVITAMINS TAB 1 TABLET GT SCH (09:54)
[2021-09-30] MEDS: amLODIPine BESYLATE 10 MG TABLET PO SCH (09:55)
[2021-09-30] MEDS: LevETIRAcetam 500 MG/5 ML UDC ORAL LIQUID GT SCH ×2 (09:56→20:59)
[2021-09-30] MEDS: CEFEPIME 1 GM in D5W 50 ML IV SCH ×2 (09:57→20:59)
[2021-09-30] MEDS: METOPROLOL TARTRATE 25 MG TABLET GT SCH ×2 (10:05→21:01)
[2021-09-30] MEDS: LANSOPRAZOLE 30 MG CAPSULE.DR GT SCH ×2 (10:05→21:00)
[2021-09-30] MEDS: SODIUM CHLORIDE 500 MG TABLET GT SCH ×2 (10:07→20:59)
[2021-09-30] MEDS: CHLORHEXIDINE GLUCONATE 15 ML/DOSE, 480 ML MM SCH ×2 (10:08→21:02)
[2021-09-30 13:38] LABS: BASOPHILS # (AUTO) 0.1 K/uL (0.0-0.2); BASOPHILS % (AUTO) 1.1 % (0.0-2.0); EOSINOPHILS # (AUTO) 0.5 K/uL (0.0-0.4); EOSINOPHILS % (AUTO) 5.8 % (0.0-4.0); HEMATOCRIT 31.9 % (36-54); HEMOGLOBIN 10.6 g/dL (14.0-18.0); LYMPHOCYTES # (AUTO) 2.3 K/uL (1.0-5.5); LYMPHOCYTES % (AUTO) 26.6 % (20.5-51.5); MEAN CORPUSCULAR HEMOGLOBIN 30 pg (27-31); MEAN CORPUSCULAR HGB CONC 33 % (32-36); MEAN CORPUSCULAR VOLUME 89 fL (79.0-98.0); MONOCYTES # (AUTO) 1.3 K/uL (0.0-1.0); NEUTROPHILS # (AUTO) 4.4 K/uL (1.8-7.7); NEUTROPHILS % (AUTO) 51.5 % (40.0-70.0); PLATELET COUNT (AUTO) 335 K/uL (130-430); RED BLOOD CELL COUNT(AUTO) 3.58 MIL/uL (4.2-6.2); RED CELL DISTRIBUTION WIDTH 14.4 % (9.0-15.0); WHITE BLOOD COUNT (AUTO) 8.6 K/uL (4.8-10.8)
[2021-09-30 13:43] LABS: ALBUMIN 2.4 g/dL (3.4-4.8); CALCIUM 8.3 mg/dL (8.4-11.0); CREATININE 0.47 mg/dL (0.55-1.30); TOTAL BILIRUBIN 0.2 mg/dL (0.0-1.0)
--- NOTE | 2021-09-30 13:58 | NUR ---
DR. BOYLE MET WITH AND ASSESSED PT. RECEIVED ORDER TO CHANGE IVF RATE TO 75ML/HOUR. REPORTED LABS HGB 10.6, NA 135, B/C , NNOS.
--- NOTE | 2021-09-30 15:00 | NUR ---
PT GIVEN PARTIAL BEDBATH AND LINEN CHANGE, KEITH CATH CARE, PERNIEAL CARE, ORAL CARE. ASPIRATION PRECAUTIONS MAINTAINED.
--- NOTE | 2021-09-30 17:02 | NUR ---
Nutrition F/U RD reviewed pt's current EMR record including diet Hx, physician notes, nursing notes, pertinent labs/meds/procedures, care trends, and care activity. Admission Dx: Sepsis PMH: TBI, seizure disorder, chronic respiratory failure, BPH, and neurogenic bladder per physician notes SARS-CoV-2 Ag (Rapid) Negative 09/26 Current Diet Order/Nutrition Support: Jevity 1.5 at 65 ml/hr (goal), Free Water Flush: 200 ml Q4h via GT Subjective Info: RD visited pt at bedside. TF Jevity 1.5 was seen infusing as per physician order. 390 ml infused, providing 585 kcal. RN reported that pt has been tolerating TF fine w. about 150-170 ml GRV today. RN stated NS was adjusted from 125 ml/hr to 75 ml/hr today by covering attending physician. Per EMR review, TF Rate: 65 ml 09/30; GRV: 0 ml 09/30; TF Intakes: 650 ml 09/30; abd is distended w/ active bowel sounds; last BM x1 09/27. Current TF prescription is adequate/appropriate. Pertinent Medications: lactulose, MVI, colace, culturelle, lovenox, senna, lopressor, keppra Pertinent Labs: WBC 9.1 WNL, BUN 9 WNL, BG 104 H, Na 137 WNL Height (Feet) 5 feet Height (Inches) 6.00 inches Weight (Pounds) 180 pounds -- stable since 09/27 Weight (Calculated Kilograms) 81.647717 kilograms Patient Weight 81.647 kg Body Mass Index 29.05 kg/m2 %IBW 127 [place]/Adjusted Body Weight IBW: 142#/65 kg. Adj IBW (obesity): 152#/69 kg Recent Weight Change Unable to verify Food Allergies Unable to verify Estimated Energy Expenditure (kcals/day) 8044-4672 kcal/day (30-35 kcal/kg Adj IBW d/t sepsis) Estimated Protein Required (g/day) 104-138 gm/day (1.5-2 gm/kg Adj IBW d/t sepsis) Estimated Fluid Required (l/day) 2-2.4 L/day (1 ml/kcal/day for maintenance) Problem/Etiology/Signs/Symptoms Increased nutritional needs related to metabolic demands as evidenced by estimated nutritional requirements for sepsis. *ongoing Expected Outcomes/Goals - Monitor tolerance to EN support w/ goal of pt meeting at least 80% of estimated nutritional needs, labs trending WNL, normal GI function, and skin integrity/wt maintenance Dietitian Recommendations * Recommend Jevity 1.5 at 65 ml/hr (goal rate), Free Water Flush: 200 ml Q4h via GT Provides: 2340 kcal/day, 100 gm protein/day, and 2386 ml free water/day Meets: 97% of upper end of estimated caloric needs and 96% of lower end of estimated protein needs Follow Up High Risk: F/U in 2-3 days
--- NOTE | 2021-09-30 17:07 | NUR ---
Dietitian Recommendations * Recommend Jevity 1.5 at 65 ml/hr (goal rate), Free Water Flush: 200 ml Q4h via GT Provides: 2340 kcal/day, 100 gm protein/day, and 2386 ml free water/day Meets: 97% of upper end of estimated caloric needs and 96% of lower end of estimated protein needs LP, RD Please refer to Nutrition F/U for details.
--- NOTE | 2021-09-30 19:19 | NUR ---
ENDORSED ALL CARE TO MAXIME CHRISTENSEN. ALL QUESTIONS AND CONCERNS ADDRESSED.
[2021-09-30] MEDS: SENNOSIDES 8.6 MG TABLET GT SCH (21:00)
[2021-09-30] MEDS: ENOXAPARIN SODIUM 40 MG/0.4 ML SYRINGE SUBCUT SCH (21:03)
[2021-10-01] VITALS (23 sets, daily range): BP systolic 104–144
[2021-10-01] MEDS: NACL 0.9% 1,000 ML IV SCH ×2 (00:34→12:36)
[2021-10-01 06:34] LABS: BASOPHILS # (AUTO) 0.1 K/uL (0.0-0.2); BASOPHILS % (AUTO) 1.3 % (0.0-2.0); EOSINOPHILS # (AUTO) 0.4 K/uL (0.0-0.4); EOSINOPHILS % (AUTO) 4.7 % (0.0-4.0); HEMATOCRIT 29.4 % (36-54); HEMOGLOBIN 9.7 g/dL (14.0-18.0); LYMPHOCYTES # (AUTO) 2.7 K/uL (1.0-5.5); LYMPHOCYTES % (AUTO) 34.6 % (20.5-51.5); MEAN CORPUSCULAR HEMOGLOBIN 30 pg (27-31); MEAN CORPUSCULAR HGB CONC 33 % (32-36); MEAN CORPUSCULAR VOLUME 90 fL (79.0-98.0); MONOCYTES # (AUTO) 1.2 K/uL (0.0-1.0); MONOCYTES % (AUTO) 15.3 % (1.7-9.3); NEUTROPHILS # (AUTO) 3.5 K/uL (1.8-7.7); NEUTROPHILS % (AUTO) 44.1 % (40.0-70.0); PLATELET COUNT (AUTO) 364 K/uL (130-430); RED BLOOD CELL COUNT(AUTO) 3.27 MIL/uL (4.2-6.2); RED CELL DISTRIBUTION WIDTH 14.3 % (9.0-15.0); WHITE BLOOD COUNT (AUTO) 7.9 K/uL (4.8-10.8)
[2021-10-01 07:02] LABS: ALBUMIN 2.4 g/dL (3.4-4.8); CALCIUM 8.2 mg/dL (8.4-11.0); CREATININE 0.42 mg/dL (0.55-1.30); POTASSIUM 3.9 mmol/L (3.5-5.1); TOTAL BILIRUBIN 0.2 mg/dL (0.0-1.0)
[2021-10-01] MEDS: amLODIPine BESYLATE 10 MG TABLET PO SCH (09:00)
[2021-10-01] MEDS: MULTIVITAMINS TAB 1 TABLET GT SCH (09:00)
[2021-10-01] MEDS: DOCUSATE SODIUM 100 MG CAPSULE PO SCH ×2 (09:00→21:00)
[2021-10-01] MEDS: LevETIRAcetam 500 MG/5 ML UDC ORAL LIQUID GT SCH ×2 (09:00→21:00)
[2021-10-01] MEDS: CHLORHEXIDINE GLUCONATE 15 ML/DOSE, 480 ML MM SCH ×2 (09:00→21:00)
[2021-10-01] MEDS: [UNRECOGNIZED DRUG - OTHER] GT SCH ×2 (09:00→21:00)
[2021-10-01] MEDS: METOPROLOL TARTRATE 25 MG TABLET GT SCH ×2 (09:00→21:00)
[2021-10-01] MEDS: SODIUM CHLORIDE 500 MG TABLET GT SCH ×2 (09:00→21:00)
[2021-10-01] MEDS: LACTOBACILLUS RHAMNOSUS GG 1 CAP CAPSULE GT SCH ×2 (09:00→21:00)
[2021-10-01] MEDS: LANSOPRAZOLE 30 MG CAPSULE.DR GT SCH ×2 (09:00→21:00)
[2021-10-01] MEDS: LACTULOSE 20 GM/30 ML UDC GT SCH ×2 (09:00→21:00)
[2021-10-01] MEDS: CEFEPIME 1 GM in D5W 50 ML IV SCH ×2 (09:00→21:00)
--- NOTE | 2021-10-01 19:30 | NUR ---
RECEIVED FROM DAY SHIFT, ALL QUESTIONS ANSWERED AND PT CARE ASSUMED.
--- NOTE | 2021-10-01 20:00 | NUR ---
ASSESSMENT DONE. PT AWAKE, NON VERBALLY RESPONSIVE AND DOES NOT FOLLOW COMMAND.PT IS CONTRACTED ON ALL EXTREMITIES. TRACH TO VENT WITH SETTING OF 14/500/30/5 SPO2 IS 100%. MINIMUM SECRETION NOTED. MONITOR WITH AFIB, BP WITHIN NORMAL LIMITS. PEG TUBE IN PLACE WITH FEDDING OF JEVITY 1.5 AT 65 CC/HR , TOLERATING WELL. KEITH TO GRAVITY WITH ADEQUATE AMOUNT OF CLEAR YELLOW URINE. VITAL SIGNS STABLE, NO S/S OF DISCOMFORT.
[2021-10-01] MEDS: SENNOSIDES 8.6 MG TABLET GT SCH (21:00)
[2021-10-01] MEDS: ENOXAPARIN SODIUM 40 MG/0.4 ML SYRINGE SUBCUT SCH (21:00)
--- NOTE | 2021-10-01 21:00 | NUR ---
Opening note Received report and assumed care. Patient with eyes opened but not following commands. Vent to trach tolerating settings in AC 14. Gt feeding infusing as per MD orders and tolerating without residuals. Gutiérrez catheter in place and draining to gravity. Right upper arm picc in place and patent. will continue to monitor as per unit protocol.
[2021-10-02] VITALS (29 sets, daily range): BP systolic 71–161
[2021-10-02] MEDS: NACL 0.9% 1,000 ML IV SCH ×2 (01:56→15:23)
[2021-10-02] MEDS: HYDROmorphone 2 MG/ML VIAL IVP PRN ×2 (06:21→23:15)
[2021-10-02 06:51] LABS: EOSINOPHILS # (AUTO) 0.3 K/uL (0.0-0.4); EOSINOPHILS % (AUTO) 4.4 % (0.0-4.0); HEMATOCRIT 26.6 % (36-54); HEMOGLOBIN 8.9 g/dL (14.0-18.0); LYMPHOCYTES # (AUTO) 2.6 K/uL (1.0-5.5); LYMPHOCYTES % (AUTO) 32.9 % (20.5-51.5); MEAN CORPUSCULAR HEMOGLOBIN 30 pg (27-31); MEAN CORPUSCULAR HGB CONC 33 % (32-36); MEAN CORPUSCULAR VOLUME 91 fL (79.0-98.0); MONOCYTES # (AUTO) 1.2 K/uL (0.0-1.0); MONOCYTES % (AUTO) 15.1 % (1.7-9.3); PLATELET COUNT (AUTO) 354 K/uL (130-430); RED BLOOD CELL COUNT(AUTO) 2.94 MIL/uL (4.2-6.2); WHITE BLOOD COUNT (AUTO) 7.8 K/uL (4.8-10.8)
--- NOTE | 2021-10-02 07:20 | NUR ---
INITIAL RECEIVED SHIFT REPORT FROM NIGHT RN FOR CONTINUING OF CARE
[2021-10-02 08:05] LABS: ALBUMIN 2.3 g/dL (3.4-4.8); CALCIUM 8.3 mg/dL (8.4-11.0); CREATININE 0.33 mg/dL (0.55-1.30); POTASSIUM 3.7 mmol/L (3.5-5.1); TOTAL BILIRUBIN 0.1 mg/dL (0.0-1.0)
[2021-10-02] MEDS: [UNRECOGNIZED DRUG - OTHER] GT SCH ×2 (09:00→21:00)
[2021-10-02 09:15] LABS: BASOPHILS % (AUTO) 0.4 % (0.0-2.0); NEUTROPHILS # (AUTO) 3.7 K/uL (1.8-7.7); NEUTROPHILS % (AUTO) 47.2 % (40.0-70.0)
[2021-10-02] MEDS: LACTOBACILLUS RHAMNOSUS GG 1 CAP CAPSULE GT SCH ×2 (09:42→21:00)
[2021-10-02] MEDS: LANSOPRAZOLE 30 MG CAPSULE.DR GT SCH ×2 (09:42→21:00)
[2021-10-02] MEDS: LACTULOSE 20 GM/30 ML UDC GT SCH ×2 (09:42→21:00)
[2021-10-02] MEDS: MULTIVITAMINS TAB 1 TABLET GT SCH (09:44)
[2021-10-02] MEDS: DOCUSATE SODIUM 100 MG CAPSULE PO SCH ×2 (09:44→21:00)
[2021-10-02] MEDS: SODIUM CHLORIDE 500 MG TABLET GT SCH ×2 (09:45→21:00)
[2021-10-02] MEDS: CEFEPIME 1 GM in D5W 50 ML IV SCH ×2 (09:45→21:00)
[2021-10-02] MEDS: METOPROLOL TARTRATE 25 MG TABLET GT SCH ×2 (09:46→21:00)
[2021-10-02] MEDS: LevETIRAcetam 500 MG/5 ML UDC ORAL LIQUID GT SCH ×2 (09:49→21:00)
[2021-10-02] MEDS: amLODIPine BESYLATE 10 MG TABLET PO SCH (10:14)
[2021-10-02] MEDS: CHLORHEXIDINE GLUCONATE 15 ML/DOSE, 480 ML MM SCH ×2 (10:14→21:00)
[2021-10-02] MEDS ORDERED: LIDOCAINE 2%, 20 ML MDV ONE (12:29)
--- NOTE | 2021-10-02 12:35 | NUR ---
Nutrition F/U Admission Dx: Sepsis PMH: TBI, seizure disorder, chronic respiratory failure, BPH, and neurogenic bladder per physician notes SARS-CoV-2 Ag (Rapid) Negative 09/26 Current Diet Order/Nutrition Support: Jevity 1.5 at 65 ml/hr (goal), Free Water Flush: 200 ml Q4h via GT Subjective Info: Pt was seen in ICU, remains on vent, EN was seen hanging but not infusing during visit. RN Ana Maria, was not in another pts room, providing care. Per EMR review, last BM 09/28 x1, abdomen is distended. EN is being tolerated well by pt per RN notes, Broderick scale: 12, no skin issues/edema noted. EN rate: 65ml (10/02), GRV: 100ml (10/02). Current EN regimen remains adequate and appropriate. Pertinent Medications: lactulose, MVI, colace, culturelle, lovenox, senna, keppra Pertinent Labs: 10/02 Na 137WNL, K 3.7WNL, BG 100H, BUN 9WNL, Cre 0.33L Height: 5'6 Weight: 180 pounds/81.308598 kilograms -- stable since 09/27 Body Mass Index: 29.05 kg/m2 [place]/Adjusted Body Weight: 142#/65 kg. Adj IBW (obesity): 152#/69 kg NEW Estimated Energy Expenditure (kcals/day) 6500-9579 kcal/day (30-35 kcal/kg Adj IBW d/t sepsis) vs 1937 (PSU 2003b on vent) Estimated Protein Required (g/day) 104-138 gm/day (1.5-2 gm/kg Adj IBW d/t sepsis) Estimated Fluid Required (l/day) 2-2.4 L/day (1 ml/kcal/day for maintenance) Problem/Etiology/Signs/Symptoms Increased nutritional needs related to metabolic demands as evidenced by estimated nutritional requirements for sepsis. *ongoing Expected Outcomes/Goals - Monitor tolerance to EN support w/ goal of pt meeting at least 80% of estimated nutritional needs, labs trending WNL, normal GI function, and skin integrity/wt maintenance Dietitian Recommendations * Recommend continue Jevity 1.5 at 65 ml/hr (goal rate), Free Water Flush: 200 ml Q4h via GT Provides: 2340 kcal/day, 100 gm protein/day, and 2386 ml free water/day Meets: 97% of upper end of estimated caloric needs and 96% of lower end of estimated protein needs Follow Up High Risk: F/U in 2-3 days
--- NOTE | 2021-10-02 12:45 | NUR ---
SUPRAPUBIC CATH MD FOWLER AT THE BEDSIDE & PLACEMENT OF SUPRA PUBIC CATH
--- NOTE | 2021-10-02 18:21 | NUR ---
SUPRA PUBIC CATH DRAINING 350 ML OF (LIGHT BLOOD-TINGED) URINE
--- NOTE | 2021-10-02 19:54 | NUR ---
ENDORSEMENT SHIFT REPORT GIVEN TO NIGHT RN FOR CONTINUING OF CARE
--- NOTE | 2021-10-02 20:00 | NUR ---
Received report and assumed care. Patient continues to be on vent support to trach. Total care required along with repositioning. Unable to follow commands. IVF infusing to JONATHAN picc line. will continue to monitor.
[2021-10-02] MEDS: ENOXAPARIN SODIUM 40 MG/0.4 ML SYRINGE SUBCUT SCH (21:00)
[2021-10-02] MEDS: SENNOSIDES 8.6 MG TABLET GT SCH (21:00)
[2021-10-03] VITALS (28 sets, daily range): BP systolic 114–144
[2021-10-03] MEDS: NACL 0.9% 1,000 ML IV SCH ×2 (03:25→21:19)
[2021-10-03] MEDS: HYDROmorphone 2 MG/ML VIAL IVP PRN (03:26)
--- NOTE | 2021-10-03 04:30 | NUR ---
Morning care provided. repositioned for comfort. patient tolerated well.
[2021-10-03 06:25] LABS: BASOPHILS # (AUTO) 0.1 K/uL (0.0-0.2); BASOPHILS % (AUTO) 0.9 % (0.0-2.0); EOSINOPHILS # (AUTO) 0.3 K/uL (0.0-0.4); EOSINOPHILS % (AUTO) 2.9 % (0.0-4.0); HEMATOCRIT 27.4 % (36-54); HEMOGLOBIN 9.2 g/dL (14.0-18.0); LYMPHOCYTES # (AUTO) 2.6 K/uL (1.0-5.5); LYMPHOCYTES % (AUTO) 29.3 % (20.5-51.5); MEAN CORPUSCULAR HEMOGLOBIN 30 pg (27-31); MEAN CORPUSCULAR HGB CONC 34 % (32-36); MEAN CORPUSCULAR VOLUME 88 fL (79.0-98.0); MONOCYTES # (AUTO) 1.1 K/uL (0.0-1.0); MONOCYTES % (AUTO) 12.8 % (1.7-9.3); NEUTROPHILS # (AUTO) 4.7 K/uL (1.8-7.7); NEUTROPHILS % (AUTO) 54.1 % (40.0-70.0); PLATELET COUNT (AUTO) 383 K/uL (130-430); RED CELL DISTRIBUTION WIDTH 14.1 % (9.0-15.0); WHITE BLOOD COUNT (AUTO) 8.7 K/uL (4.8-10.8)
[2021-10-03 06:58] LABS: CALCIUM 8.2 mg/dL (8.4-11.0); CREATININE 0.36 mg/dL (0.55-1.30); POTASSIUM 3.6 mmol/L (3.5-5.1)
--- NOTE | 2021-10-03 07:25 | NUR ---
INITIAL RECEIVED SHIFT REPORT FROM NIGHT RN FOR CONTINUING OF CARE
[2021-10-03] MEDS: DOCUSATE SODIUM 100 MG CAPSULE PO SCH ×2 (08:41→21:29)
[2021-10-03] MEDS: LACTULOSE 20 GM/30 ML UDC GT SCH ×2 (08:41→21:20)
[2021-10-03] MEDS: LANSOPRAZOLE 30 MG CAPSULE.DR GT SCH ×2 (08:41→21:21)
[2021-10-03] MEDS: LACTOBACILLUS RHAMNOSUS GG 1 CAP CAPSULE GT SCH ×2 (08:41→21:20)
[2021-10-03] MEDS: SODIUM CHLORIDE 500 MG TABLET GT SCH ×2 (08:41→21:26)
[2021-10-03] MEDS: MULTIVITAMINS TAB 1 TABLET GT SCH (08:41)
[2021-10-03] MEDS: CEFEPIME 1 GM in D5W 50 ML IV SCH ×2 (08:42→21:28)
[2021-10-03] MEDS: LevETIRAcetam 500 MG/5 ML UDC ORAL LIQUID GT SCH ×2 (08:42→21:20)
[2021-10-03] MEDS: CHLORHEXIDINE GLUCONATE 15 ML/DOSE, 480 ML MM SCH ×2 (08:43→21:29)
[2021-10-03] MEDS: METOPROLOL TARTRATE 25 MG TABLET GT SCH ×2 (08:44→21:25)
[2021-10-03] MEDS: [UNRECOGNIZED DRUG - OTHER] GT SCH ×2 (09:00→21:00)
--- NOTE | 2021-10-03 10:45 | NUR ---
TWO URINARY CATHERTERS CONFIRMED WITH EMMA/MARKEL PT CONTINUES TO HAVE BOTH CATHETERS, SUPRA-PUBIC CATH & KEITH CATH IN PLACED AT THIS TIME
[2021-10-03] MEDS: amLODIPine BESYLATE 10 MG TABLET PO SCH (12:18)
--- NOTE | 2021-10-03 13:43 | NUR ---
NURSING CARES PROVIDED TOTAL CARES TO PT ALONG WITH REPOSITIONING; PT TOLERATED WELL
--- NOTE | 2021-10-03 17:47 | NUR ---
Catheters outputs Supra-pubic cath output 350 ml & yee cath output 420 ml
--- NOTE | 2021-10-03 19:13 | NUR ---
ENDORSEMENT SHIFT REPORT GIVEN TO NIGHT RN FOR CONTINUING OF CARE
[2021-10-03] MEDS: SENNOSIDES 8.6 MG TABLET GT SCH (21:26)
[2021-10-03] MEDS: ENOXAPARIN SODIUM 40 MG/0.4 ML SYRINGE SUBCUT SCH (21:31)
[2021-10-04] VITALS (29 sets, daily range): BP systolic 75–154
[2021-10-04] MEDS: HYDROmorphone 2 MG/ML VIAL IVP PRN ×2 (01:30→07:03)
[2021-10-04] MEDS: NACL 0.9% 1,000 ML IV SCH ×2 (06:20→16:45)
[2021-10-04 06:30] LABS: BASOPHILS # (AUTO) 0.1 K/uL (0.0-0.2); BASOPHILS % (AUTO) 1.2 % (0.0-2.0); EOSINOPHILS # (AUTO) 0.3 K/uL (0.0-0.4); HEMATOCRIT 26.7 % (36-54); LYMPHOCYTES # (AUTO) 2.1 K/uL (1.0-5.5); LYMPHOCYTES % (AUTO) 27.2 % (20.5-51.5); MEAN CORPUSCULAR HEMOGLOBIN 30 pg (27-31); MEAN CORPUSCULAR HGB CONC 34 % (32-36); MEAN CORPUSCULAR VOLUME 88 fL (79.0-98.0); MONOCYTES # (AUTO) 1.1 K/uL (0.0-1.0); MONOCYTES % (AUTO) 14.3 % (1.7-9.3); NEUTROPHILS % (AUTO) 53.3 % (40.0-70.0); PLATELET COUNT (AUTO) 403 K/uL (130-430); RED BLOOD CELL COUNT(AUTO) 3.05 MIL/uL (4.2-6.2); RED CELL DISTRIBUTION WIDTH 14.4 % (9.0-15.0); WHITE BLOOD COUNT (AUTO) 7.5 K/uL (4.8-10.8)
--- NOTE | 2021-10-04 07:15 | NUR ---
received report from endorsing hotel night auditor RN for continuity of care. patient lying on bed with an IVF of NS @ 75 cc/hr. tubefeeding Jevity 1.5 @ 65.yee catheter and suprapubic catheter in place, yellow urine in color draining to gravity. bed locked at lowest position, fall and safety precaution in place.
[2021-10-04 08:08] LABS: CALCIUM 8.1 mg/dL (8.4-11.0); CREATININE 0.37 mg/dL (0.55-1.30); POTASSIUM 3.6 mmol/L (3.5-5.1)
[2021-10-04] MEDS: CEFEPIME 1 GM in D5W 50 ML IV SCH ×2 (08:22→21:24)
[2021-10-04] MEDS: MULTIVITAMINS TAB 1 TABLET GT SCH (08:26)
[2021-10-04] MEDS: LANSOPRAZOLE 30 MG CAPSULE.DR GT SCH ×2 (08:26→21:24)
[2021-10-04] MEDS: amLODIPine BESYLATE 10 MG TABLET PO SCH (08:26)
[2021-10-04] MEDS: LACTULOSE 20 GM/30 ML UDC GT SCH ×2 (08:27→21:24)
[2021-10-04] MEDS: LevETIRAcetam 500 MG/5 ML UDC ORAL LIQUID GT SCH ×2 (08:27→21:24)
[2021-10-04] MEDS: LACTOBACILLUS RHAMNOSUS GG 1 CAP CAPSULE GT SCH ×2 (08:27→21:23)
[2021-10-04] MEDS: DOCUSATE SODIUM 100 MG CAPSULE PO SCH ×2 (08:27→21:24)
[2021-10-04] MEDS: [UNRECOGNIZED DRUG - OTHER] GT SCH ×2 (09:00→21:00)
[2021-10-04] MEDS: METOPROLOL TARTRATE 25 MG TABLET GT SCH ×2 (09:00→21:24)
[2021-10-04] MEDS: CHLORHEXIDINE GLUCONATE 15 ML/DOSE, 480 ML MM SCH ×2 (09:45→21:24)
--- NOTE | 2021-10-04 10:08 | NUR ---
cap and lock Gutiérrez catheter,urine output is 200 ml, urine yellow in color. empty suprapubic catheter 250 ml out.yellow urine in color.
[2021-10-04] MEDS: SODIUM CHLORIDE 500 MG TABLET GT SCH ×2 (11:20→21:24)
--- NOTE | 2021-10-04 11:25 | NUR ---
Change Tube Feeding line @ 1125. [facility] 1.5 @ 65 cc/hr
--- NOTE | 2021-10-04 15:59 | NUR ---
empty suprapubic catheter, 100 cc. [facility] urine in color
[2021-10-04] MEDS: SENNOSIDES 8.6 MG TABLET GT SCH (21:24)
[2021-10-04] MEDS: ENOXAPARIN SODIUM 40 MG/0.4 ML SYRINGE SUBCUT SCH (21:26)
[2021-10-05] VITALS (34 sets, daily range): BP systolic 115–147
[2021-10-05] MEDS: NACL 0.9% 1,000 ML IV SCH ×2 (07:16→23:36)
--- NOTE | 2021-10-05 07:16 | NUR ---
RECEIVED REPORT FROM ENDORSING PERMANENT MOLD SUPERVISOR RN FOR CONTINUITY OF CARE,PATIENT LYING ON BED WITH AN IVF OF NORMAL SALINE @ 75MLS/HR, ON TUBE FEEDING JEVITY 1.5 @65.CHECKED RESIDUAL 10 CC.ON AC 14, TIDAL VOLUME 500, FIO2 30% AND PEEP OF 5. EMPTY SUPRAPUBIC CATHETER 100 CC OUT, YELLOW URINE IN COLOR, BED LOCKED AT LOWEST POSITION, FALL AND SAFETY PRECAUTION IN PLACE. CHECKED PATIENT TEMPERATURE 97.4. PATIENT HEART RATE 88, RESPIRATORY RATE 14, OXYGEN SATURATION 93, BLOOD PRESSURE 132/68.
--- NOTE | 2021-10-05 08:08 | NUR ---
DR. FOWLER IS AT BEDSIDE ASSESSING THE PATIENT, VERBAL REPORT GIVEN.EMPTY SUPRAPUBIC CATHETER 200 CC, YELLOW URINE IN COLOR.
[2021-10-05] MEDS: CEFEPIME 1 GM in D5W 50 ML IV SCH ×2 (08:10→21:35)
[2021-10-05] MEDS: DOCUSATE SODIUM 100 MG CAPSULE PO SCH ×2 (08:11→20:31)
[2021-10-05] MEDS: LACTOBACILLUS RHAMNOSUS GG 1 CAP CAPSULE GT SCH ×2 (08:14→20:30)
[2021-10-05] MEDS: amLODIPine BESYLATE 10 MG TABLET PO SCH (08:14)
[2021-10-05] MEDS: LACTULOSE 20 GM/30 ML UDC GT SCH ×2 (08:15→20:30)
[2021-10-05] MEDS: LevETIRAcetam 500 MG/5 ML UDC ORAL LIQUID GT SCH ×2 (08:15→21:34)
[2021-10-05] MEDS: SODIUM CHLORIDE 500 MG TABLET GT SCH ×2 (08:15→20:30)
[2021-10-05] MEDS: LANSOPRAZOLE 30 MG CAPSULE.DR GT SCH ×2 (08:15→20:31)
[2021-10-05 08:40] LABS: BASOPHILS # (AUTO) 0.1 K/uL (0.0-0.2); BASOPHILS % (AUTO) 1.1 % (0.0-2.0); EOSINOPHILS # (AUTO) 0.4 K/uL (0.0-0.4); EOSINOPHILS % (AUTO) 4.9 % (0.0-4.0); HEMOGLOBIN 8.9 g/dL (14.0-18.0); LYMPHOCYTES # (AUTO) 2.7 K/uL (1.0-5.5); LYMPHOCYTES % (AUTO) 35.6 % (20.5-51.5); MEAN CORPUSCULAR HEMOGLOBIN 30 pg (27-31); MEAN CORPUSCULAR HGB CONC 34 % (32-36); MEAN CORPUSCULAR VOLUME 88 fL (79.0-98.0); MONOCYTES # (AUTO) 1.1 K/uL (0.0-1.0); MONOCYTES % (AUTO) 14.5 % (1.7-9.3); NEUTROPHILS # (AUTO) 3.3 K/uL (1.8-7.7); NEUTROPHILS % (AUTO) 43.9 % (40.0-70.0); PLATELET COUNT (AUTO) 417 K/uL (130-430); RED BLOOD CELL COUNT(AUTO) 2.96 MIL/uL (4.2-6.2); RED CELL DISTRIBUTION WIDTH 14.4 % (9.0-15.0); WHITE BLOOD COUNT (AUTO) 7.6 K/uL (4.8-10.8)
[2021-10-05 08:54] LABS: CALCIUM 8.1 mg/dL (8.4-11.0); CREATININE 0.44 mg/dL (0.55-1.30); POTASSIUM 3.9 mmol/L (3.5-5.1)
[2021-10-05] MEDS: [UNRECOGNIZED DRUG - OTHER] GT SCH ×2 (09:00→21:34)
[2021-10-05] MEDS: MULTIVITAMINS TAB 1 TABLET GT SCH (09:02)
[2021-10-05] MEDS: CHLORHEXIDINE GLUCONATE 15 ML/DOSE, 480 ML MM SCH ×2 (09:03→21:35)
[2021-10-05] MEDS: METOPROLOL TARTRATE 25 MG TABLET GT SCH ×2 (09:05→20:31)
--- NOTE | 2021-10-05 14:16 | NUR ---
Nutrition F/U Admission Dx: Sepsis PMH: TBI, seizure disorder, chronic respiratory failure, BPH, and neurogenic bladder per physician notes SARS-CoV-2 Ag (Rapid) Negative 09/26 Current Diet Order/Nutrition Support: Jevity 1.5 at 65 ml/hr (goal), Free Water Flush: 200 ml Q4h via GT Subjective Info: RD rounded to pt's room. TF was seen infusing as per physician order -- 425 ml infused, providing 638 kcal. Attending MD rounding at time of RD visit as well. Primary RN reported that pt has been tolerating TF well, 100 ml GRV today, and urine output draining yellow urine now -- 1.8 L output yesterday and 800 ml output today. RN denied any BM today or yesterday. Per EMR review, TF Intakes: 780 ml 10/05; GRV: 25 ml 10/05; abd is distended w/ active bowel sounds; last BM x1 09/27/stool output: 1 ml 09/30; Broderick scale: 12, no PIs noted. Current TF prescription is adequate/appropriate. Pertinent Medications: lactulose, MVI, colace, culturelle, lovenox, senna, keppra Pertinent Labs: BG 106 H, CRE 0.44 L Height: 5'6" Weight: 180 pounds/81.995520 kilograms -- stable since 09/27 Body Mass Index: 29.05 kg/m2 [place]/Adjusted Body Weight: 142#/65 kg. Adj IBW (obesity): 152#/69 kg Estimated Energy Expenditure (kcals/day) 8930-8485 kcal/day (30-35 kcal/kg Adj IBW d/t sepsis) vs 1937 (PSU 2003b on vent) Estimated Protein Required (g/day) 104-138 gm/day (1.5-2 gm/kg Adj IBW d/t sepsis) Estimated Fluid Required (l/day) 2-2.4 L/day (1 ml/kcal/day for maintenance) Problem/Etiology/Signs/Symptoms Increased nutritional needs related to metabolic demands as evidenced by estimated nutritional requirements for sepsis. *ongoing Expected Outcomes/Goals - Monitor tolerance to EN support w/ goal of pt meeting at least 80% of estimated nutritional needs, labs trending WNL, normal GI function, and skin integrity/wt maintenance Dietitian Recommendations * Continue Jevity 1.5 at 65 ml/hr (goal rate), Free Water Flush: 200 ml Q4h via GT Provides: 2340 kcal/day, 100 gm protein/day, and 2386 ml free water/day Meets: 97% of upper end of estimated caloric needs and 96% of lower end of estimated protein needs Follow Up High Risk: F/U in 2-3 days
--- NOTE | 2021-10-05 16:05 | NUR ---
bedside care rendered, change linen and empty suprapubic catheter 1000L , light yellow urine in color. Patient heart rate 82, respiratory rate 14, oxygen saturation 97, and blood pressure 117/68.
[2021-10-05] MEDS: SENNOSIDES 8.6 MG TABLET GT SCH (20:31)
[2021-10-05] MEDS: ENOXAPARIN SODIUM 40 MG/0.4 ML SYRINGE SUBCUT SCH (20:32)
[2021-10-06] VITALS (31 sets, daily range): BP systolic 89–126
--- NOTE | 2021-10-06 07:31 | NUR ---
INITIAL RECEIVED BEDSIDE SHIFT REPORT FROM NIGHT RN FOR CONTINUING OF CARE
[2021-10-06] MEDS: LANSOPRAZOLE 30 MG CAPSULE.DR GT SCH ×2 (08:24→20:21)
[2021-10-06] MEDS: LACTULOSE 20 GM/30 ML UDC GT SCH ×2 (08:24→20:19)
[2021-10-06] MEDS: CHLORHEXIDINE GLUCONATE 15 ML/DOSE, 480 ML MM SCH ×2 (08:25→21:11)
[2021-10-06] MEDS: DOCUSATE SODIUM 100 MG CAPSULE PO SCH ×2 (08:25→20:21)
[2021-10-06] MEDS: MULTIVITAMINS TAB 1 TABLET GT SCH (08:25)
[2021-10-06] MEDS: SODIUM CHLORIDE 500 MG TABLET GT SCH ×2 (08:25→20:20)
[2021-10-06] MEDS: LevETIRAcetam 500 MG/5 ML UDC ORAL LIQUID GT SCH ×2 (08:26→20:20)
[2021-10-06] MEDS: CEFEPIME 1 GM in D5W 50 ML IV SCH ×2 (08:26→20:19)
[2021-10-06] MEDS: LACTOBACILLUS RHAMNOSUS GG 1 CAP CAPSULE GT SCH ×2 (08:27→20:21)
[2021-10-06] MEDS: METOPROLOL TARTRATE 25 MG TABLET GT SCH ×2 (09:00→20:20)
[2021-10-06] MEDS: [UNRECOGNIZED DRUG - OTHER] GT SCH ×2 (09:00→21:00)
[2021-10-06] MEDS: amLODIPine BESYLATE 10 MG TABLET PO SCH (12:20)
[2021-10-06] MEDS: NACL 0.9% 1,000 ML IV SCH (12:21)
--- NOTE | 2021-10-06 13:05 | NUR ---
NRSG CARE ORAL, SKIN, FACIAL, BARRY, and BED-BATH PROVIDED TO PT. PT TOLERATED WELL
--- NOTE | 2021-10-06 19:10 | NUR ---
Received SBAR report from AM shift nurse MAXIME Rodgers. Patient in bed with HOB elevated. On Vent to trach AC 14, Tv 500, FiO2 30%, Peep5. Saturation: 94-97%. Bilateral upper lobes with diminished sounds. SR on monitor. Suction Trach & mouth as needed. With GT feeding running Jevity 1.5 @ 65 mL/hr. Patient tolerating well. Abdomen round. Bowel sounds (+). With Suprapubic catheter draining yellow urine with scanty amount of sediments. No hematuria. Kept clean and dry. Will continue to monitor.
[2021-10-06] MEDS: SENNOSIDES 8.6 MG TABLET GT SCH (20:20)
[2021-10-06] MEDS: ENOXAPARIN SODIUM 40 MG/0.4 ML SYRINGE SUBCUT SCH (20:22)
[2021-10-07] VITALS (31 sets, daily range): BP systolic 95–132
[2021-10-07] MEDS: NACL 0.9% 1,000 ML IV SCH ×2 (02:11→18:37)
--- NOTE | 2021-10-07 07:26 | NUR ---
INITIAL RECEIVED SHIFT REPORT FROM NIGHT RN FOR CONTINUING OF CARE
[2021-10-07] MEDS: LACTULOSE 20 GM/30 ML UDC GT SCH ×2 (08:21→20:52)
[2021-10-07] MEDS: LACTOBACILLUS RHAMNOSUS GG 1 CAP CAPSULE GT SCH ×2 (08:21→20:53)
[2021-10-07] MEDS: DOCUSATE SODIUM 100 MG CAPSULE PO SCH ×2 (08:21→20:53)
[2021-10-07] MEDS: LevETIRAcetam 500 MG/5 ML UDC ORAL LIQUID GT SCH ×2 (08:21→21:00)
[2021-10-07] MEDS: CEFEPIME 1 GM in D5W 50 ML IV SCH ×2 (08:22→21:00)
[2021-10-07] MEDS: CHLORHEXIDINE GLUCONATE 15 ML/DOSE, 480 ML MM SCH ×2 (08:22→20:55)
[2021-10-07] MEDS: SODIUM CHLORIDE 500 MG TABLET GT SCH ×2 (08:23→20:54)
[2021-10-07] MEDS: [UNRECOGNIZED DRUG - OTHER] GT SCH ×2 (08:23→21:00)
[2021-10-07] MEDS: MULTIVITAMINS TAB 1 TABLET GT SCH (08:23)
[2021-10-07] MEDS: METOPROLOL TARTRATE 25 MG TABLET GT SCH ×2 (09:00→20:57)
[2021-10-07] MEDS: LANSOPRAZOLE 30 MG CAPSULE.DR GT SCH ×2 (09:00→20:52)
[2021-10-07] MEDS: amLODIPine BESYLATE 10 MG TABLET PO SCH (10:42)
--- NOTE | 2021-10-07 11:59 | NUR ---
ENDORSEMENT REPORT GIVEN TO KATYA/CHARGE NURSE FOR CONTINUING OF CARE
--- NOTE | 2021-10-07 12:00 | NUR ---
Received pt to assume care. Pt resing comfortably on current vent settings. VSS and SR on monitor. Pt opens eyes to stimulus but is non verbal and does not track. HOB up slightly.
--- NOTE | 2021-10-07 19:00 | NUR ---
Report given to oncoming nurse to assume care of the patient.
[2021-10-07] MEDS: SENNOSIDES 8.6 MG TABLET GT SCH (20:53)
[2021-10-07] MEDS: ENOXAPARIN SODIUM 40 MG/0.4 ML SYRINGE SUBCUT SCH (20:59)
[2021-10-08] VITALS (24 sets, daily range): BP systolic 100–149
--- NOTE | 2021-10-08 07:27 | NUR ---
INITIAL RECEIVED SHIFT REPORT FROM NIGHT RN FOR CONTINUING OF CARE
[2021-10-08] MEDS: NACL 0.9% 1,000 ML IV SCH (08:00)
[2021-10-08] MEDS: LACTULOSE 20 GM/30 ML UDC GT SCH ×2 (08:13→20:09)
[2021-10-08] MEDS: LevETIRAcetam 500 MG/5 ML UDC ORAL LIQUID GT SCH ×2 (08:14→20:09)
[2021-10-08] MEDS: DOCUSATE SODIUM 100 MG CAPSULE PO SCH ×2 (08:14→20:08)
[2021-10-08] MEDS: LANSOPRAZOLE 30 MG CAPSULE.DR GT SCH ×2 (08:14→20:09)
[2021-10-08] MEDS: CEFEPIME 1 GM in D5W 50 ML IV SCH ×2 (08:14→20:08)
[2021-10-08] MEDS: SODIUM CHLORIDE 500 MG TABLET GT SCH ×2 (08:14→20:08)
[2021-10-08] MEDS: LACTOBACILLUS RHAMNOSUS GG 1 CAP CAPSULE GT SCH ×2 (08:14→20:09)
[2021-10-08] MEDS: MULTIVITAMINS TAB 1 TABLET GT SCH (08:14)
[2021-10-08] MEDS: CHLORHEXIDINE GLUCONATE 15 ML/DOSE, 480 ML MM SCH ×2 (08:15→20:08)
[2021-10-08] MEDS: amLODIPine BESYLATE 10 MG TABLET PO SCH (08:17)
[2021-10-08] MEDS: [UNRECOGNIZED DRUG - OTHER] GT SCH ×2 (09:00→20:10)
--- NOTE | 2021-10-08 16:06 | NUR ---
NRSG CARES ORAL, FACE, SKIN, BARRY CARES & BEDBATH PROVIDED & GIVEN; PT TOLERATED WELL
--- NOTE | 2021-10-08 19:29 | NUR ---
ENDORSEMENT REPORT GIVEN TO NIGHT RN FOR CONTINUING OF CARE
[2021-10-08] MEDS: SENNOSIDES 8.6 MG TABLET GT SCH (20:08)
[2021-10-08] MEDS: ENOXAPARIN SODIUM 40 MG/0.4 ML SYRINGE SUBCUT SCH (20:08)
[2021-10-08] MEDS: METOPROLOL TARTRATE 25 MG TABLET GT SCH (20:09)
[2021-10-09] VITALS (31 sets, daily range): BP systolic 95–124
[2021-10-09] MEDS: NACL 0.9% 1,000 ML IV SCH (02:15)
[2021-10-09 06:24] LABS: BASOPHILS # (AUTO) 0.1 K/uL (0.0-0.2); BASOPHILS % (AUTO) 1.2 % (0.0-2.0); EOSINOPHILS # (AUTO) 0.3 K/uL (0.0-0.4); EOSINOPHILS % (AUTO) 3.8 % (0.0-4.0); HEMATOCRIT 26.8 % (36-54); LYMPHOCYTES # (AUTO) 2.3 K/uL (1.0-5.5); MEAN CORPUSCULAR HEMOGLOBIN 30 pg (27-31); MEAN CORPUSCULAR HGB CONC 34 % (32-36); MEAN CORPUSCULAR VOLUME 88 fL (79.0-98.0); MONOCYTES # (AUTO) 0.8 K/uL (0.0-1.0); MONOCYTES % (AUTO) 11.2 % (1.7-9.3); NEUTROPHILS # (AUTO) 3.4 K/uL (1.8-7.7); NEUTROPHILS % (AUTO) 49.8 % (40.0-70.0); PLATELET COUNT (AUTO) 431 K/uL (130-430); RED BLOOD CELL COUNT(AUTO) 3.03 MIL/uL (4.2-6.2); RED CELL DISTRIBUTION WIDTH 14.5 % (9.0-15.0); WHITE BLOOD COUNT (AUTO) 6.8 K/uL (4.8-10.8)
[2021-10-09 06:30] LABS: CALCIUM 7.9 mg/dL (8.4-11.0); CREATININE 0.4 mg/dL (0.55-1.30)
[2021-10-09] MEDS: DOCUSATE SODIUM 100 MG CAPSULE PO SCH (10:10)
[2021-10-09] MEDS: LACTULOSE 20 GM/30 ML UDC GT SCH (10:10)
[2021-10-09] MEDS: amLODIPine BESYLATE 10 MG TABLET PO SCH (10:11)
[2021-10-09] MEDS: LACTOBACILLUS RHAMNOSUS GG 1 CAP CAPSULE GT SCH (10:12)
[2021-10-09] MEDS: MULTIVITAMINS TAB 1 TABLET GT SCH (10:12)
[2021-10-09] MEDS: METOPROLOL TARTRATE 25 MG TABLET GT SCH (10:12)
[2021-10-09] MEDS: LANSOPRAZOLE 30 MG CAPSULE.DR GT SCH (10:12)
[2021-10-09] MEDS: LevETIRAcetam 500 MG/5 ML UDC ORAL LIQUID GT SCH (10:18)
--- NOTE | 2021-10-09 10:41 | NUR ---
Nutrition F/U Admission Dx: Sepsis PMH: TBI, seizure disorder, chronic respiratory failure, BPH, and neurogenic bladder per physician notes SARS-CoV-2 Ag (Rapid) Negative 09/26 Current Diet Order/Nutrition Support: Jevity 1.5 at 65 ml/hr (goal), Free Water Flush: 200 ml Q4h via GT x 12 days Subjective Info: Pt was seen in ICU, non-verbal, on vent, EN infusing as ordered. RD s/w pt's primary RN who reported that EN is being tolerated well, no issues. RN s/w MD about adding stool softener. MD noted pt is doing good overall and has been stable. Per EMR review, BM 10/08 x3, abdomen is soft and nondistended w/ active bowel sounds. Broderick scale: 11, no skin issues documented, RN reports 1+ pitting bilateral edema. EN rate: 65ml (10/09), GRV: 10ml (10/09). Current EN regimen remains adequate and appropriate. Pertinent Medications: lactulose, MVI, colace, culturelle, lovenox, senna, keppra, Dulcolax Pertinent Labs: 10/09 Na 133L, BG 91 , CRE 0.40 L Height: 5'6" Weight: 180 pounds/81.425397 kilograms -- stable since 09/27 Body Mass Index: 29.05 kg/m2 [place]/Adjusted Body Weight: 142#/65 kg. Adj IBW (obesity): 152#/69 kg Estimated Energy Expenditure (kcals/day) 3010-4399 kcal/day (30-35 kcal/kg Adj IBW d/t sepsis) vs 1937 (PSU 2002b on vent) Estimated Protein Required (g/day) 104-138 gm/day (1.5-2 gm/kg Adj IBW d/t sepsis) Estimated Fluid Required (l/day) 2-2.4 L/day (1 ml/kcal/day for maintenance) Problem/Etiology/Signs/Symptoms Increased nutritional needs related to metabolic demands as evidenced by estimated nutritional requirements for sepsis. *ongoing Expected Outcomes/Goals - Monitor tolerance to EN support w/ goal of pt meeting at least 80% of estimated nutritional needs, labs trending WNL, normal GI function, and skin integrity/wt maintenance Dietitian Recommendations * Continue Jevity 1.5 at 65 ml/hr (goal rate), Free Water Flush: 200 ml Q4h via GT Provides: 2340 kcal/day, 100 gm protein/day, and 2386 ml free water/day Meets: 97% of upper end of estimated caloric needs and 96% of lower end of estimated protein needs Follow Up Moderate Risk: F/U in 3-5 days
--- NOTE | 2021-10-09 10:45 | NUR ---
Dietitian Recommendations * Continue Jevity 1.5 at 65 ml/hr (goal rate), Free Water Flush: 200 ml Q4h via GT Provides: 2340 kcal/day, 100 gm protein/day, and 2386 ml free water/day Meets: 97% of upper end of estimated caloric needs and 96% of lower end of estimated protein needs Please see Nutrition F/U note for details. LONG TERM, RD
[2021-10-09] MEDS: CEFEPIME 1 GM in D5W 50 ML IV SCH (15:47)
--- NOTE | 2021-10-09 16:21 | NUR ---
Patient accepted at [facility]-they will not have a bed for him until friday due to isolations. Plan to DC to [facility] when bed is available.
--- NOTE | 2021-10-09 17:00 | NUR ---
Patient has discharge orders to return to [facility]. However case management called and stated they do not have a bed until 10/12/21. Dr. Elliott declined patient being downgraded to MS/Tele
--- NOTE | 2021-10-09 19:15 | NUR ---
Report given and received by Mike-MAXIME, patient resting in bed care of patient transferred.
--- NOTE | 2021-10-09 20:00 | NUR ---
ASSESSMENT Pt resting quietly. Upper and lower extremities contracted. Right upper arm with Midline PICC, no redness or swelling noted @ site. Pt trach to vent, tolerating current vent settings. Gastric tube patent connected to continuous feeding in progress. Suprapubic cath draining yellow urine with sediment. Gutiérrez cath in place plugged.
[2021-10-09] MEDS: CHLORHEXIDINE GLUCONATE 15 ML/DOSE, 480 ML MM SCH (21:00)
[2021-10-09] MEDS: [UNRECOGNIZED DRUG - OTHER] GT SCH (21:00)
[2021-10-10] VITALS (19 sets, daily range): BP systolic 104–142
--- NOTE | 2021-10-10 | NUR ---
IV SITE Right AC saline lock discontinued. Site not patent.
[2021-10-10] MEDS: CEFEPIME 1 GM in D5W 50 ML IV SCH ×3 (01:05→21:46)
[2021-10-10] MEDS: LevETIRAcetam 500 MG/5 ML UDC ORAL LIQUID GT SCH ×3 (01:06→21:43)
[2021-10-10] MEDS: LACTULOSE 20 GM/30 ML UDC GT SCH ×3 (01:06→21:44)
[2021-10-10] MEDS: SENNOSIDES 8.6 MG TABLET GT SCH ×2 (01:07→21:43)
[2021-10-10] MEDS: DOCUSATE SODIUM 100 MG CAPSULE PO SCH ×3 (01:07→21:45)
[2021-10-10] MEDS: SODIUM CHLORIDE 500 MG TABLET GT SCH ×3 (01:08→21:46)
[2021-10-10] MEDS: LACTOBACILLUS RHAMNOSUS GG 1 CAP CAPSULE GT SCH ×3 (01:09→21:45)
[2021-10-10] MEDS: LANSOPRAZOLE 30 MG CAPSULE.DR GT SCH ×3 (01:09→21:43)
[2021-10-10] MEDS: METOPROLOL TARTRATE 25 MG TABLET GT SCH ×3 (01:13→21:44)
[2021-10-10] MEDS: ENOXAPARIN SODIUM 40 MG/0.4 ML SYRINGE SUBCUT SCH ×2 (01:14→21:46)
[2021-10-10] MEDS: NACL 0.9% 1,000 ML IV SCH ×3 (04:37→23:16)
--- NOTE | 2021-10-10 08:00 | NUR ---
AM ASSESSMENT PT AFEBRILE, ORAL CARE DONE, EYES NOT TRACKING, ABDOMEN SOFT, GTUBE FEEDING TOLERATED, FLUSHED WITH WATER 200 ML, REPOSITIONED IN BED, CONTRACTED EXTREMITIES, MILD EDEMA, SUPRAPUBIC CATH DRAINING CLEAR URINE.
[2021-10-10] MEDS: [UNRECOGNIZED DRUG - OTHER] GT SCH ×2 (08:54→21:00)
[2021-10-10] MEDS: MULTIVITAMINS TAB 1 TABLET GT SCH (09:32)
[2021-10-10] MEDS: CHLORHEXIDINE GLUCONATE 15 ML/DOSE, 480 ML MM SCH ×2 (09:38→21:00)
[2021-10-10] MEDS: amLODIPine BESYLATE 10 MG TABLET PO SCH (10:05)
--- NOTE | 2021-10-10 12:17 | NUR ---
REPORT ENDORSED CARE TO MAXIME MATOS.
--- NOTE | 2021-10-10 12:30 | NUR ---
PATIENT RECEIVED FROM ICU FROM JAMES SWARTZ. PATIENT BROUGHT VIA BED. ON NON REBREATHIER MASK 100%. AND PLACED ON MECHANICAL VENTILATOR AC 14, FIO2 OF 30% TV 500 PEEP OF 5. LUNGS BILATERALLY WITH CRACKLES AND DIMINISHED AT THE BASES. HAS IV ACCESS ON THE JONATHAN WITH MIDLINE 2 LUMEN WITH 1/2 NS AT 75CC/HR INFUSING ON WELL. BOTH ARMS/BOTH LEGS ARE CONTRACTED. NO SKIN BREAKDOWN NOTED. ABDOMEN FIRM BUT DISTENDED, BUT POSITIVE BOWEL SOUNDS. HAS G TUBE AND PLACED A NEW JEVITY 1.5 TO RUN AT 65CC/HR INFUSING ON WELL. NO RESIDUAL NOTED. HAS SUPRAPUBIC CATHETER DRAINING CLEAR YELLOW URINE. HAS KEITH CATHETER IN PLACED CAPPED. WILL CONTINUE TO MONITOR PATIENTS STATUS.
--- NOTE | 2021-10-10 12:30 | NUR ---
RT NOTES Transferred pt to 108A. Pt. remained on the vent, a/w remained secure/patent. Vent plugged into red outlet. resus. bag and spare trach remains at bedside.
--- NOTE | 2021-10-10 15:49 | NUR ---
TURN TO SIDES MADE COMFORTABLE. VITALS SIGNS STABLE. AFEBRILE
--- NOTE | 2021-10-10 19:15 | NUR ---
OPENING NOTES PATIENT RESTING, NO SIGNS OF ACUTE RESPIRATORY DISTRESS NOTED, CONNECTED TO VENT WITH TRACH, HOB ELEVATED. G TUBE IN PLACE. CALL LIGHT WITHIN REACH, BED ALARM ON, BED AT LOWEST POSITION, BED LOCKED. SEIZURE PADS IN PLACE. FALL, SEIZURE, RESPIRATORY, ISOLATION, ASPIRATION, AND SAFETY PRECAUTIONS IN PLACE. SUPRAPUBIC KEITH CATHETER IN PLACE, DRAINING BY GRAVITY, NO KINKS, NO LOOPS, BAG NOT TOUCHING THE FLOOR. KEITH CATHETER IN PLACE. WILL CONTINUE TO MONITOR.
--- NOTE | 2021-10-10 22:00 | NUR ---
ORAL CARE PROVIDED, TURNING PROVIDED. NO SIGNS OF DISTRESS NOTED.
[2021-10-11 01:02] VITALS: BP_SYST 121
--- NOTE | 2021-10-11 06:08 | NUR ---
CLOSING NOTES PATIENT RESTING, NO SIGNS OF ACUTE RESPIRATORY DISTRESS NOTED, CONNECTED TO VENT WITH TRACH, HOB ELEVATED. G TUBE IN PLACE. CALL LIGHT WITHIN REACH, BED ALARM ON, BED AT LOWEST POSITION, BED LOCKED. SEIZURE PADS IN PLACE. FALL, SEIZURE, RESPIRATORY, ISOLATION, ASPIRATION, AND SAFETY PRECAUTIONS IN PLACE THROUGHOUT SHIFT. SUPRAPUBIC KEITH CATHETER IN PLACE, DRAINING BY GRAVITY, NO KINKS, NO LOOPS, BAG NOT TOUCHING THE FLOOR. KEITH CATHETER IN PLACE. ALL NEEDS MET THROUGHOUT SHIFT. WILL ENDORSE CARE TO ONCOMING SHIFT.
[2021-10-11 08:00] VITALS: BP_SYST 132
[2021-10-11] MEDS: [UNRECOGNIZED DRUG - OTHER] GT SCH ×2 (09:00→21:00)
[2021-10-11] MEDS: LACTULOSE 20 GM/30 ML UDC GT SCH ×2 (11:17→21:23)
[2021-10-11] MEDS: amLODIPine BESYLATE 10 MG TABLET PO SCH (11:18)
[2021-10-11] MEDS: DOCUSATE SODIUM 100 MG CAPSULE PO SCH ×2 (11:18→21:22)
[2021-10-11] MEDS: SODIUM CHLORIDE 500 MG TABLET GT SCH ×2 (11:18→21:22)
[2021-10-11] MEDS: CEFEPIME 1 GM in D5W 50 ML IV SCH ×2 (11:19→21:20)
[2021-10-11] MEDS: CHLORHEXIDINE GLUCONATE 15 ML/DOSE, 480 ML MM SCH ×2 (11:21→21:23)
[2021-10-11] MEDS: NACL 0.9% 1,000 ML IV SCH (11:22)
[2021-10-11 11:31] VITALS: BP_SYST 96
[2021-10-11] MEDS: LANSOPRAZOLE 30 MG CAPSULE.DR GT SCH ×2 (12:10→21:22)
[2021-10-11] MEDS: LevETIRAcetam 500 MG/5 ML UDC ORAL LIQUID GT SCH ×2 (12:10→21:24)
[2021-10-11] MEDS: LACTOBACILLUS RHAMNOSUS GG 1 CAP CAPSULE GT SCH ×2 (12:11→21:21)
[2021-10-11] MEDS: METOPROLOL TARTRATE 25 MG TABLET GT SCH ×2 (12:11→21:23)
[2021-10-11] MEDS: MULTIVITAMINS TAB 1 TABLET GT SCH (12:11)
--- NOTE | 2021-10-11 14:50 | NUR ---
Discharge Planning: DCP arrange transport with [facility] [phone] Friday at 4:00pm that is when facility can admit by 5:00pm to RM 42 at [facility] ([phone]) DCP made CM aware.
[2021-10-11 15:33] VITALS: BP_SYST 96
[2021-10-11 20:00] VITALS: BP_SYST 101
[2021-10-11] MEDS: SENNOSIDES 8.6 MG TABLET GT SCH (21:21)
[2021-10-11] MEDS: ENOXAPARIN SODIUM 40 MG/0.4 ML SYRINGE SUBCUT SCH (21:25)
--- NOTE | 2021-10-11 22:00 | NUR ---
ROUNDING NOTES Patient resting in bed - no s/s pain or distress noted. Respirations even and unlabored - head of bed elevated mech vent. IV site patent - no s/s redness, infection, or infiltration. Bed locked and in lowest position. Call light within reach.
[2021-10-12] MEDS: NACL 0.9% 1,000 ML IV SCH ×2 (00:40→15:16)
[2021-10-12 00:47] VITALS: BP_SYST 103
[2021-10-12 08:00] VITALS: BP_SYST 113
[2021-10-12] MEDS: CEFEPIME 1 GM in D5W 50 ML IV SCH ×2 (09:07→20:49)
[2021-10-12] MEDS: LACTULOSE 20 GM/30 ML UDC GT SCH ×2 (09:07→20:49)
[2021-10-12] MEDS: SODIUM CHLORIDE 500 MG TABLET GT SCH ×2 (09:08→20:50)
[2021-10-12] MEDS: LACTOBACILLUS RHAMNOSUS GG 1 CAP CAPSULE GT SCH ×2 (09:08→20:50)
[2021-10-12] MEDS: LevETIRAcetam 500 MG/5 ML UDC ORAL LIQUID GT SCH ×2 (09:08→20:50)
[2021-10-12] MEDS: MULTIVITAMINS TAB 1 TABLET GT SCH (09:08)
[2021-10-12] MEDS: DOCUSATE SODIUM 100 MG CAPSULE PO SCH ×2 (09:10→20:50)
[2021-10-12] MEDS: LANSOPRAZOLE 30 MG CAPSULE.DR GT SCH ×2 (09:10→20:50)
[2021-10-12] MEDS: amLODIPine BESYLATE 10 MG TABLET PO SCH (09:10)
[2021-10-12] MEDS: METOPROLOL TARTRATE 25 MG TABLET GT SCH ×2 (09:10→20:50)
[2021-10-12] MEDS: CHLORHEXIDINE GLUCONATE 15 ML/DOSE, 480 ML MM SCH ×2 (09:11→20:50)
--- NOTE | 2021-10-12 11:08 | NUR ---
DISCHARGE PLANNING Called & spoke with Aravind and verified have bed avail for pt today. Ok for pt pickle cutter as arrange for 4pm today with [facility] ph [phone], to be there at 5pm, pt going to room 42, report [phone]. Packet to nsg station. No answer from nurse and not at nsg station, ms for nurse updating.
[2021-10-12 11:28] VITALS: BP_SYST 101
[2021-10-12 12:55] VITALS: BP_SYST 113
--- NOTE | 2021-10-12 15:37 | NUR ---
REPORT GIVEN TO KATIE, THE ONE WHO WILL BE ACCEPTING THIS PATIENT TO ROOM #42, AT [facility]. ) PER MEDICATIONS RECONCILIATION, PATIENT WILL NOT GET ANY ABX WHEN AT THE FACILITY; HOWEVER, KATIE ASKED TO SEE WHETHER WE CAN DISCHARGE THE PATIENT WITH PICC LINE ON JONATHAN PICC IN PLACE, JUST IN CASE THEY NEED IT . PATIENT IS DISCHARGED WITH SUPRAPUBIC KEITH, JONATHAN PICC, AND GT INTACT. ALL QUESTIONS EXPLAINED IN DETAILS, EXPECTED TO BE PICKED UP AT 1600 SCHEDULED.
[2021-10-12 15:38] VITALS: BP_SYST 120
--- NOTE | 2021-10-12 16:27 | NUR ---
F/U CALL WAS MADE TO [facility]. SPOKE TO [place] AND PICK TIME WAS SET FOR 1710 GOING TO [facility] ROOM 42.
--- NOTE | 2021-10-12 17:19 | NUR ---
[facility] REFUSED TO TAKE THE THE PT NOW. PER MAXIME WILSON OF [facility], THE ROOM 42 IS NOT AVAILABLE. INFORMED [facility] TO PUT PT BACK ON WILL CALL STATUS. SPOKE TO ELLE BUT SHE SAID THE EARLIEST TIME THAT PT CAN BE TRANSFERED WILL BE ON 10/14/21 @ 0900 .
--- NOTE | 2021-10-12 17:43 | NUR ---
1714 [facility] CALLED TO CANCELL THE ADMISSION OF THIS PATIENT. . " NO BED AVAILABLE RIGHT NOW, TOMORROW YES" PATIENT STAYS FOR ANOTHER NIGHT, CHARGE NURSE MADE AWARE.
--- NOTE | 2021-10-12 19:29 | NUR ---
DR. EDOUARD PAGED - PATIENT NOT DISCHARGING AT THIS TIME MADE AWARE - NO ROOM AVAILABLE TO SNF. STATES "OKAY." NO NEW ORDERS. TO BE DISCHARGED TOMORROW.
[2021-10-12 20:00] VITALS: BP_SYST 120
[2021-10-12] MEDS: SENNOSIDES 8.6 MG TABLET GT SCH (20:50)
[2021-10-12] MEDS: ENOXAPARIN SODIUM 40 MG/0.4 ML SYRINGE SUBCUT SCH (20:51)
--- NOTE | 2021-10-12 22:00 | NUR ---
ROUNDING NOTES Patient resting in bed - no s/s pain or distress noted. Respirations even and unlabored - head of bed elevated mechanical ventilation. IV site patent - no s/s redness, infection, or infiltration. Bed locked and in lowest position. Call light within reach - bed alarm on.
[2021-10-13 01:38] VITALS: BP_SYST 118
[2021-10-13 01:42] VITALS: BP_SYST 118
[2021-10-13] MEDS: NACL 0.9% 1,000 ML IV SCH (06:33)
[2021-10-13] MEDS: LANSOPRAZOLE 30 MG CAPSULE.DR GT SCH (09:00)
[2021-10-13] MEDS: LACTULOSE 20 GM/30 ML UDC GT SCH (09:00)
[2021-10-13] MEDS: MULTIVITAMINS TAB 1 TABLET GT SCH (09:01)
[2021-10-13] MEDS: METOPROLOL TARTRATE 25 MG TABLET GT SCH (09:02)
[2021-10-13] MEDS: DOCUSATE SODIUM 100 MG CAPSULE PO SCH (09:03)
[2021-10-13] MEDS: LACTOBACILLUS RHAMNOSUS GG 1 CAP CAPSULE GT SCH (09:03)
[2021-10-13] MEDS: SODIUM CHLORIDE 500 MG TABLET GT SCH (09:03)
[2021-10-13] MEDS: amLODIPine BESYLATE 10 MG TABLET PO SCH (09:03)
[2021-10-13] MEDS: CHLORHEXIDINE GLUCONATE 15 ML/DOSE, 480 ML MM SCH (09:04)
[2021-10-13] MEDS: CEFEPIME 1 GM in D5W 50 ML IV SCH (09:04)
--- NOTE | 2021-10-13 09:26 | NUR ---
CM: CALL SPOKE WITH MAGDA WHITE AT [facility] REGARDING DISCHARGE OF PT, STATED SHE HAS NO AVAILABLE BED AT THIS TIME, AND SHE WILL CALL WHEN THERE IS OPEN BED, OR IF NOT HEARD BACK BY NOON CALL BACK.
[2021-10-13 12:00] VITALS: BP_SYST 121
--- NOTE | 2021-10-13 14:24 | NUR ---
INFORMED [facility] THAT TRANSPORT NEEDED MUST BE WITH RESPIRATORY THERAPIST. [employer] MANAGER IS 1630 SPOKE TO MICHAEL. (VENT SETTING: AC 14, TD 500, PEEP 5, FIO2 30%). PT IS GOING TO [facility].
[2021-10-13 16:04] VITALS: BP_SYST 119
--- NOTE | 2021-10-13 17:47 | NUR ---
alert, non-verbal, on mechanical vent. received from today , bed available #42, report to Laura, who will be receiving the patient. all questions concerning medications , explained in details. Per attending's notes, current medications resumed, but did not put the stop date for MAXIPIME ivpb. Will be leaving for the facility with JONATHAN picc line, and suprapubic cath remain Called ambulance one more time, brick picker time expected 1830 this evening.
--- NOTE | 2021-10-13 17:53 | NUR ---
A F/U CALL WAS MADE TO [facility], RE; THE CAUSE OF DELAY AND THE NEW ETA. THE PICK TIME WILL BE 1819. SPOKE TO KENISHA.
--- NOTE | 2021-10-13 18:30 | NUR ---
Follow up call made to [facility]ulance, spoke to Alexi, she said the crew is going to be here in 30 minutes. MAXIME Miller is notified.
--- NOTE | 2021-10-13 19:30 | NUR ---
D/C Patient Pt discharged to Tony Miller RN. Addendum: 10/13/21 at 2136 by Laura Dukes RN @ 2135 called and spoke w/ pt's aunt Myra [phone] re pt's medical bracelet that was left behind, to have family moss picker at nursing station.
== END 2021-10-13 19:30 | DRG 870 ==
LOC: SED 17:05 → SIC 21:11 → STU 10-10 12:42
PROVIDERS: ADMIT Family Medicine; ATTEND Family Medicine
PROC: 5A1955Z Respiratory Ventilation, Greater than 96 Consecutive Hours (ICD-10-PCS; principal; 2021-09-26)
DX: A41.9 Sepsis, unspecified organism (principal); G82.50 Quadriplegia, unspecified; E87.1 Hypo-osmolality and hyponatremia; J96.10 Chronic respiratory failure, unspecified whether with hypoxia or hypercapnia; Z99.11 Dependence on respirator [ventilator] status; N13.6 Pyonephrosis; R65.20 Severe sepsis without septic shock; I10 Essential (primary) hypertension; N31.9 Neuromuscular dysfunction of bladder, unspecified; N32.89 Other specified disorders of bladder; G40.909 Epilepsy, unspecified, not intractable, without status epilepticus; N40.0 Benign prostatic hyperplasia without lower urinary tract symptoms; R33.9 Retention of urine, unspecified; Z20.822 Contact with and (suspected) exposure to COVID-19; M81.0 Age-related osteoporosis without current pathological fracture; K59.00 Constipation, unspecified; N35.919 Unspecified urethral stricture, male, unspecified site; Z79.899 Other long term (current) drug therapy; Z87.440 Personal history of urinary (tract) infections; Z87.442 Personal history of urinary calculi; Z87.820 Personal history of traumatic brain injury; Z93.1 Gastrostomy status; Z93.0 Tracheostomy status
CPT/HCPCS: 36415; 71045; 76376; 80048; 80053; 81000; 83605; 83735; 84100; 85025; 85610-TC; 85730-TC; 87040-TC; 87070-TC; 87081; 87086; 87205-TC; 93005; 94002; 94003; 94640; 96365; 96367; 99291; G0378; J0692; J1170; J1650; J2001; J2543; J3370; J7060

== ENCOUNTER 2022-07-17 09:47 | Inpatient (IN) | payer OTHER, MEDICAID ==
[2022-07-17] VITALS (11 sets, daily range): BP systolic 89–122
[~2022-07-17] VITALS: Ht 172.7 cm; Wt 86.2 kg
[2022-07-17] MEDS ORDERED: PIPERACILLIN/TAZO 3.375 GM in NS 50 ML IV ONE (10:15)
[2022-07-17] MEDS ORDERED: NACL 0.9% 1,000 ML IV ONE ×2 (10:15→13:45)
[2022-07-17] MEDS ORDERED: ALBUTEROL SULFATE 0.083% 2.5 MG/3 ML VIAL.NEB INH ONE (10:15)
[2022-07-17] MEDS ORDERED: VANCOMYCIN HCL 1,000 MG in NS 250 ML IV ONE (10:15)
[2022-07-17] MEDS ORDERED: methylPREDNISolone SOD SUCC/PF 62.5 MG/ML VIAL IVP ONE (10:15)
[2022-07-17] MEDS ORDERED: ACETAMINOPHEN 650 MG SUPP.RECT RC ONE (10:15)
[2022-07-17] MEDS ORDERED: VANCOMYCIN HCL 1000 MG/VIAL IV ONE (10:17)
[2022-07-17] MEDS ORDERED: PIPERACILLIN/TAZOBACTAM 3.375 GM/VIAL (ZOSYN) IV ONE (10:17)
[2022-07-17] MEDS ORDERED: LIDOCAINE JECT 2% PF 100 MG/5ML SYRINGE ONE (10:42)
--- NOTE | 2022-07-17 10:59 | NUR ---
Placed in room 1 . Placed on numerical control router operator, blood pressure machine and pulse oximeter. To gown for exam. Side rails up.
--- NOTE | 2022-07-17 11:02 | NUR ---
MULTIPLE UNSUCCESSFUL ATTEMPTS AT GETTING IV'D VIA ULTRASOUND BY DR LARA. ALSO MULTIPLE ATTEMPTS TO GET PERIPHERAL IV'S BY RN'S. 1 SUCCESSFUL #22 TO RT FOOT BY DIONISIO SWARTZ. MEDICATED WITH SOLUMEDROL AND IV FLUIDS AT SI TIME, TOLERATING WELL.
[2022-07-17 11:21] LABS: ANION GAP 7 (5-15); CALCIUM 9.7 mg/dL (8.4-11.0); CHLORIDE 94 mmol/L (98-107); GLUCOSE 127 mg/dL (70-99); POTASSIUM 4.9 mmol/L (3.5-5.1); UREA NITROGEN, BLOOD 17 mg/dL (8-21)
[2022-07-17 11:25] LABS: GFR AFRICAN AMERICAN 129 mL/min (>90)
--- NOTE | 2022-07-17 11:26 | NUR ---
LEIDY PICC LINE RN AT BEDSIDE ASSISTING WITH ULTRSAOUND GUIDED IV, BUT UNSUCCESSFUL AFTER MULTIPLE ATTEMPTS. DR LARA NOTIFIED.
[2022-07-17 11:29] LABS: PROTHROMBIN TIME 10.2 SECS (9.5-12.5)
[2022-07-17 11:30] LABS: BASOPHILS # (AUTO) 0.1 K/uL (0.0-0.2); BASOPHILS % (AUTO) 0.6 % (0.0-2.0); EOSINOPHILS % (AUTO) 0.2 % (0.0-4.0); HEMATOCRIT 36.5 % (36-54); HEMOGLOBIN 12.3 g/dL (14.0-18.0); LYMPHOCYTES # (AUTO) 2.5 K/uL (1.0-5.5); LYMPHOCYTES % (AUTO) 13.5 % (20.5-51.5); MEAN CORPUSCULAR HEMOGLOBIN 30 pg (27-31); MEAN CORPUSCULAR HGB CONC 34 % (32-36); MEAN CORPUSCULAR VOLUME 89 fL (79.0-98.0); MONOCYTES # (AUTO) 3.1 K/uL (0.0-1.0); MONOCYTES % (AUTO) 16.5 % (1.7-9.3); NEUTROPHILS # (AUTO) 12.9 K/uL (1.8-7.7); NEUTROPHILS % (AUTO) 69.2 % (40.0-70.0); PLATELET COUNT (AUTO) 310 K/uL (130-430); RED BLOOD CELL COUNT(AUTO) 4.09 MIL/uL (4.2-6.2); RED CELL DISTRIBUTION WIDTH 14.2 % (9.0-15.0); WHITE BLOOD COUNT (AUTO) 18.6 K/uL (4.8-10.8)
[2022-07-17 11:31] LABS: ACETAMINOPHEN 6 ug/mL (1-30); ALANINE AMINOTRANSFERASE 13 U/L (12-78); ALBUMIN 2.9 g/dL (3.4-4.8); ASPARTATE AMINOTRANSFERASE 18 U/L (10-37); TOTAL BILIRUBIN 0.2 mg/dL (0.0-1.0)
[2022-07-17] MEDS ORDERED: ACETAMINOPHEN 325 MG SUPP.RECT RC ONE (11:34)
--- NOTE | 2022-07-17 11:50 | NUR ---
TRANSFERRED PATIENT TO CT AND BACK TO ER 1 VIA VENT. NO RESPIRATORY DISTRESS NOTED. SPO2 100%, HR 124.
[2022-07-17] MEDS ORDERED: levETIRAcetam 500 MG IV PREMIX 100 ML IV ONE (13:30)
--- NOTE | 2022-07-17 13:57 | NUR ---
MIDLINE TO RIGHT UPPER ARM, DOUBLE LUMEN-BARD BY PICC LINE RN, OK TO USE BY DR LARA AND XRAY TO COMFIRM PLACEMENT.
--- NOTE | 2022-07-17 16:08 | NUR ---
DR UNGER BY BEDSIDE TO EXAM PT. UPDATED ON STATUS.
--- NOTE | 2022-07-17 16:54 | NUR ---
NO ACUTE CHNAGES IN CONDITION, PT STABLE FOR TRANSFER. VSS.
[2022-07-17 17:03] LABS: BILIRUBIN,URINE NEGATIVE (NEGATIVE); BLOOD, URINE 2+ (NEGATIVE); CLARITY/URINE SL CLOUDY (CLEAR); COLOR,URINE YELLOW (YELLOW); GLUCOSE,URINE NEGATIVE (NEGATIVE); KETONES,URINE NEGATIVE (NEGATIVE); LEUKOCYTE ESTERASE ,URINE 3+ (NEGATIVE); NITRITE, URINE NEGATIVE (NEGATIVE); PH,URINE 5.5 (5.0-8.0); PROTEIN URINE TRACE (NEGATIVE); UROBILINOGEN,URINE 0.2 (0.2-1.0)
[2022-07-17 17:34] LABS: BACTERIA,URINE FEW /HPF (None Seen); WBC,URINE >100 /HPF (0-3)
[2022-07-17 17:35] LABS: MUCUS,URINE None Seen /LPF (None Seen)
--- NOTE | 2022-07-17 17:36 | NUR ---
Patient will be admitted to care of DR EDOUARD. Admitted to unit. Will go to room . Belongings list completed. Complete and up to date summary report printed. SBAR report to be given at bedside with opportunity for questions.
[2022-07-17] MEDS: KCL 20 mEq in D5NS 1000 mL 1,000 ML IV SCH (19:02)
--- NOTE | 2022-07-17 19:07 | NUR ---
Called and spoke to Dr Abdi. Updated MD with 2nd lactic acid 6.4. Orders to follow.
[2022-07-17] MEDS ORDERED: ACETAMINOPHEN 650 MG/20.3 ML UDC GT PRN (19:30)
[2022-07-17] MEDS ORDERED: ALBUTEROL SULFATE 0.083% 2.5 MG/3 ML VIAL.NEB INH PRN (19:30)
[2022-07-17] MEDS ORDERED: MEROPENEM 500 MG in NS 50 ML IV ONE (19:45)
[2022-07-17] MEDS ORDERED: VALPROIC ACID ORAL SYRUP 250 MG/5 ML UDC GT SCH (21:00)
[2022-07-17] MEDS: LevETIRAcetam 500 MG/5 ML UDC ORAL LIQUID GT SCH (21:00)
[2022-07-17] MEDS ORDERED: CHLORHEXIDINE GLUCONATE 15 ML/DOSE, 480 ML MM SCH (21:00)
[2022-07-18] VITALS (30 sets, daily range): BP systolic 98–151
[2022-07-18] MEDS: LANSOPRAZOLE 30 MG CAPSULE.DR GT SCH ×3 (00:56→20:07)
[2022-07-18] MEDS: SENNOSIDES 8.6 MG TABLET GT SCH ×2 (00:57→20:08)
[2022-07-18] MEDS: DOCUSATE SODIUM 100 MG CAPSULE PO SCH ×3 (00:57→20:08)
[2022-07-18] MEDS: METOPROLOL TARTRATE 25 MG TABLET GT SCH ×3 (00:57→20:08)
[2022-07-18] MEDS: ENOXAPARIN SODIUM 40 MG/0.4 ML SYRINGE SUBCUT SCH ×2 (00:58→20:09)
--- NOTE | 2022-07-18 01:00 | NUR ---
pattern perforating machine operator CHECKED [facility] FOR LIQUID KEPPRA AND DEPAKOTE. WILL NEED TO WAIT FOR PHARMACY IN THE MORNING FOR LIQUID.
[2022-07-18] MEDS: KCL 20 mEq in D5NS 1000 mL 1,000 ML IV SCH ×3 (03:00→23:00)
[2022-07-18] MEDS ORDERED: MEROPENEM 500 MG in NS 50 ML IV SCH (06:00)
[2022-07-18 06:11] LABS: HEMATOCRIT 30.9 % (36-54); HEMOGLOBIN 10.5 g/dL (14.0-18.0); MEAN CORPUSCULAR HEMOGLOBIN 30 pg (27-31); MEAN CORPUSCULAR HGB CONC 34 % (32-36); MEAN CORPUSCULAR VOLUME 89 fL (79.0-98.0); PLATELET COUNT (AUTO) 296 K/uL (130-430); RED BLOOD CELL COUNT(AUTO) 3.48 MIL/uL (4.2-6.2); RED CELL DISTRIBUTION WIDTH 14.3 % (9.0-15.0); WHITE BLOOD COUNT (AUTO) 22.8 K/uL (4.8-10.8)
[2022-07-18 06:35] LABS: CREATININE 0.58 mg/dL (0.55-1.30)
--- NOTE | 2022-07-18 08:00 | NUR ---
AM ASSESSMENT PT AFEBRILE, ORAL CARE DONE, REPOSITIONED IN BED, CONTRACTED EXTREMITIES, LEFT ELBOW NOTED WITH BLANCHABLE REDNESS, COVERED WITH FOAM DRESSING TO PROTECT FOR FURTHER SKIN INJURY. SUPRAPUBIC CATHETER DRAINING WELL. IVF INFUSING D5 NS WITH 20 MEQ KCL AT 100 ML PER HR.
[2022-07-18] MEDS: MULTIVITAMINS TAB 1 TABLET GT SCH (08:28)
[2022-07-18] MEDS: amLODIPine BESYLATE 10 MG TABLET PO SCH (08:28)
[2022-07-18] MEDS: LevETIRAcetam 500 MG/5 ML UDC ORAL LIQUID GT SCH ×2 (08:29→20:07)
[2022-07-18] MEDS: CHLORHEXIDINE GLUC 0.12% 15 ML MOUTHWASH UDC MM SCH ×2 (08:29→20:08)
[2022-07-18] MEDS: VALPROIC ACID ORAL SYRUP 250 MG/5 ML UDC GT SCH ×2 (08:29→20:07)
[2022-07-18] MEDS ORDERED: LACTOBACILLUS RHAMNOSUS GG 1 CAP CAPSULE GT ONE (10:15)
[2022-07-18] MEDS ORDERED: SODIUM CHLORIDE 500 MG TABLET GT ONE (10:15)
[2022-07-18] MEDS: PIPERACILLIN/TAZO 4.5GM/DEX-IS 100 ML IV SCH ×2 (14:12→22:57)
--- NOTE | 2022-07-18 15:15 | NUR ---
WOUND EVALUATION: Late note for 07/18/2022 at 1515 secondary to patient care. Wound Consult received from Dr. Abdi. Thank you, Dr. Abdi, for the consult. Patient received in a Haylie Bed with an Isoflex JESSICA mattress, awake, nonverbal, nonresponsive to verbal commands. Patient is unable to turn in bed independently. Broderick Score is a 12. Past Medical History: Hypertension, Traumatic Brain Injury, Chronic Encephalopathy, Seizure disorder, Chronic Respiratory Failure, G-tube placement, Tracheostomy. Recent Labs: WBC 22.8, RBC 3.48, hemoglobin 10.5, hematocrit 30.9, BUN 13, creatinine 0.58, GFR 154, glucose 162, albumin 2.9. Microbiology: MRSA screen results negative. Urine culture results inconclusive, possible contamination. Blood culture results x2 in progress. Endotracheal sputum culture results in progress. Intrinsic factors that delay wound healing: Traumatic Brain Injury, Chronic Encephalopathy, Chronic Respiratory Failure, Hypoalbuminemia, Hyperglycemia. Extrinsic factors that delay wound healing: Immobility. Wound Assessment: 1. Left Medial Elbow: Manageable redness from flexion upper extremity abduction contracture, present on admission. No odor, no drainage. felix-wound intact. Measures 5.0 cm x 2.2 cm. Recommend: Cover site with foam dressing for protection. Place pillow or towel rolls in between extremity and trunk to offload site at all times. Perform dressing change daily and assessment of site every shift with peel and peek, and as needed for dressing soiling or dislodgement. 2. Sacral-Coccygeal/Intergluteal Cleft areas: Scar tissue from prior pressure ulcer, present on admission. Recommend: Cover site with Sacral foam dressing for protection. Assess site every shift with peel and peak change dressing daily, and as needed for dressing soiling or dislodgment. Apply moisture barrier cream around perimeter of dressing to protect area from incontinence. 3. Left Posterior Heel: Blanchable redness, present on admission. Recommend: Cover heel with foam dressing for protection. Elevate, offload and float bilateral heels with 1 pillow lengthwise and each extremity at all times. Do not allow heels to touch bed, or other surfaces at any time. Also recommend: Reposition patient side to side only every 2 hours with pillow support and off-load pressure areas with pillows for pressure re-distribution. Offload, elevate and float bilateral heels with pillows. Perform skin care and monitor skin integrity Q shift. Use moisture barrier cream on buttocks and other moisture susceptible areas QID and as needed for soiling. Place patient on a P500 low air-loss mattress.
[2022-07-18] MEDS: LINEZOLID 300 ML IV SCH ×2 (15:18→22:58)
--- NOTE | 2022-07-18 19:00 | NUR ---
REPORT GIVEN TO MAXIME NICOLAS. PT WITH STABLE VITAL SIGNS, TURNED AND REPOSITIONED IN BED.
[2022-07-18] MEDS: LACTOBACILLUS RHAMNOSUS GG 1 CAP CAPSULE GT SCH (20:06)
[2022-07-18] MEDS: SODIUM CHLORIDE 500 MG TABLET GT SCH (20:08)
[2022-07-19] VITALS (28 sets, daily range): BP systolic 90–139
[2022-07-19 00:44] LABS: BAND % (MANUAL) 12 % (0-6); BASOPHILS % (MANUAL) 0 % (0-2); EOSINOPHILS % (MANUAL) 0 % (0-7); LYMPHOCYTES % (MANUAL) 9 % (20-46); MONOCYTES % (MANUAL) 5 % (0-11)
[2022-07-19 00:45] LABS: METAMYELOCYTES % 6 % (0-0)
[2022-07-19] MEDS: PIPERACILLIN/TAZO 4.5GM/DEX-IS 100 ML IV SCH ×3 (06:40→22:49)
[2022-07-19 07:17] LABS: CALCIUM 8.4 mg/dL (8.4-11.0); CREATININE 0.57 mg/dL (0.55-1.30); POTASSIUM 4.6 mmol/L (3.5-5.1)
[2022-07-19] MEDS: LACTOBACILLUS RHAMNOSUS GG 1 CAP CAPSULE GT SCH ×2 (08:41→20:32)
[2022-07-19] MEDS: MULTIVITAMINS TAB 1 TABLET GT SCH (08:41)
[2022-07-19] MEDS: DOCUSATE SODIUM 100 MG CAPSULE PO SCH ×2 (08:43→20:32)
[2022-07-19] MEDS: LANSOPRAZOLE 30 MG CAPSULE.DR GT SCH ×2 (08:43→20:32)
[2022-07-19] MEDS: amLODIPine BESYLATE 10 MG TABLET PO SCH (08:43)
[2022-07-19] MEDS: METOPROLOL TARTRATE 25 MG TABLET GT SCH ×2 (08:43→20:35)
[2022-07-19] MEDS: CHLORHEXIDINE GLUC 0.12% 15 ML MOUTHWASH UDC MM SCH ×2 (08:44→20:31)
[2022-07-19] MEDS: VALPROIC ACID ORAL SYRUP 250 MG/5 ML UDC GT SCH ×2 (08:44→20:31)
[2022-07-19] MEDS: LevETIRAcetam 500 MG/5 ML UDC ORAL LIQUID GT SCH ×2 (08:45→20:30)
[2022-07-19 09:05] LABS: TOTAL IRON BIND. CAPACITY 203 ug/dL (250-450)
[2022-07-19] MEDS: LINEZOLID 300 ML IV SCH ×2 (10:26→23:00)
[2022-07-19 11:02] LABS: BASOPHILS # (AUTO) 0.1 K/uL (0.0-0.2); BASOPHILS % (AUTO) 0.9 % (0.0-2.0); EOSINOPHILS # (AUTO) 0.1 K/uL (0.0-0.4); EOSINOPHILS % (AUTO) 0.8 % (0.0-4.0); HEMATOCRIT 34.4 % (36-54); LYMPHOCYTES # (AUTO) 3.4 K/uL (1.0-5.5); LYMPHOCYTES % (AUTO) 22.3 % (20.5-51.5); MEAN CORPUSCULAR HEMOGLOBIN 32 pg (27-31); MEAN CORPUSCULAR HGB CONC 35 % (32-36); MEAN CORPUSCULAR VOLUME 91 fL (79.0-98.0); MONOCYTES # (AUTO) 1.9 K/uL (0.0-1.0); MONOCYTES % (AUTO) 12.3 % (1.7-9.3); NEUTROPHILS # (AUTO) 9.8 K/uL (1.8-7.7); NEUTROPHILS % (AUTO) 63.7 % (40.0-70.0); PLATELET COUNT (AUTO) 212 K/uL (130-430); RED BLOOD CELL COUNT(AUTO) 3.79 MIL/uL (4.2-6.2); RED CELL DISTRIBUTION WIDTH 14.8 % (9.0-15.0); WHITE BLOOD COUNT (AUTO) 15.4 K/uL (4.8-10.8)
[2022-07-19] MEDS: KCL 20 mEq in D5NS 1000 mL 1,000 ML IV SCH (11:51)
[2022-07-19] MEDS: SODIUM CHLORIDE 500 MG TABLET GT SCH ×2 (11:51→20:32)
--- NOTE | 2022-07-19 12:44 | NUR ---
Dietitian Recommendations * Obtain working TF pump to initiate continuous TF: Glucerna 1.5 at 60 ml/hr (goal rate), Logan BID, Free Water Flush: 250 ml Q6h via GT Provides: 2320 kcal/day, 124 gm protein/day, and 2093 ml free water/day Meets: 95% of upper end of estimated caloric needs, 89% of upper end of estimated protein needs, and 99% of lower end of estimated fluid needs * If bolus feedings continue: Glucerna 1.5 bolus feeds 240 ml Q4h (1440 ml/day), Logan BID, Free Water Flush: 250 ml Q6h via GT Provides: 2320 kcal/day, 124 gm protein/day, and 2093 ml free water/day Meets: 95% of upper end of estimated caloric needs, 89% of upper end of estimated protein needs, and 99% of lower end of estimated fluid needs LP, MS, RD Please refer to Nutrition Assessment for details. Addendum: 07/19/22 at [address] Amended: Links added.
--- NOTE | 2022-07-19 15:45 | NUR ---
CENTRAL LINE DRESSING REMOVED, BIOPATCH MISSING TO SITE. CLEANSED AREA, NO REDNESS, NO LEAKS, BIOPATCH APPLIED TO SITE, PLACED TRANSPARENT DRESSING TO COVER.
--- NOTE | 2022-07-19 20:00 | NUR ---
OPENING NOTE PT IS AAX0. PT HAS NO CARDIAC CONCERNS AT THIS TIME. VENTILATOR SETTINGS SET AT AC 14 30% 500 5. PT SAT'S ARE AT 99%. PT SKIN HAS REDNESS ON LEFT ELBOW WITH PADDED DRESSING. PT HAS REDNESS AT INTERSECTION OF CONTRACTURED LEGS WITH PILLOW PLACED IN BETWEEN TO PREVENT FURTHER DAMAGE. PT HAS 20 GA LEFT FOREARM WITH LINE FLUSHED. PT HAS MIDLINE ACCESS IN RIGHT UPPER CHEST WITH LINE FLUSHED. G TUBE AND SUPRAPUBIC CATHETER WERE INSPECTED TO ENSURE THEY WERE CLEAN WITH NO VISIBLE DRAINAGE. URINE OUTPUT OF 700ML. ALL SAFETY PRECAUTIONS IN PLACE AND WILL CONTINUE TO MONITOR.
[2022-07-19] MEDS: SENNOSIDES 8.6 MG TABLET GT SCH (20:31)
[2022-07-19] MEDS: ENOXAPARIN SODIUM 40 MG/0.4 ML SYRINGE SUBCUT SCH (20:35)
[2022-07-20] VITALS (26 sets, daily range): BP systolic 94–162
[2022-07-20] MEDS: KCL 20 mEq in D5NS 1000 mL 1,000 ML IV SCH ×2 (01:41→16:05)
[2022-07-20] MEDS: PIPERACILLIN/TAZO 4.5GM/DEX-IS 100 ML IV SCH ×3 (06:00→20:58)
[2022-07-20 06:52] LABS: BASOPHILS # (AUTO) 0.1 K/uL (0.0-0.2); BASOPHILS % (AUTO) 0.5 % (0.0-2.0); EOSINOPHILS # (AUTO) 0.2 K/uL (0.0-0.4); EOSINOPHILS % (AUTO) 1.5 % (0.0-4.0); HEMATOCRIT 30.9 % (36-54); HEMOGLOBIN 10.7 g/dL (14.0-18.0); LYMPHOCYTES # (AUTO) 1.9 K/uL (1.0-5.5); LYMPHOCYTES % (AUTO) 16.7 % (20.5-51.5); MEAN CORPUSCULAR HEMOGLOBIN 31 pg (27-31); MEAN CORPUSCULAR HGB CONC 35 % (32-36); MEAN CORPUSCULAR VOLUME 89 fL (79.0-98.0); MONOCYTES # (AUTO) 1.9 K/uL (0.0-1.0); MONOCYTES % (AUTO) 16.1 % (1.7-9.3); NEUTROPHILS # (AUTO) 7.6 K/uL (1.8-7.7); NEUTROPHILS % (AUTO) 65.2 % (40.0-70.0); PLATELET COUNT (AUTO) 291 K/uL (130-430); RED BLOOD CELL COUNT(AUTO) 3.48 MIL/uL (4.2-6.2); RED CELL DISTRIBUTION WIDTH 14.3 % (9.0-15.0); WHITE BLOOD COUNT (AUTO) 11.6 K/uL (4.8-10.8)
[2022-07-20 07:33] LABS: ALBUMIN 2.4 g/dL (3.4-4.8); CALCIUM 8.6 mg/dL (8.4-11.0); CREATININE 0.58 mg/dL (0.55-1.30); POTASSIUM 3.8 mmol/L (3.5-5.1); TOTAL BILIRUBIN 0.2 mg/dL (0.0-1.0)
--- NOTE | 2022-07-20 08:00 | NUR ---
KHALIF PHAM FREIGHT FLAGMAN IS IN CHARGE OF THIS PATIENT/VS STABLE, NO SEIZURE ACTIVITY SEEN, PT TF RUNNING AT 50CC/H, PT TOLERATING WELL, NO S/S OF DISTRESS, PT NOT FOLLOWING COMMANDS//MW
[2022-07-20 08:06] LABS: FOLATE (FOLIC ACID) 16.7 ng/mL (>3.0)
[2022-07-20] MEDS: SODIUM CHLORIDE 500 MG TABLET GT SCH ×2 (08:40→20:56)
[2022-07-20] MEDS: LACTOBACILLUS RHAMNOSUS GG 1 CAP CAPSULE GT SCH ×2 (08:40→20:56)
[2022-07-20] MEDS: LANSOPRAZOLE 30 MG CAPSULE.DR GT SCH ×2 (08:40→20:56)
[2022-07-20] MEDS: VALPROIC ACID ORAL SYRUP 250 MG/5 ML UDC GT SCH ×2 (08:41→20:55)
[2022-07-20] MEDS: LevETIRAcetam 500 MG/5 ML UDC ORAL LIQUID GT SCH ×2 (08:42→20:56)
[2022-07-20] MEDS: METOPROLOL TARTRATE 25 MG TABLET GT SCH ×2 (08:42→20:57)
[2022-07-20] MEDS: DOCUSATE SODIUM 100 MG CAPSULE PO SCH ×2 (08:42→20:56)
[2022-07-20] MEDS: amLODIPine BESYLATE 10 MG TABLET PO SCH (08:43)
[2022-07-20] MEDS: CHLORHEXIDINE GLUC 0.12% 15 ML MOUTHWASH UDC MM SCH ×2 (08:43→20:56)
[2022-07-20] MEDS: MULTIVITAMINS TAB 1 TABLET GT SCH (08:43)
[2022-07-20] MEDS: LINEZOLID 300 ML IV SCH ×2 (12:17→22:30)
--- NOTE | 2022-07-20 20:00 | NUR ---
OPENING NOTE PT IS AAX0. PT HAS NO CARDIAC CONCERNS AT THIS TIME. VENTILATOR SETTINGS SET AT A/C 14 40% 500 5. PT SAT'S ARE AT 96%. PT SKIN HAS REDNESS ON LEFT ELBOW WITH PADDED DRESSING. PT HAS REDNESS AT INTERSECTION OF CONTRACTURED LEGS WITH PILLOW PLACED IN BETWEEN TO PREVENT FURTHER DAMAGE. PT HAS 20 GA LEFT FOREARM WITH LINE FLUSHED. PT HAS DOUBLE LUMEN MIDLINE ACCESS IN RIGHT UPPER CHEST WITH LINE FLUSHED. G TUBE HAS GLUCERNA 1.5 @ 60 AND SUPRAPUBIC CATHETER WERE INSPECTED TO ENSURE THEY WERE CLEAN WITH NO VISIBLE DRAINAGE. URINE OUTPUT IN FLOEY BAG WAS YELLOW AND CLOUDY AND 300ML IN BAG..
[2022-07-20] MEDS: ENOXAPARIN SODIUM 40 MG/0.4 ML SYRINGE SUBCUT SCH (20:56)
[2022-07-20] MEDS: SENNOSIDES 8.6 MG TABLET GT SCH (20:59)
[2022-07-21] VITALS (32 sets, daily range): BP systolic 91–137
[2022-07-21] MEDS: KCL 20 mEq in D5NS 1000 mL 1,000 ML IV SCH ×2 (06:16→21:28)
[2022-07-21] MEDS: PIPERACILLIN/TAZO 4.5GM/DEX-IS 100 ML IV SCH ×3 (06:17→21:03)
[2022-07-21 06:41] LABS: BASOPHILS # (AUTO) 0.1 K/uL (0.0-0.2); BASOPHILS % (AUTO) 0.6 % (0.0-2.0); EOSINOPHILS # (AUTO) 0.2 K/uL (0.0-0.4); EOSINOPHILS % (AUTO) 2.2 % (0.0-4.0); HEMATOCRIT 32.7 % (36-54); HEMOGLOBIN 11.3 g/dL (14.0-18.0); LYMPHOCYTES # (AUTO) 1.7 K/uL (1.0-5.5); LYMPHOCYTES % (AUTO) 17.2 % (20.5-51.5); MEAN CORPUSCULAR HEMOGLOBIN 31 pg (27-31); MEAN CORPUSCULAR HGB CONC 35 % (32-36); MEAN CORPUSCULAR VOLUME 88 fL (79.0-98.0); MONOCYTES # (AUTO) 1.4 K/uL (0.0-1.0); MONOCYTES % (AUTO) 13.8 % (1.7-9.3); NEUTROPHILS # (AUTO) 6.5 K/uL (1.8-7.7); NEUTROPHILS % (AUTO) 66.2 % (40.0-70.0); PLATELET COUNT (AUTO) 297 K/uL (130-430); RED BLOOD CELL COUNT(AUTO) 3.69 MIL/uL (4.2-6.2); RED CELL DISTRIBUTION WIDTH 14.4 % (9.0-15.0); WHITE BLOOD COUNT (AUTO) 9.8 K/uL (4.8-10.8)
[2022-07-21 07:20] LABS: CALCIUM 8.7 mg/dL (8.4-11.0); CREATININE 0.59 mg/dL (0.55-1.30); POTASSIUM 3.8 mmol/L (3.5-5.1)
--- NOTE | 2022-07-21 07:31 | NUR ---
opening notes: received report from endorsing night shift manager RN for continuity of care, patient lying on bed with an IVF of KCL 20meQ in D5W @ 60 ml/hr. on Ac rate of 14, tidal volume 500, 40% and PEEP of 5, tube feeding of GLucerna 1.5 @ 60 ml/hr. yee catheter in place, yellow urine in color fraining to gravity, vital signs temperature 97.2 heart rate 76 respiratory rate 7, ocygen saturation 98 and blood pressure 118/47. no signs of acute distress noted at this time, will continue to monitor.
--- NOTE | 2022-07-21 08:02 | NUR ---
AC rate of 14, tidal volume 500, Fio2 30 and PEEP of 5. oxygen saturation 96%
[2022-07-21] MEDS: amLODIPine BESYLATE 10 MG TABLET PO SCH (08:23)
[2022-07-21] MEDS: LANSOPRAZOLE 30 MG CAPSULE.DR GT SCH ×2 (08:24→21:02)
[2022-07-21] MEDS: DOCUSATE SODIUM 100 MG CAPSULE PO SCH ×2 (08:24→21:02)
[2022-07-21] MEDS: MULTIVITAMINS TAB 1 TABLET GT SCH (08:25)
[2022-07-21] MEDS: CHLORHEXIDINE GLUC 0.12% 15 ML MOUTHWASH UDC MM SCH ×2 (08:28→21:00)
[2022-07-21] MEDS: VALPROIC ACID ORAL SYRUP 250 MG/5 ML UDC GT SCH ×2 (08:29→21:00)
[2022-07-21] MEDS: LevETIRAcetam 500 MG/5 ML UDC ORAL LIQUID GT SCH ×2 (08:29→21:00)
[2022-07-21] MEDS: SODIUM CHLORIDE 500 MG TABLET GT SCH ×2 (08:29→21:00)
[2022-07-21] MEDS: LACTOBACILLUS RHAMNOSUS GG 1 CAP CAPSULE GT SCH ×2 (08:32→21:00)
[2022-07-21] MEDS: METOPROLOL TARTRATE 25 MG TABLET GT SCH ×2 (10:11→21:02)
[2022-07-21] MEDS: LINEZOLID 300 ML IV SCH ×2 (10:41→22:50)
[2022-07-21] MEDS: SENNOSIDES 8.6 MG TABLET GT SCH (21:00)
[2022-07-21] MEDS: ENOXAPARIN SODIUM 40 MG/0.4 ML SYRINGE SUBCUT SCH (21:02)
[2022-07-22] VITALS (34 sets, daily range): BP systolic 83–141
[2022-07-22] MEDS: PIPERACILLIN/TAZO 4.5GM/DEX-IS 100 ML IV SCH ×3 (05:54→21:35)
--- NOTE | 2022-07-22 06:18 | NUR ---
TOLERATING VENT SETTINGS NO DISTRESS, WHITISH SECRETIONS VIA TRACHE AND ORALLY, TOLERATING TUBE FEEDING GOOD OUTPUT UNEVENTFUL NIGHT VSS, AFEBRILE CONT TO MONITOR.
[2022-07-22 07:03] LABS: BASOPHILS # (AUTO) 0.1 K/uL (0.0-0.2); BASOPHILS % (AUTO) 0.7 % (0.0-2.0); EOSINOPHILS # (AUTO) 0.2 K/uL (0.0-0.4); EOSINOPHILS % (AUTO) 1.4 % (0.0-4.0); HEMATOCRIT 35.1 % (36-54); HEMOGLOBIN 12.1 g/dL (14.0-18.0); LYMPHOCYTES % (AUTO) 26.7 % (20.5-51.5); MEAN CORPUSCULAR HEMOGLOBIN 31 pg (27-31); MEAN CORPUSCULAR HGB CONC 34 % (32-36); MEAN CORPUSCULAR VOLUME 90 fL (79.0-98.0); MONOCYTES # (AUTO) 1.7 K/uL (0.0-1.0); MONOCYTES % (AUTO) 11.2 % (1.7-9.3); PLATELET COUNT (AUTO) 314 K/uL (130-430); RED BLOOD CELL COUNT(AUTO) 3.92 MIL/uL (4.2-6.2); RED CELL DISTRIBUTION WIDTH 14.1 % (9.0-15.0); WHITE BLOOD COUNT (AUTO) 15.1 K/uL (4.8-10.8)
[2022-07-22 08:06] LABS: CALCIUM 9.1 mg/dL (8.4-11.0); CREATININE 0.63 mg/dL (0.55-1.30); POTASSIUM 4.4 mmol/L (3.5-5.1)
[2022-07-22] MEDS: amLODIPine BESYLATE 10 MG TABLET PO SCH (09:00)
[2022-07-22] MEDS: LACTOBACILLUS RHAMNOSUS GG 1 CAP CAPSULE GT SCH ×2 (09:17→21:30)
[2022-07-22] MEDS: LANSOPRAZOLE 30 MG CAPSULE.DR GT SCH ×2 (09:18→21:32)
[2022-07-22] MEDS: VALPROIC ACID ORAL SYRUP 250 MG/5 ML UDC GT SCH ×2 (09:18→21:31)
[2022-07-22] MEDS: LevETIRAcetam 500 MG/5 ML UDC ORAL LIQUID GT SCH ×2 (09:18→21:31)
[2022-07-22] MEDS: MULTIVITAMINS TAB 1 TABLET GT SCH (09:19)
[2022-07-22] MEDS: METOPROLOL TARTRATE 25 MG TABLET GT SCH ×2 (09:19→21:33)
[2022-07-22] MEDS: SODIUM CHLORIDE 500 MG TABLET GT SCH ×2 (09:20→21:34)
[2022-07-22] MEDS: CHLORHEXIDINE GLUC 0.12% 15 ML MOUTHWASH UDC MM SCH ×2 (09:20→21:34)
[2022-07-22] MEDS: DOCUSATE SODIUM 100 MG/10 ML UDC PO SCH ×2 (09:51→21:34)
[2022-07-22] MEDS: LINEZOLID 300 ML IV SCH (11:12)
[2022-07-22] MEDS: KCL 20 mEq in D5NS 1000 mL 1,000 ML IV SCH (11:19)
[2022-07-22] MEDS: FLUCONAZOLE 200 mg/ NS 100 ML IV SCH (14:42)
--- NOTE | 2022-07-22 19:10 | NUR ---
RECD PATIENT ASSUMED CARE REPORT GIVEN BY MAXIME TANG,1999 PATIENT ASSESSMENT DONE AWAKE AND TRACKS, VSS, TACHYCARDIC WITH TEMP 100.6 PATIENT IS LYING IN LARGE POOP EVEN DRIED UP TO LOWER LEGS. SUCTIONED SECRETIONS., CLEANED AND SCRUB NICELY TOLERATING TUBE FEEDING.
--- NOTE | 2022-07-22 19:14 | NUR ---
Nutrition F/U RD reviewed pt's current EMR including diet hx, physician notes, nursing notes, pertinent labs/meds/procedures, care trends, and care activity. Short note due to high RD workload. Current Diet Order/ Nutrition Support: NPO Glucerna 1.5 @ 60mL (goal rate) x 24h; Logan BID; free water flush 250mL q6h; via GT x 3 days Subjective Info: Glucerna 1.5 seen running @ 60mL in patient room with noted 0 mL residuals, pt tolerating. Per EMR, LBM 07/20 x 1 (500mL). Patient noted with soft, non-distended abdomen. Broderick 12: pt noted with multiple wounds, wound care noted. Dietitian Recommendations * Continue current EN regimen: Glucerna 1.5 @60mL (goal rate) x 24h; Logan BID; free water flush 250mL q6h; via GT Provides 2320 kcal/day; 124g protein/day, and 2093 mL free water/day High Risk F/U in 2-3 days - 07/24-07/25
--- NOTE | 2022-07-22 19:24 | NUR ---
Dietitian Recommendations * Continue current EN regimen: Glucerna 1.5 @60mL (goal rate) x 24h; Logan BID; free water flush 250mL q6h; via GT Provides 2320 kcal/day; 124g protein/day, and 2093 mL free water/day Please refer to nutritional F/U for details, thanks! CC, MPH, RDN
[2022-07-22] MEDS: SENNOSIDES 8.6 MG TABLET GT SCH (21:34)
[2022-07-22] MEDS: ENOXAPARIN SODIUM 40 MG/0.4 ML SYRINGE SUBCUT SCH (21:38)
[2022-07-23] VITALS (28 sets, daily range): BP systolic 78–165
[2022-07-23] MEDS: KCL 20 mEq in D5NS 1000 mL 1,000 ML IV SCH ×2 (05:27→22:00)
[2022-07-23] MEDS: PIPERACILLIN/TAZO 4.5GM/DEX-IS 100 ML IV SCH ×3 (05:28→21:59)
--- NOTE | 2022-07-23 06:45 | NUR ---
HAD ANOTHER BM THIS AM CLEANED AND REPOSITION TO COMFORT.
[2022-07-23 07:32] LABS: BASOPHILS # (AUTO) 0.1 K/uL (0.0-0.2); BASOPHILS % (AUTO) 0.7 % (0.0-2.0); EOSINOPHILS # (AUTO) 0.1 K/uL (0.0-0.4); HEMATOCRIT 29.1 % (36-54); LYMPHOCYTES # (AUTO) 2.2 K/uL (1.0-5.5); LYMPHOCYTES % (AUTO) 14.7 % (20.5-51.5); MEAN CORPUSCULAR HEMOGLOBIN 31 pg (27-31); MEAN CORPUSCULAR HGB CONC 35 % (32-36); MEAN CORPUSCULAR VOLUME 90 fL (79.0-98.0); NEUTROPHILS # (AUTO) 10.6 K/uL (1.8-7.7); NEUTROPHILS % (AUTO) 70.6 % (40.0-70.0); PLATELET COUNT (AUTO) 294 K/uL (130-430); RED BLOOD CELL COUNT(AUTO) 3.24 MIL/uL (4.2-6.2); RED CELL DISTRIBUTION WIDTH 14.4 % (9.0-15.0)
--- NOTE | 2022-07-23 08:00 | NUR ---
AM ASSESSMENT PT'S TEMP 99.5, ON IVF D5NS WITH 20 MEQ KCL AT 65 ML PER HR, SALINE LOCK FROM LEFT UPPER ARM REMOVED, BLISTER NOTED. CONTRACTED EXTREMITIES. REPOSITIONED GENTLY IN BED. FEEDING VIA GTUBE T 60 ML PER HR. NO HIGH GASTRIC RESIDUAL WHEN ASPIRATED. CONTINUE CURRENT TREATMENTS.
[2022-07-23 08:03] LABS: CREATININE 0.65 mg/dL (0.55-1.30); POTASSIUM 3.8 mmol/L (3.5-5.1)
--- NOTE | 2022-07-23 08:14 | NUR ---
CALL: DR EDOUARD Number dialed [phone] EDOUARD TO ASK TO DOWNGRADE
[2022-07-23 08:24] LABS: CALCIUM 8.4 mg/dL (8.4-11.0)
[2022-07-23] MEDS: DOCUSATE SODIUM 100 MG/10 ML UDC PO SCH ×2 (08:34→21:53)
[2022-07-23] MEDS: SODIUM CHLORIDE 500 MG TABLET GT SCH ×2 (08:40→21:57)
[2022-07-23] MEDS: LevETIRAcetam 500 MG/5 ML UDC ORAL LIQUID GT SCH ×2 (08:40→21:57)
[2022-07-23] MEDS: VALPROIC ACID ORAL SYRUP 250 MG/5 ML UDC GT SCH ×2 (08:41→21:58)
[2022-07-23] MEDS: CHLORHEXIDINE GLUC 0.12% 15 ML MOUTHWASH UDC MM SCH ×2 (08:41→21:57)
[2022-07-23] MEDS: amLODIPine BESYLATE 10 MG TABLET PO SCH (08:44)
[2022-07-23] MEDS: MULTIVITAMINS TAB 1 TABLET GT SCH (08:44)
[2022-07-23] MEDS: LANSOPRAZOLE 30 MG CAPSULE.DR GT SCH ×2 (08:44→21:54)
[2022-07-23] MEDS: METOPROLOL TARTRATE 25 MG TABLET GT SCH ×2 (08:44→21:56)
[2022-07-23] MEDS: LACTOBACILLUS RHAMNOSUS GG 1 CAP CAPSULE GT SCH ×2 (08:44→21:58)
--- NOTE | 2022-07-23 10:30 | NUR ---
CALL: DR EDOUARD Number dialed [phone] EDOUARD TO ASK TO DOWNGRADE
[2022-07-23] MEDS ORDERED: ALBUMIN HUMAN 25% 50 ML IV ONE (11:00)
[2022-07-23] MEDS: FLUCONAZOLE 200 mg/ NS 100 ML IV SCH (15:02)
[2022-07-23] MEDS: SENNOSIDES 8.6 MG TABLET GT SCH (21:54)
[2022-07-23] MEDS: ENOXAPARIN SODIUM 40 MG/0.4 ML SYRINGE SUBCUT SCH (22:00)
[2022-07-24] VITALS (7 sets, daily range): BP systolic 98–136
[2022-07-24] MEDS: PIPERACILLIN/TAZO 4.5GM/DEX-IS 100 ML IV SCH ×3 (06:46→21:12)
[2022-07-24] MEDS: SODIUM CHLORIDE 500 MG TABLET GT SCH ×2 (08:11→20:42)
[2022-07-24] MEDS: amLODIPine BESYLATE 10 MG TABLET PO SCH (08:11)
[2022-07-24] MEDS: DOCUSATE SODIUM 100 MG/10 ML UDC PO SCH ×2 (08:11→20:46)
[2022-07-24] MEDS: MULTIVITAMINS TAB 1 TABLET GT SCH (08:11)
[2022-07-24] MEDS: METOPROLOL TARTRATE 25 MG TABLET GT SCH ×2 (08:11→20:49)
[2022-07-24] MEDS: LANSOPRAZOLE 30 MG CAPSULE.DR GT SCH ×2 (08:11→20:42)
[2022-07-24] MEDS: LACTOBACILLUS RHAMNOSUS GG 1 CAP CAPSULE GT SCH ×2 (08:12→20:43)
[2022-07-24] MEDS: CHLORHEXIDINE GLUC 0.12% 15 ML MOUTHWASH UDC MM SCH ×2 (08:12→20:44)
[2022-07-24] MEDS: LevETIRAcetam 500 MG/5 ML UDC ORAL LIQUID GT SCH ×2 (08:12→20:45)
[2022-07-24] MEDS: VALPROIC ACID ORAL SYRUP 250 MG/5 ML UDC GT SCH ×2 (08:12→20:45)
[2022-07-24] MEDS: KCL 20 mEq in D5NS 1000 mL 1,000 ML IV SCH (10:40)
[2022-07-24] MEDS: FLUCONAZOLE 200 mg/ NS 100 ML IV SCH (13:13)
--- NOTE | 2022-07-24 15:50 | NUR ---
Discharge Planning: DCP faxed pt referral to [facility] [phone] DCP to follow up
--- NOTE | 2022-07-24 17:38 | NUR ---
rn notes patient remains on the ventilator. no sob noted. a/o x 0. trach in tact and is patent. Vent working, alarms working. Tube feeding at gluc 1.2 with 60 ml which is goal. Plan is to dc back to SNF
--- NOTE | 2022-07-24 19:30 | NUR ---
Opening note Received report from day shift. Pt is lying in bed trach to vent. No s/s of respiratory distress. Breathing even and unlabored. Suprapubic catheter intact and draining by gravity. Tube feeding running at ordered rate. Fall and safety precautions in place
[2022-07-24] MEDS: SENNOSIDES 8.6 MG TABLET GT SCH (20:43)
[2022-07-24] MEDS: ENOXAPARIN SODIUM 40 MG/0.4 ML SYRINGE SUBCUT SCH (20:46)
[2022-07-25] VITALS (9 sets, daily range): BP systolic 99–134
--- NOTE | 2022-07-25 00:15 | NUR ---
Rounds Pt lying in bed, eyes closed. No s/s of acute distress. Fall and safety checks in place
[2022-07-25] MEDS: KCL 20 mEq in D5NS 1000 mL 1,000 ML IV SCH ×2 (04:26→22:26)
--- NOTE | 2022-07-25 04:32 | NUR ---
Rounds Pt lying in bed, eyes open. No s/s of acute distress. VSS. Fall and safety checks in place
[2022-07-25] MEDS: PIPERACILLIN/TAZO 4.5GM/DEX-IS 100 ML IV SCH (06:00)
--- NOTE | 2022-07-25 06:40 | NUR ---
Closing note Pt resting in bed, No s/s of respiratory distress. Breathing even and unlabored. Suprapubic catheter intact and draining by gravity. Tube feeding running at ordered rate. Fall and safety precautions in place. All needs met throughout shift. Fall and safety precautions in place with bed in lowest position, bed alarm on, call light within reach
[2022-07-25 08:07] LABS: BASOPHILS # (AUTO) 0.1 K/uL (0.0-0.2); BASOPHILS % (AUTO) 0.6 % (0.0-2.0); EOSINOPHILS # (AUTO) 0.4 K/uL (0.0-0.4); EOSINOPHILS % (AUTO) 3.6 % (0.0-4.0); HEMATOCRIT 32.5 % (36-54); HEMOGLOBIN 11.1 g/dL (14.0-18.0); LYMPHOCYTES # (AUTO) 2.6 K/uL (1.0-5.5); LYMPHOCYTES % (AUTO) 22.5 % (20.5-51.5); MEAN CORPUSCULAR HEMOGLOBIN 31 pg (27-31); MEAN CORPUSCULAR HGB CONC 34 % (32-36); MEAN CORPUSCULAR VOLUME 89 fL (79.0-98.0); MONOCYTES # (AUTO) 1.6 K/uL (0.0-1.0); MONOCYTES % (AUTO) 13.5 % (1.7-9.3); NEUTROPHILS % (AUTO) 59.8 % (40.0-70.0); PLATELET COUNT (AUTO) 358 K/uL (130-430); RED BLOOD CELL COUNT(AUTO) 3.63 MIL/uL (4.2-6.2); RED CELL DISTRIBUTION WIDTH 14.6 % (9.0-15.0); WHITE BLOOD COUNT (AUTO) 11.7 K/uL (4.8-10.8)
[2022-07-25] MEDS: amLODIPine BESYLATE 10 MG TABLET PO SCH (11:24)
[2022-07-25] MEDS: LACTOBACILLUS RHAMNOSUS GG 1 CAP CAPSULE GT SCH ×2 (11:24→22:27)
[2022-07-25] MEDS: MULTIVITAMINS TAB 1 TABLET GT SCH (11:25)
[2022-07-25] MEDS: METOPROLOL TARTRATE 25 MG TABLET GT SCH ×2 (11:25→22:30)
[2022-07-25] MEDS: SODIUM CHLORIDE 500 MG TABLET GT SCH ×2 (11:26→22:30)
[2022-07-25] MEDS: LANSOPRAZOLE 30 MG CAPSULE.DR GT SCH ×2 (11:26→22:27)
[2022-07-25] MEDS: DOCUSATE SODIUM 100 MG/10 ML UDC PO SCH ×2 (11:27→22:27)
[2022-07-25] MEDS: CHLORHEXIDINE GLUC 0.12% 15 ML MOUTHWASH UDC MM SCH ×2 (11:51→22:33)
[2022-07-25] MEDS: VALPROIC ACID ORAL SYRUP 250 MG/5 ML UDC GT SCH ×2 (11:52→22:34)
[2022-07-25] MEDS: LevETIRAcetam 500 MG/5 ML UDC ORAL LIQUID GT SCH ×2 (11:53→22:33)
[2022-07-25] MEDS: FLUCONAZOLE 200 mg/ NS 100 ML IV SCH (15:00)
--- NOTE | 2022-07-25 16:25 | NUR ---
Discharge Planning: DCP followed up with pt referral to [facility] [phone] pt accepted to [facility]. DCP arranged with [facility] [phone] ACLS w/RT Will Call. DCP made CM aware and charge nurse, patient packet taken to nurse station
[2022-07-25] MEDS ORDERED: CEFTAZIDIME 1 GM in D5W 50 ML IV SCH (18:00)
--- NOTE | 2022-07-25 18:25 | NUR ---
ARRANGED WITH [facility] CCT TRANSPORT TO [facility]. SENIOR APPLICATIONS DEVELOPER TIME IS 2129. SPOKE TO VALERIO.
[2022-07-25] MEDS: ENOXAPARIN SODIUM 40 MG/0.4 ML SYRINGE SUBCUT SCH (22:29)
[2022-07-25] MEDS: SENNOSIDES 8.6 MG TABLET GT SCH (22:30)
[2022-07-26 01:11] VITALS: BP_SYST 112
--- NOTE | 2022-07-26 01:32 | NUR ---
Transfer [facility] here to cook pickled meat pt for ACLS transfer back to [facility]. Paperwork given to tech/RT. VSS, afebrile. JONATHAN midline dressing C/D/I for IV antibiotics for 7 days. Suprapubic catheter intact.
--- NOTE | 2022-07-26 06:19 | NUR ---
CANCELLED THE TRANSPORT BOOKING WITH [facility]. SPOKE TO
== END 2022-07-26 01:40 | DRG 870 ==
LOC: SED 09:47 → SIC 14:06 → STU 07-23 23:45
PROVIDERS: ADMIT Family Medicine; ATTEND Family Medicine
PROC: 5A1955Z Respiratory Ventilation, Greater than 96 Consecutive Hours (ICD-10-PCS; principal; 2022-07-17)
DX: A41.9 Sepsis, unspecified organism (principal); R65.21 Severe sepsis with septic shock; J96.00 Acute respiratory failure, unspecified whether with hypoxia or hypercapnia; J15.1 Pneumonia due to Pseudomonas; J15.9 Unspecified bacterial pneumonia; G93.40 Encephalopathy, unspecified; Z99.11 Dependence on respirator [ventilator] status; E87.2 Acidosis; N39.0 Urinary tract infection, site not specified; R13.10 Dysphagia, unspecified; Y95 Nosocomial condition; G40.909 Epilepsy, unspecified, not intractable, without status epilepticus; Z20.822 Contact with and (suspected) exposure to COVID-19; I10 Essential (primary) hypertension; Z87.01 Personal history of pneumonia (recurrent); Z87.820 Personal history of traumatic brain injury; Z93.0 Tracheostomy status
CPT/HCPCS: 36415; 70450-TC; 71045; 76376; 80048; 80053; 80164; 81000; 82542; 82607; 82746; 83540; 83550; 83605; 83735; 84484; 85007; 85025; 85027; 85610-TC; 85730-TC; 87040; 87070-TC; 87081; 87086; 87205-TC; 93005; 94002; 94003; 94640; 94760; 96361; 96365; 96375; 99285; G0480; G0481; J0713; J1450; J1650; J1953; J2020; J2185; J2543; J2930; J3370; J7060; J7613; P9046

== ENCOUNTER 2024-05-31 23:17 | Inpatient (IN) | payer OTHER, MEDICAID ==
[~2024-05-31] VITALS: Ht 167.6 cm; Wt 112.9 kg
[~2024-05-31 23:17] MED LIST changes: +AMIN30LI51 GT; +CHOL100038 GT; +CLON0.1T GT; +FERR220S5 GT; +GLYC1TAB9 GT; +HYDR-4274 GT; +LACT10SO6 GT; +LEVO750T64 IVPB; +[UNRECOGNIZED DRUG - OTHER] IM
[2024-05-31 23:28] VITALS: BP_SYST 156; PULSE 154; RESP 43; TEMP 101.2; O2SAT 98
[2024-05-31] MEDS: ACETAMINOPHEN 650 MG SUPP.RECT RC ONE (23:30)
[2024-05-31] MEDS: CEFEPIME 2 GM in D5W 100 ML IV ONE (23:30)
[2024-05-31] MEDS ORDERED: CEFEPIME 2 GM/VIAL (MAXIPIME) ONE (23:40)
[2024-05-31 23:57] LABS: BASOPHILS # (AUTO) 0.1 K/uL (0.0-0.2); BASOPHILS % (AUTO) 0.6 % (0.0-2.0); HEMATOCRIT 36.3 % (36-54); HEMOGLOBIN 12.3 g/dL (14.0-18.0); LYMPHOCYTES # (AUTO) 0.6 K/uL (1.0-5.5); LYMPHOCYTES % (AUTO) 6.3 % (20.5-51.5); MEAN CORPUSCULAR HEMOGLOBIN 33 pg (27-31); MEAN CORPUSCULAR HGB CONC 34 % (32-36); MEAN CORPUSCULAR VOLUME 98 fL (79.0-98.0); MONOCYTES # (AUTO) 0.1 K/uL (0.0-1.0); MONOCYTES % (AUTO) 0.7 % (1.7-9.3); NEUTROPHILS # (AUTO) 9.2 K/uL (1.8-7.7); NEUTROPHILS % (AUTO) 92.4 % (40.0-70.0); PLATELET COUNT (AUTO) 256 K/uL (130-430); RED BLOOD CELL COUNT(AUTO) 3.69 MIL/uL (4.2-6.2); RED CELL DISTRIBUTION WIDTH 15.5 % (9.0-15.0); WHITE BLOOD COUNT (AUTO) 9.9 K/uL (4.8-10.8)
[2024-05-31] MEDS: NS 1000 ML IV.SOLN IV ONE (23:58)
[2024-06-01] VITALS (25 sets, daily range): BP systolic 63–122; PULSE 116–148; RESP 29–44; TEMP 99.8–103; O2SAT 91–98
[2024-06-01 00:42] LABS: BILIRUBIN,URINE 1+ (NEGATIVE); CLARITY/URINE CLOUDY (CLEAR); COLOR,URINE YELLOW (YELLOW); UROBILINOGEN,URINE 0.2 (0.2-1.0)
[2024-06-01 00:43] LABS: BLOOD, URINE 3+ (NEGATIVE); GLUCOSE,URINE NEGATIVE (NEGATIVE); KETONES,URINE NEGATIVE (NEGATIVE); LEUKOCYTE ESTERASE ,URINE 2+ (NEGATIVE); NITRITE, URINE NEGATIVE (NEGATIVE); PROTEIN URINE 3+ (NEGATIVE)
[2024-06-01 00:45] LABS: BACTERIA,URINE MANY /HPF (None Seen); WBC,URINE >100 /HPF (0-3)
[2024-06-01 00:48] LABS: ALANINE AMINOTRANSFERASE 98 U/L (12-78); ALBUMIN 1.7 g/dL (3.4-4.8); ANION GAP 15 (5-15); ASPARTATE AMINOTRANSFERASE 224 U/L (10-37); CARBON DIOXIDE 22 mmol/L (23-29); CHLORIDE 106 mmol/L (98-107); GFR AFRICAN AMERICAN 73 mL/min (>90); GFR NON AFRICAN-AMERICAN 60 mL/min (>90); GLUCOSE 138 mg/dL (74-106); INR 1.1 (0.80-1.20); PROTHROMBIN TIME 11.2 SECS (9.5-12.5); SODIUM SERUM 143 mmol/L (136-145); TOTAL BILIRUBIN 2.5 mg/dL (0.0-1.0); TOTAL PROTEIN, SERUM 7.4 g/dL (6.4-8.3); UREA NITROGEN, BLOOD 29 mg/dL (8-21)
[2024-06-01 00:50] LABS: BILIRUBIN,DIRECT 2.1 mg/dL (0.0-0.3)
[2024-06-01] MEDS ORDERED: VANCOMYCIN HCL 1000 MG/VIAL IV ONE (00:54)
[2024-06-01] MEDS ORDERED: VANCOMYCIN HCL 500 MG/VIAL IV ONE (00:55)
[2024-06-01] MEDS: VANCOMYCIN HCL 1,500 MG in NS 250 ML IV ONE (01:05)
[2024-06-01] MEDS: NACL 0.9% 1,000 ML IV ONE (02:45)
[2024-06-01] MEDS ORDERED: NOREPINEPHRINE 4 MG/4 ML VIAL IV ONE ×3 (03:16→09:15)
[2024-06-01] MEDS: NOREPINEPHRINE BITARTRATE 4 MG in NS 246 ML IV ONE (03:23)
[2024-06-01] MEDS: NOREPINEPHRINE BITARTRATE 4 MG in NS 246 ML IV PRN (03:42)
[2024-06-01] MEDS: NACL 0.9% 1,000 ML IV SCH (04:15)
[2024-06-01] MEDS: ACETAMINOPHEN 650 MG/20.3 ML UDC GT PRN (04:51)
[2024-06-01] MEDS: IBUPROFEN 800 MG TABLET PO PRN (06:33)
[2024-06-01] MEDS ORDERED: IBUPROFEN 800 MG TABLET ONE (06:37)
[2024-06-01] MEDS: metroNIDAZOLE 500 mg/NS 100 ML IV SCH (06:47)
[2024-06-01] MEDS ORDERED: DOXY100C5 PO (08:17)
[2024-06-01] MEDS ORDERED: NYST15CR36 TP (08:17)
[2024-06-01] MEDS ORDERED: NOREPINEPHRINE BITARTRATE 4 MG in NS 246 ML IV PRN (09:15)
[2024-06-01 09:21] LABS: COVID19 ANTIGEN SOFIA FIA NEGATIVE (NEGATIVE)
[2024-06-01 09:22] LABS: INFLUENZA TYPE A Negative (NEGATIVE); INFLUENZA TYPE B NEGATIVE (NEGATIVE)
[2024-06-01] MEDS: ALBUTEROL SULFATE 0.083% 2.5 MG/3 ML VIAL.NEB INH SCH (10:18)
[2024-06-01] MEDS: CEFEPIME 1 GM in D5W 50 ML IV SCH (10:20)
[2024-06-01] MEDS ORDERED: cloNIDine HCL 0.1 MG TABLET GT SCH (10:30)
[2024-06-01] MEDS ORDERED: HYDROcodone/ACETAMIN 10-325 MG TAB GT SCH (10:30)
[2024-06-01] MEDS ORDERED: ACETAMINOPHEN 650 MG/20.3 ML UDC GT PRN ×2 (10:30)
[2024-06-01] MEDS ORDERED: ALBUTEROL SULFATE 0.083% 2.5 MG/3 ML VIAL.NEB INH PRN (10:30)
[2024-06-01] MEDS ORDERED: BISACODYL 10 MG/SUPPOSITORY RC PRN (10:30)
[2024-06-01] MEDS ORDERED: NALOXONE HCL 0.4 MG/ML AMP (NARCAN) IVP PRN (10:30)
[2024-06-01] MEDS: LevETIRAcetam 500 MG/5 ML UDC ORAL LIQUID GT SCH (10:57)
[2024-06-01] MEDS ORDERED: NOREPINEPHRINE BITARTRATE 4 MG in D5W 246 ML IV PRN (11:15)
[2024-06-01] MEDS: LORazepam 2 MG/ML VIAL IVP PRN (11:30)
[2024-06-01] MEDS: NOREPINEPHRINE 4 MG/4 ML VIAL IV ONE ×2 (11:46→17:45)
[2024-06-01] MEDS ORDERED: SODIUM CHLORIDE IV PRN (12:00)
[2024-06-01] MEDS ORDERED: NOREPINEPHRINE IV PRN (12:00)
[2024-06-01] MEDS: VALPROIC ACID ORAL SYRUP 250 MG/5 ML UDC GT ONE (12:34)
[2024-06-01] MEDS: ALBUMIN HUMAN 25% 50 ML IV SCH (12:43)
[2024-06-01] MEDS: VANCOMYCIN HCL 1,000 MG in NS 250 ML IV SCH (12:46)
[2024-06-01] MEDS ORDERED: ALBUTEROL SULFATE 0.083% 2.5 MG/3 ML VIAL.NEB INH SCH (18:00)
[2024-06-01] MEDS ORDERED: LevETIRAcetam 500 MG/5 ML UDC ORAL LIQUID GT SCH (21:00)
[2024-06-01] MEDS: NYSTATIN 30 GM TOPICAL CREAM TP SCH (21:53)
[2024-06-01] MEDS: SENNOSIDES 8.6 MG TABLET GT SCH (21:54)
[2024-06-01] MEDS: DOCUSATE SODIUM 100 MG CAPSULE PO SCH (21:54)
[2024-06-01] MEDS: ENOXAPARIN SODIUM 40 MG/0.4 ML SYRINGE SUBCUT SCH (21:54)
[2024-06-01] MEDS: CHLORHEXIDINE GLUC 0.12% 15 ML MOUTHWASH UDC MM SCH (21:54)
[2024-06-01] MEDS: LACTULOSE 20 GM/30 ML UDC GT SCH (21:54)
[2024-06-01] MEDS: GLYCOPYRROLATE 1 MG TABLET GT SCH (21:54)
[2024-06-01] MEDS: VALPROIC ACID ORAL SYRUP 250 MG/5 ML UDC GT SCH (21:55)
[2024-06-01] MEDS: SODIUM CHLORIDE IV PRN (23:19)
[2024-06-01] MEDS: NOREPINEPHRINE IV PRN (23:19)
[2024-06-02] VITALS (20 sets, daily range): BP systolic 67–87; PULSE 81–148; RESP 38–41; TEMP 100.2–104; O2SAT 88–94
[2024-06-02] MEDS ORDERED: COMMUNICATION ORDER XX ONE (00:30)
[2024-06-02] MEDS: VASOPRESSIN 20 UNITS/ML VIAL IV ONE (01:14)
[2024-06-02] MEDS: VASOPRESSIN 40 UNITS in NS 38 ML IV PRN (01:21)
[2024-06-02] MEDS: PHENYLEPHRINE HCL 10 MG/ML VIAL (NEOSYNEPHRINE) ONE (02:12)
[2024-06-02] MEDS: PHENYLEPHRINE HCL 100 MG in NS 240 ML IV PRN (02:18)
[2024-06-02] MEDS: NACL 0.9% 1,000 ML IV ONE (02:24)
[2024-06-02] MEDS: NS 500 ML IV ONE (02:30)
[2024-06-02] MEDS: EPINEPHrine HCL 1 MG/ML VIAL ONE (03:25)
[2024-06-02] MEDS: EPINEPHrine HCL 10 MG in NS 240 ML IV PRN (03:39)
[2024-06-02 06:00] LABS: ALBUMIN 1.9 g/dL (3.4-4.8); CALCIUM 8.2 mg/dL (8.4-11.0); CREATININE 2.92 mg/dL (0.55-1.30); TOTAL BILIRUBIN 2.2 mg/dL (0.0-1.0); TOTAL PROTEIN, SERUM 7.4 g/dL (6.4-8.3)
[2024-06-02] MEDS: DEXTROSE 50% JECT 50 ML DISP.SYRIN ONE (06:12)
[2024-06-02] MEDS ORDERED: DEXTROSE 50% JECT 50 ML DISP.SYRIN IVP ONE (06:30)
[2024-06-02] MEDS: SODIUM BICARBONATE 8.4% JECT 50 MEQ/50 ML SYRINGE IVP ONE ×2 (06:45→07:08)
[2024-06-02] MEDS: D5NS 1,000 ML IV SCH (06:46)
[2024-06-02 07:36] LABS: HEMATOCRIT 34.2 % (36-54); HEMOGLOBIN 9.3 g/dL (14.0-18.0); MEAN CORPUSCULAR HEMOGLOBIN 32 pg (27-31); MEAN CORPUSCULAR HGB CONC 27 % (32-36); MEAN CORPUSCULAR VOLUME 118 fL (79.0-98.0); PLATELET COUNT (AUTO) 186 K/uL (130-430); RED BLOOD CELL COUNT(AUTO) 2.89 MIL/uL (4.2-6.2); RED CELL DISTRIBUTION WIDTH 19.6 % (9.0-15.0)
[2024-06-02 07:42] LABS: WHITE BLOOD COUNT (AUTO) 48.4 K/uL (4.8-10.8)
[2024-06-02 08:18] LABS: BAND % (MANUAL) 28 % (0-6); BASOPHILS % (MANUAL) 0 % (0-2); EOSINOPHILS % (MANUAL) 0 % (0-7); LYMPHOCYTES % (MANUAL) 23 % (20-46); MONOCYTES % (MANUAL) 15 % (0-11)
[2024-06-02 08:21] LABS: CORRECTED WHITE BLOOD COUNT 38.4 K/uL (4.5-11.0)
[2024-06-02 08:25] LABS: PLATELET ESTIMATE ADEQUATE (ADEQUATE)
[2024-06-02] MEDS ORDERED: PROTEIN HYDROLYS GT SCH (09:00)
[2024-06-02] MEDS ORDERED: [UNRECOGNIZED DRUG - OTHER] GT SCH (09:00)
[2024-06-02] MEDS: FERROUS SULFATE 300 MG/5 ML UDC GT SCH (09:00)
[2024-06-02] MEDS: CHOLECALCIFEROL (VITAMIN D3) 2,000 UNIT TABLET GT SCH (09:00)
[2024-06-02] MEDS ORDERED: AMINO ACIDS GT SCH (09:00)
[2024-06-02] MEDS: MULTIVITAMINS TAB 1 TABLET GT SCH (09:00)
[2024-06-02] MEDS: levETIRAcetam 1,000 MG in NS 100 ML IV SCH (10:54)
== END 2024-06-02 14:00 | DRG 871 ==
LOC: SED 23:17 → SIC 06-01 03:04
PROVIDERS: ADMIT Family Medicine; ATTEND Family Medicine
PROC: 5A1945Z Respiratory Ventilation, 24-96 Consecutive Hours (ICD-10-PCS; principal; 2024-06-01)
DX: A41.9 Sepsis, unspecified organism (principal); J18.9 Pneumonia, unspecified organism; R65.21 Severe sepsis with septic shock; N17.9 Acute kidney failure, unspecified; N39.0 Urinary tract infection, site not specified; J96.10 Chronic respiratory failure, unspecified whether with hypoxia or hypercapnia; Z20.822 Contact with and (suspected) exposure to COVID-19; G40.909 Epilepsy, unspecified, not intractable, without status epilepticus; Z87.820 Personal history of traumatic brain injury; Z79.899 Other long term (current) drug therapy; Z93.0 Tracheostomy status; I46.9 Cardiac arrest, cause unspecified
CPT/HCPCS: 36415; 71045; 76705; 80048; 80053; 80076; 81000; 81001; 81015; 82150; 82948; 83605; 83690; 83735; 84484; 85007; 85025; 85027; 85610; 85730; 87040; 87081; 87086; 87186; 93005; 94002; 94003; 94640; 99291; J0171; J0692; J1650; J1953; J2060; J3370; J3490; J7050; J7060; P9046